=== PATIENT | male | born 1960 | race Caucasian/White ===

== ENCOUNTER → 2017-02-09 | Outpatient (CLI) | payer MEDICARE, OTHER ==
[2013-12-18 11:31] VITALS: BP 132/81
[~2017-02-09] MED LIST: DOCU100C28 PO; LORA10TA55 PO; MEGE400O PO; METO-269 PO; MULT1TAB90 PO; OMEP20CA9 PO; POLY17PO3 PO; SIMV10TA3 PO; TEMA15CA PO
--- NOTE | 2017-02-09 13:23 | CARD ---
APPROVED REPORT EXAM: Two-dimensional and M-mode echocardiogram with Doppler and color Doppler. Other Information Quality : Technically Limited Technically limited study due to pectus excavatum INDICATION Murmur 2D DIMENSIONS RVDd1.9 (2.9-3.5cm)Left Atrium(2D)2.4 (1.6-4.0cm) IVSd1.0 (0.7-1.1cm)Aortic Root(2D)2.5 (2.0-3.7cm) LVDd4.8 (3.9-5.9cm)LVOT Diameter2.1 (1.8-2.4cm) PWd1.0 (0.7-1.1cm)LVDs4.0 (2.5-4.0cm) FS (%) 20.0 %SV38.4 ml LVEF(%)40.0 (>50%) LEFT VENTRICLE The left ventricle is normal size. There is normal left ventricular wall thickness. The left ventricu lar systolic function is normal and the ejection fraction is within normal range. EF 55% Grossly norm al wall motion on significantly limited images due to body habitus. RIGHT VENTRICLE The right ventricle is normal size. ATRIA Not well visualized. The right atrium is not well visualized. Interatrial septum not well visualized. AORTIC VALVE The aortic valve is sclerotic but opens well. Doppler and Color Flow revealed no significant aortic r egurgitation. There is no significant aortic valvular stenosis. MITRAL VALVE The mitral valve is thickened but opens well. There is no evidence of mitral valve prolapse. There is no mitral valve stenosis. Doppler and Color Flow revealed no mitral valve regurgitation noted. TRICUSPID VALVE The tricuspid valve is not well visualized but appears to be functioning normally by Doppler interrog ation. Doppler and Color Flow revealed no tricuspid valve regurgitation noted. There is no tricuspid valve stenosis. PULMONIC VALVE The pulmonic valve is not well visualized but appears to be functioning normally by Doppler interroga tion. Doppler and Color Flow revealed no pulmonic valvular regurgitation. There is no pulmonic valvul ar stenosis. GREAT VESSELS The aortic root is normal in size. The ascending aorta is not well seen. The IVC was not visualized. PERICARDIAL EFFUSION There is no evidence of significant pericardial effusion. Critical Notification Critical Value: No <Conclusion> Grossly normal wall motion on significantly limited images due to body habitus. The left ventricular systolic function is normal and the ejection fraction is within normal range. EF 55%
== END | disposition home or self-care (01) ==
LOC: ECHO 08:57
PROVIDERS: ATTEND Internal Medicine Cardiovascular Disease
DX: R01.1 Cardiac murmur, unspecified (principal)
CPT/HCPCS: 93306

== ENCOUNTER → 2017-07-07 | Outpatient (CLI) | payer MEDICARE, OTHER | END | disposition home or self-care (01) | LOC: US 10:11 | DX: N50.89 Other specified disorders of the male genital organs (principal) | CPT/HCPCS: 76870 ==

== ENCOUNTER 2018-05-29 10:54 | Inpatient (IN) | payer MEDICARE, OTHER ==
[2018-05-29] VITALS (9 sets, daily range): BP systolic 95–134; BP diastolic 61–75
[~2018-05-29] VITALS: Ht 198.1 cm; Wt 75.4 kg
[~2018-05-29 10:54] MED LIST changes: +POLY17PO28 PO; -POLY17PO3 PO
[2018-05-29] MEDS ORDERED: IV NORMAL SALINE 1000ML BAG 1,000 ML IV ONE ×2 (11:00→13:45)
[2018-05-29] MEDS ORDERED: ONDANSETRON PF 4 MG/2 ML VIAL. IV ONE (11:00)
[2018-05-29] MEDS ORDERED: PANTOPRAZOLE IV PUSH 40 MG VIAL. IVP ONE (11:00)
--- NOTE | 2018-05-29 11:06 | EKG ---
[facility] [address] [place] [address] Test Date: 2018-05-29 Test Time: 11:00:53 Pat Name: NELY NAVARRO Department: Room: Gender: M Resident Surgeon: CHIOMA : 1960 Requested By: ANNY MANN Order Number: [id number] Reading MD: Measurements Intervals [place] Rate: 138 P: -99 SD: 92 QRS: -118 QRSD: 94 T: 78 QT: 330 QTc: 508 Interpretive Statements SUPRAVENTRICULAR TACHYCARDIA VENTRICULAR PREMATURE COMPLEX(ES) ABNORMAL RIGHT SUPERIOR AXIS DEVIATION R-S TRANSITION ZONE IN V LEADS DISPLACED TO THE LEFT S1,S2,S3 PATTERN LEFT ANTERIOR FASCICULAR BLOCK INCOMPLETE RIGHT BUNDLE BRANCH BLOCK QRS(T) CONTOUR ABNORMALITY CONSIDER ANTEROSEPTAL MYOCARDIAL DAMAGE ABNORMAL ECG RI6.01 No previous ECG available for comparison
[2018-05-29 11:18] LABS: BASO % 0 % (0-3); EOS % 0 % (0-3); HEMATOCRIT 42.3 % (39.0-53.0); HEMOGLOBIN 14.6 g/dL (13.0-17.5); LYMPH # 0.5 x10^3/uL (1.0-4.8); LYMPH % 6 % (24-48); MEAN CORPUSCULAR HEMOGLOBIN 30 pg (25-35); MEAN CORPUSCULAR HGB CONC 35 g/dL (31-37); MEAN CORPUSCULAR VOLUME 86 fL (79-100); MONO # 0.4 x10^3/uL (0.0-1.1); MONO % 5 % (0-9); NEUT # 7.2 x10^3uL (1.8-7.7); NEUT % 89 % (31-73); PLATELET COUNT 172 x10^3/uL (140-400); RED BLOOD COUNT 4.92 x10^6/uL (4.30-5.70); RED CELL DISTRIBUTION WIDTH 13.9 % (11.5-14.5); WHITE BLOOD COUNT 8.1 x10^3/uL (4.0-11.0)
[2018-05-29 11:27] LABS: CREATININE 1.1 mg/dL (0.7-1.3); GFR 68.8; POTASSIUM 3.5 mmol/L (3.5-5.1); PROTHROMBIN TIME PATIENT 14.1 SEC (11.7-14.0)
[2018-05-29] MEDS ORDERED: fentaNYL PF VIAL 100 MCG/2 ML VIAL IV ONE (11:30)
[2018-05-29 11:33] LABS: ALBUMIN 3.8 g/dL (3.4-5.0); ALBUMIN/GLOBULIN RATIO 1.2 (1.0-1.7); MAGNESIUM 1.6 mg/dL (1.8-2.4); TOTAL BILIRUBIN 0.6 mg/dL (0.2-1.0)
[2018-05-29 11:40] LABS: FECAL OB PT POSITIVE (NEG)
[2018-05-29 11:41] LABS: CREATINE KINASE 96 U/L (39-308)
[2018-05-29] MEDS ORDERED: IOHEXOL 300 MG/ML 100ML VIAL. IV ONE (11:45)
--- NOTE | 2018-05-29 11:45 | PHYS DOC ---
Past Medical History Past Medical History: GERD, High Cholesterol, Hypertension, Other Additional Past Medical Histor: marfan syndrome, "heart problems", pectus excavatum Past Medical History Unable to obtain- poor historian Past Surgical History: Hip Replacement Additional Past Surgical Histo: right hip, Chest wall surgery? Past Surgical History Unable to obtain- poor historian Alcohol Use: None Drug Use: None Social History Unable to obtain- poor historian Adult General Chief Complaint Chief Complaint: HEMATEMESIS/VOMITING BLOOD HPI HPI This is a 58-year-old male with a past medical history of Marfan syndrome, presenting to the emergency department via EMS with concern for hematemesis. Patient states he began feeling nauseous and started vomiting 3 days ago, this has also been associated with diffuse abdominal pain and chest pain that occurs during episodes of vomiting. Patient cannot describe the appearance of his vomit and does not remember when he first noticed seen blood in his vomit. EMS reports noting "coffee ground emesis" on patient's chest and shirt upon their arrival. Denies use of blood thinners. History difficult to obtain secondary to a baseline speech impediment & pt is a poor historian Review of Systems Review of Systems Cardiovascular: Reports chest pain that occurs with vomiting GI: Reports abdominal pain, nausea, vomiting, hematemesis; Denies bloody stools , diarrhea [] Unable to obtain complete ROS secondary to baseline speech impediment & poor historian Current Medications Current Medications Current Medications Medications (Trade) Dose Ordered Sig/Lonnie Start Time Stop Time Status Last Admin Dose Admin Azithromycin 250 ml @ 250 mls/hr 1X ONCE 05/29/18 13:15 05/29/18 14:14 DC 05/29/18 13:52 250 MLS/HR Ceftriaxone Sodium (Rocephin) 1 gm 1X ONCE 05/29/18 13:15 05/29/18 13:18 DC 05/29/18 13:50 1 GM Fentanyl Citrate (Fentanyl 2ml Vial) 50 mcg 1X ONCE 05/29/18 11:30 05/29/18 11:31 DC 05/29/18 11:31 50 MCG Iohexol (Omnipaque 300 Mg/ml) 75 ml 1X ONCE 05/29/18 11:45 05/29/18 11:46 DC 05/29/18 12:04 75 ML Ondansetron HCl (Zofran) 4 mg 1X ONCE 05/29/18 11:00 05/29/18 11:02 DC 05/29/18 11:27 4 MG Pantoprazole Sodium (PROTONIX VIAL for IV PUSH) 80 mg 1X ONCE 05/29/18 11:00 05/29/18 11:02 DC 05/29/18 11:34 80 MG Pantoprazole Sodium 80 mg/ Sodium Chloride 100 ml @ 10 mls/hr 1X ONCE 05/29/18 12:00 05/29/18 21:59 05/29/18 12:29 10 MLS/HR Sodium Chloride 1,000 ml @ 1,000 mls/hr 1X ONCE 05/29/18 13:45 05/29/18 14:44 DC 05/29/18 14:04 1,000 MLS/HR Allergies Allergies Allergies Coded Allergies Type Severity Reaction Last Updated Verified No Known Drug Allergies 12/11/13 No Physical Exam Physical Exam Constitutional: Marfanoid body habitus, presence of a moderate amount of dried dark red blood on shirt HENT: Normocephalic, atraumatic Eyes: Conjunctiva normal, no discharge. [] Neck: Normal range of motion, no tenderness, supple, no meningeal signs [] Cardiovascular: Tachycardic, regular rhythm, early systolic murmur, left carotid bruit Lungs & Thorax: Bilateral breath sounds clear to auscultation, pectus carinatum deformity, midline chest incision scar noted (pt uncertain of the type of surgery he had) [] Abdomen: Soft, mild diffuse tenderness : Left testicular swelling and mild tenderness noted, possible hydrocele Rectal exam: Stool- brown, no gross blood, no external or internal hemorrhoids appreciated. Skin: Warm, dry, no erythema, no rash, pallor noted Back: No tenderness, no CVA tenderness. [] Extremities: Arachnodactyly, no tenderness, no cyanosis, no clubbing, ROM intact , no edema. [] Neurologic: Alert, normal motor function, normal sensory function, no focal deficits noted. [] Psychologic: Affect normal, mood anxious [] Current Patient Data Vital Signs Vital Signs Date Time Temp Pulse Resp B/P (MAP) Pulse Ox O2 Delivery O2 Flow Rate FiO2 05/29/18 13:35 118 114/68 (83) 95 Room Air 05/29/18 11:31 21 05/29/18 10:54 99.1 99.1 Lab Values Laboratory Tests Test 05/29/18 11:05 05/29/18 11:10 05/29/18 11:12 05/29/18 12:47 White Blood Count 8.1 x10^3/uL (4.0-11.0) Red Blood Count 4.92 x10^6/uL (4.30-5.70) Hemoglobin 14.6 g/dL (13.0-17.5) Hematocrit 42.3 % (39.0-53.0) Mean Corpuscular Volume 86 fL (79-100) Mean Corpuscular Hemoglobin 30 pg (25-35) Mean Corpuscular Hemoglobin Concent 35 g/dL (31-37) Red Cell Distribution Width 13.9 % (11.5-14.5) Platelet Count 172 x10^3/uL (140-400) Neutrophils (%) (Auto) 89 % (31-73) H Lymphocytes (%) (Auto) 6 % (24-48) L Monocytes (%) (Auto) 5 % (0-9) Eosinophils (%) (Auto) 0 % (0-3) Basophils (%) (Auto) 0 % (0-3) Neutrophils # (Auto) 7.2 x10^3uL (1.8-7.7) Lymphocytes # (Auto) 0.5 x10^3/uL (1.0-4.8) L Monocytes # (Auto) 0.4 x10^3/uL (0.0-1.1) Eosinophils # (Auto) 0.0 x10^3/uL (0.0-0.7) Basophils # (Auto) 0.0 x10^3/uL (0.0-0.2) Segmented Neutrophils % 65 % (35-66) Band Neutrophils % 25 % (0-9) H Lymphocytes % 6 % (24-48) L Monocytes % 3 % (0-10) Metamyelocytes % 1 % (0-0) H Platelet Estimate Adequate (ADEQUATE) Prothrombin Time 14.1 SEC (11.7-14.0) H Prothrombin Time INR 1.1 (0.8-1.1) PTT 33 SEC (24-38) Sodium Level 140 mmol/L (136-145) Potassium Level 3.5 mmol/L (3.5-5.1) Chloride Level 103 mmol/L (98-107) Carbon Dioxide Level 29 mmol/L (21-32) Anion Gap 8 (6-14) Blood Urea Nitrogen 18 mg/dL (8-26) Creatinine 1.1 mg/dL (0.7-1.3) Estimated GFR (Cockcroft-Gault) 68.8 BUN/Creatinine Ratio 16 (6-20) Glucose Level 149 mg/dL (70-99) H Lactic Acid Level 2.0 mmol/L (0.4-2.0) Calcium Level 9.0 mg/dL (8.5-10.1) Magnesium Level 1.6 mg/dL (1.8-2.4) L Total Bilirubin 0.6 mg/dL (0.2-1.0) Aspartate Amino Transferase (AST) 17 U/L (15-37) Alanine Aminotransferase (ALT) 29 U/L (16-63) Alkaline Phosphatase 105 U/L (46-116) Creatine Kinase 96 U/L (39-308) Creatine Kinase MB (Mass) < 0.5 ng/mL (0.0-3.6) Creatine Kinase MB Relative Index % (0-4) Troponin I Quantitative < 0.017 ng/mL (0.000-0.055) Total Protein 7.0 g/dL (6.4-8.2) Albumin 3.8 g/dL (3.4-5.0) Albumin/Globulin Ratio 1.2 (1.0-1.7) Lipase 117 U/L (73-393) Stool Occult Blood Positive (NEG) Glucose (Fingerstick) 142 mg/dL (70-99) H Urine Collection Type U cath Urine Color Yellow Urine Clarity Clear Urine pH 6.5 Urine Specific Lindsay >=1.030 Urine Protein Negative mg/dL (NEG-TRACE) Urine Glucose (UA) Negative mg/dL (NEG) Urine Ketones (Stick) Trace mg/dL (NEG) Urine Blood Negative (NEG) Urine Nitrite Negative (NEG) Urine Bilirubin Negative (NEG) Urine Urobilinogen Dipstick 1.0 mg/dL (0.2 mg/dL) Urine Leukocyte Esterase Negative (NEG) Urine RBC 1-2 /HPF (0-2) Urine WBC 0 /HPF (0-4) Urine Bacteria 0 /HPF (0-FEW) Urine Mucus Mod /LPF Laboratory Tests 05/29/18 11:05 Laboratory Tests 05/29/18 11:05 EKG EKG 05/29/2018 @ 1100: Sinus tachycardia at 138 bpm, RBBB, no STEMI Radiology/Procedures Radiology/Procedures PROCEDURE: CT CHEST ABD PELVIS W/CONTRAST CT chest, abdomen and pelvis with contrast PQRS statement: CT scans at this facility use dose reduction including either automated exposure control, iterative reconstructions, and /or weight based radiation dosing via mA and kV modification when appropriate to reduce radiation dose to as low as reasonably achievable. HISTORY: Chest and epigastric pain, hemoptysis. TECHNIQUE: Helical CT imaging of the chest, abdomen and pelvis with 75 mL Omnipaque 300 intravenous contrast. Chest findings: Sternal suture wires in pectus excavatum. Heart size normal. Pulmonary vessels and thoracic aorta are unremarkable. There is abnormal fluid distention and marked wall thickening throughout thoracic esophagus leading up to a small sliding hiatal hernia of the gastric cardia. Mild apical pleural-parenchymal scarring. Nodular opacities of the left lower lobe. No pleural effusions. Abdomen findings: Hiatal hernia of the gastric cardia. Mild atrophy of the left hepatic lobe. Pancreas, gallbladder, spleen, adrenal glands and kidneys are unremarkable. Mild calcified plaque of the aorta and iliac arteries. No bowel obstruction or inflammatory change. Appendix is poorly visualized. No abdominal fluid or adenopathy. Pelvis findings: Large fatty left inguinal hernia extending down the scrotum, small bowel loops in the sigmoid colon approaches the mouth of the hernia without intrarenal hernia sac. Bladder, prostate and rectum are unremarkable. No fluid or adenopathy. Extensive streak artifact from bilateral hip arthroplasties. IMPRESSION: 1. Nodular opacities of the left lower lobe likely pneumonia. Follow-up CT imaging in 3 months is advised to document this resolves to exclude the possibility of neoplasia per the Fleischner guidelines. 2. Small sliding hiatal hernia of the upper stomach. Abnormal fluid distention and abnormal wall thickening throughout the thoracic esophagus, likely representing esophagitis. Esophageal malignancy is a secondary consideration but considered less likely given the diffuse long segmental nature of involvement. 3. Large fatty left inguinal hernia. Exposure: One or more of the following individualized dose reduction techniques were utilized for this examination: 1. Automated exposure control 2. Adjustment of the mA and/or kV according to patient size 3. Use of iterative reconstruction technique Electronically signed by: Rahul Bailey MD (05/29/2018 12:28 PM) [facility] PROCEDURE: TESTICULAR/SCROTUM Examination: Ultrasound testis HISTORY: History of left testicular pain, swelling COMPARISON: 07/07/2017 FINDINGS: The right testis measures 4.6 x 2.0 x 3.1 cm. Right testis appears somewhat slightly heterogenous. The left testis measures 3.0 x 1.5 x 2.2 cm Blood flow identified in the right and left testis. There is a 7.6 cm echogenicity identified between the testis probably the large left-sided inguinal hernia seen on the CT scan. Right and left epididymis grossly appears unremarkable. IMPRESSION: 1. Large echogenicity measuring 7.6 cm identified within the right and left testis probably large fat-containing left-sided inguinal hernia seen on CT scan. 2. Slight heterogeneous appearance of the right testis, nonspecific. Close interval follow-up examination can be considered. Course & Med Decision Making Course & Med Decision Making Pertinent Labs and Imaging studies reviewed. (See chart for details) This is a 58-year-old male with a past medical history of Marfan syndrome, presenting to the emergency department via EMS with concern for hematemesis. Dried vomitus with signs of blood noted on patient's shirt upon arrival. Denies ETOH consumption. Patient noted to be tachypneic and tachycardic. SIRS positive. Bandemia noted. Lactic acid WNL. IV fluid hydration provided. Empiric Protonix bolus and drip initiated. Occult stool obtained and positive. EKG stable. CT chest/abdomen/pelvis obtained with findings concerning for left lower lobe pneumonia, as well as esophagitis. Empiric antibiotics given. Left testicular scrotal swelling noted area. Ultrasound obtained with findings consistent for inguinal hernia. Patient requiring admission for further evaluation and treatment. Discussed with Dr. Plummer (PCP) who is in agreement with admission. Requests ICU admission and GI consultation. Discussed case with Dr. Bueno (GI) who is in agreement with consult. Discussed findings and plan with patient and family, who acknowledge understanding and agreement. Dragon Disclaimer Dragon Disclaimer This electronic medical record was generated, in whole or in part, using a voice recognition dictation system. Departure Departure Impression: Primary Impression: Pneumonia Additional Impressions: GI bleed Bandemia SIRS (systemic inflammatory response syndrome) Swelling of left testicle Disposition: ADMITTED INPATIENT Admitting Physician: Aniyah Plummer Condition: GUARDED Referrals: ANIYAH PLUMMER MD (PCP) Critical Care Time Critical care time was 30 minutes which includes time at bedside, spent in discussion of patient's care with specialists and/or family members, with interpretation of laboratory and/or radiological studies and is exclusive of procedures. Problem Qualifiers Primary Impression: Pneumonia Pneumonia type: due to unspecified organism Laterality: left Lung location : lower lobe of lung Qualified Codes: J18.1 - Lobar pneumonia, unspecified organism Additional Impressions: GI bleed GI bleed type/associated pathology: unspecified gastrointestinal hemorrhage type Qualified Codes: K92.2 - Gastrointestinal hemorrhage, unspecified ANNY MANN DO May 29, 2018 11:45
[2018-05-29] MEDS ORDERED: PANTOPRAZOLE SODIUM IV DRIP 80 MG in IV NORMAL SALINE 100ML 100 ML IV ONE (12:00)
--- NOTE | 2018-05-29 12:32 | RAD ---
CT chest, abdomen and pelvis with contrast PQRS statement: CT scans at this facility use dose reduction including either automated exposure control, iterative reconstructions, and /or weight based radiation dosing via mA and kV modification when appropriate to reduce radiation dose to as low as reasonably achievable. HISTORY: Chest and epigastric pain, hemoptysis. TECHNIQUE: Helical CT imaging of the chest, abdomen and pelvis with 75 mL Omnipaque 300 intravenous contrast. Chest findings: Sternal suture wires in pectus excavatum. Heart size normal. Pulmonary vessels and thoracic aorta are unremarkable. There is abnormal fluid distention and marked wall thickening throughout thoracic esophagus leading up to a small sliding hiatal hernia of the gastric cardia. Mild apical pleural-parenchymal scarring. Nodular opacities of the left lower lobe. No pleural effusions. Abdomen findings: Hiatal hernia of the gastric cardia. Mild atrophy of the left hepatic lobe. Pancreas, gallbladder, spleen, adrenal glands and kidneys are unremarkable. Mild calcified plaque of the aorta and iliac arteries. No bowel obstruction or inflammatory change. Appendix is poorly visualized. No abdominal fluid or adenopathy. Pelvis findings: Large fatty left inguinal hernia extending down the scrotum, small bowel loops in the sigmoid colon approaches the mouth of the hernia without intrarenal hernia sac. Bladder, prostate and rectum are unremarkable. No fluid or adenopathy. Extensive streak artifact from bilateral hip arthroplasties. IMPRESSION: 1. Nodular opacities of the left lower lobe likely pneumonia. Follow-up CT imaging in 3 months is advised to document this resolves to exclude the possibility of neoplasia per the Fleischner guidelines. 2. Small sliding hiatal hernia of the upper stomach. Abnormal fluid distention and abnormal wall thickening throughout the thoracic esophagus, likely representing esophagitis. Esophageal malignancy is a secondary consideration but considered less likely given the diffuse long segmental nature of involvement. 3. Large fatty left inguinal hernia. Exposure: One or more of the following individualized dose reduction techniques were utilized for this examination: 1. Automated exposure control 2. Adjustment of the mA and/or kV according to patient size 3. Use of iterative reconstruction technique Electronically signed by: Rahul Bailey MD (05/29/2018 12:28 PM) [facility]
[2018-05-29 12:59] LABS: BILIRUBIN,URINE NEGATIVE (NEG); CLARITY,URINE CLEAR; COLOR,URINE YELLOW; NITRITE,URINE NEGATIVE (NEG); PH,URINE 6.5; PROTEIN,URINE NEGATIVE (NEG-TRACE)
[2018-05-29 13:08] LABS: % BANDS 25 % (0-9); % LYMPHS 6 % (24-48); % METAS 1 % (0-0); % MONOS 3 % (0-10); % SEGS 65 % (35-66)
[2018-05-29 13:09] LABS: PLT ESTIMATE ADEQUATE (ADEQUATE)
[2018-05-29 13:10] LABS: BACTERIA,URINE 0 /HPF (0-FEW); WBC,URINE 0 /HPF (0-4)
[2018-05-29] MEDS ORDERED: AZITHRMYCN 500MG IVPB FOR OMNI 250 ML IV ONE (13:15)
[2018-05-29] MEDS ORDERED: cefTRIAXone IV Push 1 GM VIAL. IVP ONE (13:15)
[2018-05-29] MEDS ORDERED: ONDANSETRON PF 4 MG/2 ML VIAL. IV PRN (14:00)
[2018-05-29] MEDS ORDERED: IPRATRPIUM/ALBUTEROL 0.5/2.5MG 3 ML NEBU. NEB ONE (15:45)
--- NOTE | 2018-05-29 15:50 | PDOC ---
Provider Note Provider Note Pt seen in ICU. H&P dictated. #[id number] IHSAN PLUMMER MD May 29, 2018 15:50
[2018-05-29] MEDS: POTASSIUM CL 20MEQ D5-0.9%NACL 1,000 ML IV SCH (15:59)
[2018-05-29] MEDS ORDERED: SIMV10TA3 PO (16:17)
--- NOTE | 2018-05-29 16:26 | HP ---
ADMIT DATE: 05/29/2018 LOCATION: 107. REASON FOR ADMISSION TO THE HOSPITAL: Vomiting for last 3 days, possible upper GI bleed, vomiting some blood, also pneumonia. HISTORY OF PRESENT ILLNESS: The patient is a 58-year-old male with history of Marfan syndrome, pectus excavatum, COPD. He was having nausea and vomiting for the last 2-3 days, got progressively worse. He was noticed to vomit some blood and also when he came in, chest x-ray showed infiltrates in the lungs, was admitted with diagnosis of both pneumonia as well as upper GI bleed, was admitted to the ICU. Hemoglobin remained stable. His blood pressure was stable. PAST MEDICAL HISTORY: Has a history of Marfan syndrome, pectus excavatum, hypertension, hyperlipidemia, GERD. PAST SURGICAL HISTORY: Right hip replacement. ALLERGIES: No known drug allergies. MEDICATIONS AT HOME: Colace daily, multivitamin daily, simvastatin 10 mg daily, losartan 10 mg daily, metoprolol 50 mg daily, omeprazole 20 mg daily, MiraLax 17 grams daily. PERSONAL HISTORY: Denies smoking, alcohol, drug abuse. SOCIAL HISTORY: He lives in a jail, able to ambulate with a walker. FAMILY HISTORY: All his brothers are tall, has Marfan syndrome in the family. REVIEW OF SYSTEMS: Cardiac lynch, denies any chest pain. He has vomiting for a couple of days, some low-grade fever and vomiting blood one time. PHYSICAL EXAMINATION: GENERAL: The patient not in any distress. VITAL SIGNS: Temperature 99.9, pulse 108-138, respirations 10-32, blood pressure 135/80, 95% on room air. HEENT: Head is atraumatic. Pupils equal. Oral cavity: Dentures. NECK: Supple. Thyroid not enlarged. JVD not elevated. CHEST: Pectus excavatum. CARDIOVASCULAR: S1, S2. No murmurs. LUNGS: Clear to auscultation. ABDOMEN: Slightly tender in the epigastric area. No rebound. Bowel sounds present. No mass palpable. EXTERNAL GENITALIA: No Snow. RECTAL: Deferred. EXTREMITIES: Had a right hip scar of hip replacement. No edema. NEUROLOGIC: Moving all extremities. No focal deficits noted. LABORATORY DATA: Shows a white count of 8, hemoglobin 14.6, platelets 172. INR 1.1. Electrolytes show sodium 130, potassium 3.5, chloride 103, bicarbonate 29, BUN 18, creatinine 1.1, glucose 149, lactic acid 2, magnesium 1.6. LFTs were normal. Lipase was normal. Urine was negative. Stool for occult blood was positive. CT of the chest, abdomen and pelvis shows left lower lobe infiltrate, possible pneumonia, small sliding hernia, upper stomach dilatation of the esophagus, possible esophagitis; left inguinal hernia. FINAL IMPRESSION: 1. Upper gastrointestinal bleed. 2. Community-acquired pneumonia. 3. Possible esophagitis. 4. Marfan syndrome. 5. Pectus excavatum. 6. History of hip replacement. 7. Hypertension. 8. Hyperlipidemia. 9. Lt scrotal swelling PLAN: At this time, was admit to hospital. Blood cultures, sputum culture, start on Zithromax and Rocephin, DuoNeb 4 times daily, n.p.o., IV fluids. GI consultation, probably needs EGD. Monitor hemoglobin q.6 hours, IV Protonix. SCD for DVT prevention, hold off on Lovenox. IHSAN PLUMMER MD DR: SANDRA/maicol JOB#: [id number] / [id number] MTDD
[2018-05-29] MEDS ORDERED: DICL100G18 TP (16:27)
[2018-05-29] MEDS ORDERED: TRIA15OI TP (16:27)
[2018-05-29] MEDS ORDERED: SENN-82 PO (16:27)
[2018-05-29] MEDS ORDERED: DEXT15DR17 OP (16:27)
[2018-05-29] MEDS ORDERED: DEXL60CA2 PO (16:27)
[2018-05-29] MEDS ORDERED: ACET325T9 PO (16:27)
[2018-05-29] MEDS ORDERED: INFLUENZA VAX SCREEN BY RX. MC ONE (16:30)
--- NOTE | 2018-05-29 17:33 | RAD ---
Examination: Ultrasound testis HISTORY: History of left testicular pain, swelling COMPARISON: 07/07/2017 FINDINGS: The right testis measures 4.6 x 2.0 x 3.1 cm. Right testis appears somewhat slightly heterogenous. The left testis measures 3.0 x 1.5 x 2.2 cm Blood flow identified in the right and left testis. There is a 7.6 cm echogenicity identified between the testis probably the large left-sided inguinal hernia seen on the CT scan. Right and left epididymis grossly appears unremarkable. IMPRESSION: 1. Large echogenicity measuring 7.6 cm identified within the right and left testis probably large fat-containing left-sided inguinal hernia seen on CT scan. 2. Slight heterogeneous appearance of the right testis, nonspecific. Close interval follow-up examination can be considered. Electronically signed by: Lambert Holt MD (05/29/2018 5:28 PM) [facility]
[2018-05-29] MEDS: IPRATRPIUM/ALBUTEROL 0.5/2.5MG 3 ML NEBU. NEB SCH (20:04)
[2018-05-29] MEDS: PANTOPRAZOLE SODIUM IV DRIP 80 MG in IV NORMAL SALINE 100ML 100 ML IV SCH (23:24)
[2018-05-30] VITALS (13 sets, daily range): BP systolic 96–140; BP diastolic 56–68
[2018-05-30] MEDS: fentaNYL PF VIAL 100 MCG/2 ML VIAL IV PRN ×4 (01:59→20:52)
[2018-05-30 04:36] LABS: BASO % 0 % (0-3); EOS % 0 % (0-3); HEMATOCRIT 40.2 % (39.0-53.0); HEMOGLOBIN 13.4 g/dL (13.0-17.5); LYMPH # 1.7 x10^3/uL (1.0-4.8); LYMPH % 15 % (24-48); MEAN CORPUSCULAR HEMOGLOBIN 29 pg (25-35); MEAN CORPUSCULAR HGB CONC 33 g/dL (31-37); MEAN CORPUSCULAR VOLUME 88 fL (79-100); MONO # 0.7 x10^3/uL (0.0-1.1); MONO % 7 % (0-9); NEUT # 8.6 x10^3uL (1.8-7.7); NEUT % 77 % (31-73); PLATELET COUNT 155 x10^3/uL (140-400); RED BLOOD COUNT 4.59 x10^6/uL (4.30-5.70); RED CELL DISTRIBUTION WIDTH 14.3 % (11.5-14.5); WHITE BLOOD COUNT 11.1 x10^3/uL (4.0-11.0)
[2018-05-30 05:00] LABS: CALCIUM 8.2 mg/dL (8.5-10.1); CREATININE 1.2 mg/dL (0.7-1.3); GFR 62.2; POTASSIUM 3.4 mmol/L (3.5-5.1)
[2018-05-30] MEDS: POTASSIUM CL 20MEQ D5-0.9%NACL 1,000 ML IV SCH ×2 (05:04→20:53)
[2018-05-30] MEDS: IPRATRPIUM/ALBUTEROL 0.5/2.5MG 3 ML NEBU. NEB SCH ×4 (08:23→19:44)
[2018-05-30] MEDS: PANTOPRAZOLE SODIUM IV DRIP 80 MG in IV NORMAL SALINE 100ML 100 ML IV SCH ×2 (09:30→20:59)
--- NOTE | 2018-05-30 09:30 | PDOC ---
PROGRESS NOTES Subjective Subjective no more active vomiting Objective Objective Vital Signs Date Time Temp Pulse Resp B/P (MAP) Pulse Ox O2 Delivery O2 Flow Rate FiO2 05/30/18 09:03 18 Room Air 05/30/18 09:00 100 122/68 (86) 96 05/30/18 08:00 98.2 98.2 Intake and Output 05/30/18 07:00 Intake Total 3354 ml Output Total 500 ml Balance 2854 ml Intake Oral 0 ml IV Total 3354 ml Output Urine Total 500 ml Physical Exam Abdomen: Normal bowel sounds, Soft Heart: Regular rate, Normal S1, Normal S2 Extremities: No clubbing General: Alert, Oriented X3 Lungs: Clear to auscultation MUSCULOSKELETAL: Other (pectus excavatun) Psych/Mental Status: Mood NL Skin: No breakdown COMMENT left testicular swelling Diagnosis Problem List Problems Medical Problems: (1) Bandemia Status: Acute (2) SIRS (systemic inflammatory response syndrome) Status: Acute (3) Swelling of left testicle Status: Acute Assessment Assessment Problems Medical Problems: (1) Bandemia Status: Acute (2) SIRS (systemic inflammatory response syndrome) Status: Acute (3) Swelling of left testicle Status: Acute FINAL IMPRESSION: 1. Upper gastrointestinal bleed. 2. Community-acquired pneumonia. 3. Possible esophagitis. 4. Marfan syndrome. 5. Pectus excavatum. 6. History of hip replacement. 7. Hypertension. 8. Hyperlipidemia. 9.Scrotal swelling lt side. PLAN: Hb remained stable ,13 EGD today iv antibiotics. Urology consult routine for scrotal swelling. iv protonix. iv antibiotics for pneumonia At this time, was admit to hospital. Blood cultures, sputum culture, start on Zithromax and Rocephin, DuoNeb 4 times daily, n.p.o., IV fluids. GI consultation, probably needs EGD. Monitor hemoglobin q.6 hours, IV Protonix. SCD for DVT prevention, hold off on Lovenox. Plan Plan of Care Problems Medical Problems: (1) Bandemia Status: Acute (2) SIRS (systemic inflammatory response syndrome) Status: Acute (3) Swelling of left testicle Status: Acute Comment Review of Relevant I have reviewed the following items sy (where applicable) has been applied. Labs Laboratory Tests Test 05/29/18 11:05 05/29/18 11:10 05/29/18 11:12 12/9/18 12:47 White Blood Count 8.1 x10^3/uL (4.0-11.0) Red Blood Count 4.92 x10^6/uL (4.30-5.70) Hemoglobin 14.6 g/dL (13.0-17.5) Hematocrit 42.3 % (39.0-53.0) Mean Corpuscular Volume 86 fL (79-100) Mean Corpuscular Hemoglobin 30 pg (25-35) Mean Corpuscular Hemoglobin Concent 35 g/dL (31-37) Red Cell Distribution Width 13.9 % (11.5-14.5) Platelet Count 172 x10^3/uL (140-400) Neutrophils (%) (Auto) 89 % (31-73) Lymphocytes (%) (Auto) 6 % (24-48) Monocytes (%) (Auto) 5 % (0-9) Eosinophils (%) (Auto) 0 % (0-3) Basophils (%) (Auto) 0 % (0-3) Neutrophils # (Auto) 7.2 x10^3uL (1.8-7.7) Lymphocytes # (Auto) 0.5 x10^3/uL (1.0-4.8) Monocytes # (Auto) 0.4 x10^3/uL (0.0-1.1) Eosinophils # (Auto) 0.0 x10^3/uL (0.0-0.7) Basophils # (Auto) 0.0 x10^3/uL (0.0-0.2) Segmented Neutrophils % 65 % (35-66) Band Neutrophils % 25 % (0-9) Lymphocytes % 6 % (24-48) Monocytes % 3 % (0-10) Metamyelocytes % 1 % (0-0) Platelet Estimate Adequate (ADEQUATE) Prothrombin Time 14.1 SEC (11.7-14.0) Prothromb Time International Ratio 1.1 (0.8-1.1) Activated Partial Thromboplast Time 33 SEC (24-38) Sodium Level 140 mmol/L (136-145) Potassium Level 3.5 mmol/L (3.5-5.1) Chloride Level 103 mmol/L (98-107) Carbon Dioxide Level 29 mmol/L (21-32) Anion Gap 8 (6-14) Blood Urea Nitrogen 18 mg/dL (8-26) Creatinine 1.1 mg/dL (0.7-1.3) Estimated GFR (Cockcroft-Gault) 68.8 BUN/Creatinine Ratio 16 (6-20) Glucose Level 149 mg/dL (70-99) Lactic Acid Level 2.0 mmol/L (0.4-2.0) Calcium Level 9.0 mg/dL (8.5-10.1) Magnesium Level 1.6 mg/dL (1.8-2.4) Total Bilirubin 0.6 mg/dL (0.2-1.0) Aspartate Amino Transf (AST/SGOT) 17 U/L (15-37) Alanine Aminotransferase (ALT/SGPT) 29 U/L (16-63) Alkaline Phosphatase 105 U/L (46-116) Creatine Kinase 96 U/L (39-308) Creatine Kinase MB (Mass) < 0.5 ng/mL (0.0-3.6) Creatine Kinase MB Relative Index % (0-4) Troponin I Quantitative < 0.017 ng/mL (0.000-0.055) Total Protein 7.0 g/dL (6.4-8.2) Albumin 3.8 g/dL (3.4-5.0) Albumin/Globulin Ratio 1.2 (1.0-1.7) Lipase 117 U/L (73-393) Stool Occult Blood Positive (NEG) Glucose (Fingerstick) 142 mg/dL (70-99) Urine Collection Type U cath Urine Color Yellow Urine Clarity Clear Urine pH 6.5 Urine Specific [place] >=1.030 Urine Protein Negative mg/dL (NEG-TRACE) Urine Glucose (UA) Negative mg/dL (NEG) Urine Ketones (Stick) Trace mg/dL (NEG) Urine Blood Negative (NEG) Urine Nitrite Negative (NEG) Urine Bilirubin Negative (NEG) Urine Urobilinogen Dipstick 1.0 mg/dL (0.2 mg/dL) Urine Leukocyte Esterase Negative (NEG) Urine RBC 1-2 /HPF (0-2) Urine WBC 0 /HPF (0-4) Urine Bacteria 0 /HPF (0-FEW) Urine Mucus Mod /LPF Test 05/29/18 18:10 05/30/18 04:20 Hemoglobin 13.4 g/dL (13.0-17.5) 13.4 g/dL (13.0-17.5) White Blood Count 11.1 x10^3/uL (4.0-11.0) Red Blood Count 4.59 x10^6/uL (4.30-5.70) Hematocrit 40.2 % (39.0-53.0) Mean Corpuscular Volume 88 fL (79-100) Mean Corpuscular Hemoglobin 29 pg (25-35) Mean Corpuscular Hemoglobin Concent 33 g/dL (31-37) Red Cell Distribution Width 14.3 % (11.5-14.5) Platelet Count 155 x10^3/uL (140-400) Neutrophils (%) (Auto) 77 % (31-73) Lymphocytes (%) (Auto) 15 % (24-48) Monocytes (%) (Auto) 7 % (0-9) Eosinophils (%) (Auto) 0 % (0-3) Basophils (%) (Auto) 0 % (0-3) Neutrophils # (Auto) 8.6 x10^3uL (1.8-7.7) Lymphocytes # (Auto) 1.7 x10^3/uL (1.0-4.8) Monocytes # (Auto) 0.7 x10^3/uL (0.0-1.1) Eosinophils # (Auto) 0.0 x10^3/uL (0.0-0.7) Basophils # (Auto) 0.0 x10^3/uL (0.0-0.2) Sodium Level 141 mmol/L (136-145) Potassium Level 3.4 mmol/L (3.5-5.1) Chloride Level 106 mmol/L (98-107) Carbon Dioxide Level 28 mmol/L (21-32) Anion Gap 7 (6-14) Blood Urea Nitrogen 15 mg/dL (8-26) Creatinine 1.2 mg/dL (0.7-1.3) Estimated GFR (Cockcroft-Gault) 62.2 Glucose Level 126 mg/dL (70-99) Calcium Level 8.2 mg/dL (8.5-10.1) Medications Current Medications Albuterol/ Ipratropium (Duoneb) 3 ml 1X ONCE NEB Last administered on at 17:06; Start 05/29/18 at 15:45; Stop 05/29/18 at 15:46; Status DC Albuterol/ Ipratropium (Duoneb) 3 ml RTQID NEB Last administered on 05/30/18at 08:23; Start 05/29/18 at 20:00 Azithromycin 250 ml @ 250 mls/hr 1X ONCE IV Last administered on 05/29/18at 13 :52; Start 05/29/18 at 13:15; Stop 05/29/18 at 14:14; Status DC Azithromycin 250 mg/Sodium Chloride 250 ml @ 250 mls/hr Q24H IV ; Start at 15:45 Ceftriaxone Sodium (Rocephin) 1 gm 1X ONCE IVP Last administered on 05/29/18at 13:50; Start 05/29/18 at 13:15; Stop 05/29/18 at 13:18; Status DC Ceftriaxone Sodium (Rocephin) 1 gm Q24H IVP ; Start 05/30/18 at 16:00 Fentanyl Citrate (Fentanyl 2ml Vial) 50 mcg 1X ONCE IV Last administered on at 11:31; Start 05/29/18 at 11:30; Stop 05/29/18 at 11:31; Status DC Fentanyl Citrate (Fentanyl 2ml Vial) 50 mcg PRN Q2HRS PRN IV PAIN Last administered on 05/30/18at 08:33; Start 05/29/18 at 14:00 Info (FLU VACCINE SCREEN per RX) 1 each 1X ONCE MC ; Start 05/29/18 at 16:30; Stop 05/29/18 at 16:31; Status DC Iohexol (Omnipaque 300 Mg/ml) 75 ml 1X ONCE IV Last administered on 05/29/18at 12:04; Start 05/29/18 at 11:45; Stop 05/29/18 at 11:46; Status DC Ondansetron HCl (Zofran) 4 mg 1X ONCE IV Last administered on 05/29/18at 11:27 ; Start 05/29/18 at 11:00; Stop 05/29/18 at 11:02; Status DC Ondansetron HCl (Zofran) 4 mg PRN Q8HRS PRN IV NAUSEA/VOMITING; Start 05/29/18 at 14:00; Stop 05/30/18 at 13:59 Pantoprazole Sodium (PROTONIX VIAL for IV PUSH) 80 mg 1X ONCE IVP Last administered on 05/29/18at 11:34; Start 05/29/18 at 11:00; Stop 05/29/18 at 11:02 ; Status DC Pantoprazole Sodium 80 mg/ Sodium Chloride 100 ml @ 10 mls/hr 1X ONCE IV Last administered on 05/29/18at 12:29; Start 05/29/18 at 12:00; Stop 05/29/18 at 21:59; Status DC Pantoprazole Sodium 80 mg/ Sodium Chloride 100 ml @ 10 mls/hr Q10H IV Last administered on 05/29/18at 23:24; Start 05/29/18 at 23:30 Potassium Chloride/Dextrose/ Sod Cl 1,000 ml @ 75 mls/hr [id number] IV Last administered on 05/30/18at 05:04; Start 05/29/18 at 15:45 Sodium Chloride 1,000 ml @ 1,000 mls/hr 1X ONCE IV Last administered on at 11:22; Start 05/29/18 at 11:00; Stop 05/29/18 at 11:59; Status DC Sodium Chloride 1,000 ml @ 1,000 mls/hr 1X ONCE IV Last administered on at 14:04; Start 05/29/18 at 13:45; Stop 05/29/18 at 14:44; Status DC Vitals/I & O Vital Sign - Last 24 Hours 05/29/18 05/29/18 05/29/18 05/29/18 10:54 11:10 11:31 11:40 Temp 99.1 99.1 Pulse 138 136 128 Resp 32 21 B/P (MAP) 135/80 (98) 119/76 (90) 117/70 (86) Pulse Ox 95 95 96 94 O2 Delivery Room Air Room Air Room Air Room Air 05/29/18 05/29/18 05/29/18 05/29/18 12:05 12:30 13:00 13:35 Pulse 126 122 118 B/P (MAP) 127/75 (92) 116/69 (85) 111/67 (82) 114/68 (83) Pulse Ox 95 95 95 O2 Delivery Room Air Room Air Room Air 05/29/18 05/29/18 05/29/1818 14:00 15:41 15:45 16:00 Temp 99.9 99.9 Pulse 120 120 118 Resp 12 18 B/P (MAP) 115/71 (86) 110/69 (83) 109/68 (82) Pulse Ox 95 95 95 O2 Delivery Room Air Room Air Room Air Room Air 05/29/18 05/29/18 05/29/18 05/29/18 17:00 17:14 18:00 19:00 Pulse 113 114 107 Resp 18 18 13 B/P (MAP) 112/63 (79) 110/63 (79) 95/61 (72) Pulse Ox 95 95 95 94 O2 Delivery Room Air Room Air Room Air Room Air 05/29/18 05/29/18 05/29/18 05/29/18 19:45 20:00 20:05 21:00 Temp 98.7 98.7 Pulse 107 104 Resp 18 B/P (MAP) 107/70 (82) 109/62 (78) Pulse Ox 97 95 95 O2 Delivery Room Air Room Air Room Air Room Air 05/29/18 05/29/18 05/30/18 05/30/18 22:00 23:00 00:00 00:00 Temp 98.5 98.5 Pulse 102 102 96 Resp 22 21 23 B/P (MAP) 134/75 (94) 110/64 (79) 118/67 (84) Pulse Ox 94 94 96 O2 Delivery Room Air Room Air Room Air Room Air 05/30/18 05/30/18 05/30/18 05/30/18 01:00 01:59 02:00 02:30 Pulse 94 111 Resp 24 32 28 B/P (MAP) 108/60 (76) 104/68 (80) Pulse Ox 96 96 95 95 O2 Delivery Room Air Room Air Room Air 05/30/18 05/30/18 05/30/18 05/30/18 03:00 04:00 04:00 05:00 Temp 98.5 98.5 Pulse 85 105 92 Resp 18 18 22 B/P (MAP) 98/58 (71) 96/58 (71) 97/56 (70) Pulse Ox 94 95 95 O2 Delivery Room Air Room Air Room Air Room Air 12/10/18 12/10/18 12/10/18 12/10/18 06:00 07:00 08:00 08:00 Temp 98.2 98.2 Pulse 95 111 106 Resp 18 B/P (MAP) 110/67 (81) 123/68 (86) 128/68 (88) Pulse Ox 96 96 96 O2 Delivery Room Air Room Air Room Air Room Air 05/30/18 05/30/18 05/30/18 05/30/18 08:23 08:33 09:00 09:03 Pulse 100 Resp 18 B/P (MAP) 122/68 (86) Pulse Ox 95 96 O2 Delivery Room Air Room Air Room Air Room Air Intake and Output 05/29/18 05/29/18 05/30/18 15:00 23:00 07:00 Intake Total 1000 ml 1250 ml 1104 ml Output Total 200 ml 300 ml Balance 1000 ml 1050 ml 804 ml IHSAN PLUMMER MD May 30, 2018 09:30
--- NOTE | 2018-05-30 09:41 | PDOC2 ---
GI CONSULT Reason For Consult: GI Bleed HPI: HPI: 58 y/o male who is mentally challenged admitted to ICU w/ concern for GI bleeding. He tells me was ill x 3 days w/ n/v and epigastric discomfort. Doesn 't remember vomiting blood though other notes mention this. No vomiting since admission. NPO on PPI drip w/ normal Hgb, BUN, and +fecal occult. On imaging, possible pneumonia, small sliding hiatal hernia, possible esophagitis, and large left inguinal hernia. Denies heartburn/reflux, dysphagia, chronic n/v or abd pain, diarrhea, constipation, melena, hematochezia, and weight loss. Not sure when last stooled. Summary list shows Dexilant. Recalls previous EGD long ago, no previous colonoscopy. No GB, liver, or pancreas history. Denies NSAIDs. PMH: PMH: Marfan's syndrome, pectus excavatum, MR, HTN, HLD, GERD, right hip surgery FH: Family History: No pertinent hx Social History: Smoke: No ALCOHOL: none Drugs: None ROS: Per HPI. Vitals: Vitals: Vital Signs Date Time Temp Pulse Resp B/P (MAP) Pulse Ox O2 Delivery O2 Flow Rate FiO2 05/30/18 09:03 18 Room Air 05/30/18 09:00 100 122/68 (86) 96 05/30/18 08:00 98.2 98.2 Labs: Labs: Laboratory Tests Test 05/29/18 11:05 05/29/18 11:10 05/29/18 11:12 05/29/18 12:47 White Blood Count 8.1 x10^3/uL (4.0-11.0) Red Blood Count 4.92 x10^6/uL (4.30-5.70) Hemoglobin 14.6 g/dL (13.0-17.5) Hematocrit 42.3 % (39.0-53.0) Mean Corpuscular Volume 86 fL (79-100) Mean Corpuscular Hemoglobin 30 pg (25-35) Mean Corpuscular Hemoglobin Concent 35 g/dL (31-37) Red Cell Distribution Width 13.9 % (11.5-14.5) Platelet Count 172 x10^3/uL (140-400) Neutrophils (%) (Auto) 89 % (31-73) Lymphocytes (%) (Auto) 6 % (24-48) Monocytes (%) (Auto) 5 % (0-9) Eosinophils (%) (Auto) 0 % (0-3) Basophils (%) (Auto) 0 % (0-3) Neutrophils # (Auto) 7.2 x10^3uL (1.8-7.7) Lymphocytes # (Auto) 0.5 x10^3/uL (1.0-4.8) Monocytes # (Auto) 0.4 x10^3/uL (0.0-1.1) Eosinophils # (Auto) 0.0 x10^3/uL (0.0-0.7) Basophils # (Auto) 0.0 x10^3/uL (0.0-0.2) Segmented Neutrophils % 65 % (35-66) Band Neutrophils % 25 % (0-9) Lymphocytes % 6 % (24-48) Monocytes % 3 % (0-10) Metamyelocytes % 1 % (0-0) Platelet Estimate Adequate (ADEQUATE) Prothrombin Time 14.1 SEC (11.7-14.0) Prothromb Time International Ratio 1.1 (0.8-1.1) Activated Partial Thromboplast Time 33 SEC (24-38) Sodium Level 140 mmol/L (136-145) Potassium Level 3.5 mmol/L (3.5-5.1) Chloride Level 103 mmol/L (98-107) Carbon Dioxide Level 29 mmol/L (21-32) Anion Gap 8 (6-14) Blood Urea Nitrogen 18 mg/dL (8-26) Creatinine 1.1 mg/dL (0.7-1.3) Estimated GFR (Cockcroft-Gault) 68.8 BUN/Creatinine Ratio 16 (6-20) Glucose Level 149 mg/dL (70-99) Lactic Acid Level 2.0 mmol/L (0.4-2.0) Calcium Level 9.0 mg/dL (8.5-10.1) Magnesium Level 1.6 mg/dL (1.8-2.4) Total Bilirubin 0.6 mg/dL (0.2-1.0) Aspartate Amino Transf (AST/SGOT) 17 U/L (15-37) Alanine Aminotransferase (ALT/SGPT) 29 U/L (16-63) Alkaline Phosphatase 105 U/L (46-116) Creatine Kinase 96 U/L (39-308) Creatine Kinase MB (Mass) < 0.5 ng/mL (0.0-3.6) Creatine Kinase MB Relative Index % (0-4) Troponin I Quantitative < 0.017 ng/mL (0.000-0.055) Total Protein 7.0 g/dL (6.4-8.2) Albumin 3.8 g/dL (3.4-5.0) Albumin/Globulin Ratio 1.2 (1.0-1.7) Lipase 117 U/L (73-393) Stool Occult Blood Positive (NEG) Glucose (Fingerstick) 142 mg/dL (70-99) Urine Collection Type U cath Urine Color Yellow Urine Clarity Clear Urine pH 6.5 Urine Specific [place] >=1.030 Urine Protein Negative mg/dL (NEG-TRACE) Urine Glucose (UA) Negative mg/dL (NEG) Urine Ketones (Stick) Trace mg/dL (NEG) Urine Blood Negative (NEG) Urine Nitrite Negative (NEG) Urine Bilirubin Negative (NEG) Urine Urobilinogen Dipstick 1.0 mg/dL (0.2 mg/dL) Urine Leukocyte Esterase Negative (NEG) Urine RBC 1-2 /HPF (0-2) Urine WBC 0 /HPF (0-4) Urine Bacteria 0 /HPF (0-FEW) Urine Mucus Mod /LPF Test 05/29/18 18:10 05/30/18 04:20 Hemoglobin 13.4 g/dL (13.0-17.5) 13.4 g/dL (13.0-17.5) White Blood Count 11.1 x10^3/uL (4.0-11.0) Red Blood Count 4.59 x10^6/uL (4.30-5.70) Hematocrit 40.2 % (39.0-53.0) Mean Corpuscular Volume 88 fL (79-100) Mean Corpuscular Hemoglobin 29 pg (25-35) Mean Corpuscular Hemoglobin Concent 33 g/dL (31-37) Red Cell Distribution Width 14.3 % (11.5-14.5) Platelet Count 155 x10^3/uL (140-400) Neutrophils (%) (Auto) 77 % (31-73) Lymphocytes (%) (Auto) 15 % (24-48) Monocytes (%) (Auto) 7 % (0-9) Eosinophils (%) (Auto) 0 % (0-3) Basophils (%) (Auto) 0 % (0-3) Neutrophils # (Auto) 8.6 x10^3uL (1.8-7.7) Lymphocytes # (Auto) 1.7 x10^3/uL (1.0-4.8) Monocytes # (Auto) 0.7 x10^3/uL (0.0-1.1) Eosinophils # (Auto) 0.0 x10^3/uL (0.0-0.7) Basophils # (Auto) 0.0 x10^3/uL (0.0-0.2) Sodium Level 141 mmol/L (136-145) Potassium Level 3.4 mmol/L (3.5-5.1) Chloride Level 106 mmol/L (98-107) Carbon Dioxide Level 28 mmol/L (21-32) Anion Gap 7 (6-14) Blood Urea Nitrogen 15 mg/dL (8-26) Creatinine 1.2 mg/dL (0.7-1.3) Estimated GFR (Cockcroft-Gault) 62.2 Glucose Level 126 mg/dL (70-99) Calcium Level 8.2 mg/dL (8.5-10.1) Allergies: Coded Allergies: No Known Drug Allergies (Unverified , 12/11/13) Medications: Current Medications Medications (Trade) Dose Ordered Sig/Lonnie Route PRN Reason Start Time Stop Time Status Last Admin Dose Admin Ondansetron HCl (Zofran) 4 mg 1X ONCE IV 05/29/18 11:00 05/29/18 11:02 DC 05/29/18 11:27 Pantoprazole Sodium (PROTONIX VIAL for IV PUSH) 80 mg 1X ONCE IVP 05/29/18 11:00 05/29/18 11:02 DC 05/29/18 11:34 Sodium Chloride 1,000 ml @ 1,000 mls/hr 1X ONCE IV 05/29/18 11:00 05/29/18 11:59 DC 05/29/18 11:22 Fentanyl Citrate (Fentanyl 2ml Vial) 50 mcg 1X ONCE IV 05/29/18 11:30 05/29/18 11:31 DC 05/29/18 11:31 Iohexol (Omnipaque 300 Mg/ml) 75 ml 1X ONCE IV 05/29/18 11:45 05/29/18 11:46 DC 05/29/18 12:04 Pantoprazole Sodium 80 mg/ Sodium Chloride 100 ml @ 10 mls/hr 1X ONCE IV 05/29/18 12:00 05/29/18 21:59 DC 05/29/18 12:29 Ceftriaxone Sodium (Rocephin) 1 gm 1X ONCE IVP 05/29/18 13:15 05/29/18 13:18 DC 05/29/18 13:50 Azithromycin 250 ml @ 250 mls/hr 1X ONCE IV 05/29/18 13:15 05/29/18 14:14 DC 05/29/18 13:52 Sodium Chloride 1,000 ml @ 1,000 mls/hr 1X ONCE IV 05/29/18 13:45 05/29/18 14:44 DC 05/29/18 14:04 Fentanyl Citrate (Fentanyl 2ml Vial) 50 mcg PRN Q2HRS PRN IV PAIN 05/29/18 14:00 05/30/18 08:33 Potassium Chloride/Dextrose/ Sod Cl 1,000 ml @ 75 mls/hr [id number] IV 05/29/18 15:45 05/30/18 05:04 Albuterol/ Ipratropium (Duoneb) 3 ml 1X ONCE NEB 05/29/18 15:45 05/29/18 15:46 DC 05/29/18 17:06 Albuterol/ Ipratropium (Duoneb) 3 ml RTQID NEB 05/29/18 20:00 05/30/18 08:23 Pantoprazole Sodium 80 mg/ Sodium Chloride 100 ml @ 10 mls/hr Q10H IV 05/29/18 23:30 05/29/18 23:24 Imaging: Imaging: C/A/P CT IMPRESSION: 1. Nodular opacities of the left lower lobe likely pneumonia. Follow-up CT imaging in 3 months is advised to document this resolves to exclude the possibility of neoplasia per the Fleischner guidelines. 2. Small sliding hiatal hernia of the upper stomach. Abnormal fluid distention and abnormal wall thickening throughout the thoracic esophagus, likely representing esophagitis. Esophageal malignancy is a secondary consideration but considered less likely given the diffuse long segmental nature of involvement. 3. Large fatty left inguinal hernia. Abd/Scrotum US IMPRESSION: 1. Large echogenicity measuring 7.6 cm identified within the right and left testis probably large fat-containing left-sided inguinal hernia seen on CT scan. 2. Slight heterogeneous appearance of the right testis, nonspecific. Close interval follow-up examination can be considered. PE: GEN: NAD HEENT: Atraumatic, PERRL LUNGS: CTAB HEART: RRR ABD: quiet, S/ND, epigastric tenderness EXTREMITY: No edema SKIN: No rashes, no jaundice NEURO/PSYCH: A & O 3 A/P: A/P: N/v, epigastric pain, ?hematemesis Abnormal CT - pneumonia, hiatal hernia, possible esophagitis CRC screen - none reported Mentally challenged -- Limited history. He denies, but seems possible h/o GERD on Dexilant. Remain NPO on IV PPI, plan for EGD this afternoon. CARLOS MEHTA May 30, 2018 09:41
[2018-05-30] MEDS: LACTOBACILLUS RHAMNOSUS GG 1 CAPSULE. PO SCH ×2 (10:00→20:53)
[2018-05-30] MEDS ORDERED: ACETAMINOPHEN 650 MG SUPP.RECT. PR PRN (12:30)
[2018-05-30] MEDS ORDERED: ACETAMINOPHEN 325 MG TABLET. PO PRN (12:30)
[2018-05-30] MEDS ORDERED: PIP/TAZO PER PHARMACY MC PRN (14:15)
--- NOTE | 2018-05-30 14:37 | RAD ---
Single view of the chest. 05/30/2018 1:22 PM Indication: cough Comparison: Chest radiograph April 20, 2008 Findings: Probable retrocardiac infiltrate seen on the frontal view. This may be augmented by rotation and patient's known pectus deformity. There is trace left pleural effusion or atelectasis. No pneumothorax is identified. Heart size is normal. No acute osseous abnormality is identified. IMPRESSION: 1.Probable retrocardiac infiltrate concerning for pneumonia. Two-view chest radiographs may be helpful for follow-up evaluation. 2.Trace left pleural effusion or atelectasis. Electronically signed by: Christopher Platt MD (05/30/2018 2:33 PM) [id number]
--- NOTE | 2018-05-30 14:41 | CONS ---
DATE OF CONSULTATION: ATTENDING PHYSICIAN: Dr. Calzada. REASON FOR CONSULTATION: Pneumonia. HISTORY OF PRESENT ILLNESS: The patient is a 58-year-old male who has history of Marfan syndrome with pectus excavatum. He has no significant history of tobacco use. He presented to the hospital after he vomited 3 times and hematemesis. He said he started coughing up. He was a bit tachycardic this morning as well. He underwent CT of the chest, abdomen and pelvis. I have reviewed CT chest. It shows left lower lobe pneumonia. The patient also has some abnormality in the esophagus, for which GI has been following. He is currently getting IV fluids. No headaches. No further vomiting since in the hospital. No diarrhea. No focal weakness. No skin rash. PAST MEDICAL HISTORY: History of Marfan syndrome, history of pectus excavatum, hypertension, hyperlipidemia, GERD. PAST SURGICAL HISTORY: Right hip replacement. ALLERGIES: None. MEDICATIONS: Reviewed as listed in the MRAD including azithromycin and Rocephin. REVIEW OF SYSTEMS: Twelve-point system obtained. Pertinent positives discussed in my history of present illness, otherwise noncontributory. All systems that were negative were reviewed as well. SOCIAL HISTORY: Nonsmoker. FAMILY HISTORY: Noncontributory to lungs. PHYSICAL EXAMINATION: VITAL SIGNS: T-max of 99.5, pulse is in the 120s. Pulse ox 94% on room air. HEENT: Sclerae nonicteric. NECK: Supple. LUNGS: With few crackles, left base. CARDIOVASCULAR: Regular rate and rhythm. ABDOMEN: Soft. EXTREMITIES: With bilateral trace pitting edema. LABORATORY DATA: Reviewed. White cell count 11.1, hemoglobin 13.3, BUN and creatinine 15 and 1.2. IMPRESSION: 1. Likely aspiration pneumonia, suspecting Gram-negative pneumonia from episodes of vomiting/hematemesis. 2. Abnormal CT chest consistent with pneumonia. The tiny nodular opacities are suggesting an infectious etiology. 3. History of Marfan syndrome with pectus excavatum. 4. Abnormal esophagus. We are awaiting GI recommendation and EGD. 5. Tachycardia, likely related to dehydration and aspiration. RECOMMENDATIONS: 1. Continue with IV fluids to see an improvement in heart rate. 2. We will follow chest x-ray in few days. 3. Discontinue Rocephin and change to Zosyn to broaden the Gram-negative coverage. 4. P.r.n. bronchodilators. 5. PPI. 6. Follow GI recommendations. 7. Discussed with RN. We will follow along with you. TIMO ONEAL MD DR: CRUZ/maicol JOB#: [id number] / [id number]
[2018-05-30] MEDS ORDERED: LIDOCAINE 2% VISCOUS 15 ML SOLUTION. SWSW PRN (14:45)
[2018-05-30] MEDS: PIPERACILLIN/TAZOBACTAM 3.375 GM in IV NORMAL SALINE 50ML 50 ML IV SCH ×2 (15:19→20:58)
[2018-05-30] MEDS: AZITHROMYCIN 250 MG in IV NORMAL SALINE 250ML 250 ML IV SCH (15:20)
[2018-05-30] MEDS ORDERED: cefTRIAXone IV Push 1 GM VIAL. IVP SCH (16:00)
--- NOTE | 2018-05-30 19:29 | PDOC2 ---
UROLOGY CONSULT Date of Consult Date of Consult DATE: 05/30/18 TIME: 19:23 Reason for Consult Reason for Consult: scrotal swelling Source Source: Chart review, Patient History of Present Illness Reason for Visit: 58 yo M admitted with GI bleed and pneumonia who was noted to have fullness of his left hemiscrotum. CT A/P identifies a large fat containing left inguinal hernia. Scrotal US with relatively normal appearing testes and what is likely the hernia. Patient does not communicate well, but denies pain and does not know how long his scrotum has been that way. Past Medical History Cardiovascular: No pertinent hx Pulmonary: No pertinent hx CENTRAL NERVOUS SYSTEM: Other GI: No pertinent hx Heme/Onc: No pertinent hx Musculoskeletal: Other Infectious disease: No pertinent hx Renal/: No pertinent hx Endocrine: No pertinent hx Social History No ALCOHOL: none Drugs: None Lives: with Family Domestic Violence: Neg Current Medications Current Medications Current Medications Acetaminophen (Tylenol Supp) 650 mg PRN Q6HRS PRN [place] MILD PAIN / TEMP Last administered on 05/30/18at 12:29; Start 05/30/18 at 12:30 Acetaminophen (Tylenol) 650 mg PRN Q6HRS PRN PO FEVER > 100.5'F; Start at 12:30 Albuterol/ Ipratropium (Duoneb) 3 ml RTQID NEB Last administered on 05/30/18at 16:36; Start 05/29/18 at 20:00 Azithromycin 250 mg/Sodium Chloride 250 ml @ 250 mls/hr Q24H IV Last administered on 05/30/18at 15:20; Start 05/30/18 at 15:45 Ceftriaxone Sodium (Rocephin) 1 gm Q24H IVP ; Start 05/30/18 at 16:00; Stop at 16:00; Status DC Fentanyl Citrate (Fentanyl 2ml Vial) 25 mcg PRN Q5MIN PRN IV MILD PAIN; Start 05/31/18 at 07:00; Stop 06/01/18 at 06:59 Fentanyl Citrate (Fentanyl 2ml Vial) 50 mcg PRN Q5MIN PRN IV MODERATE TO SEVERE PAIN; Start 05/31/18 at 07:00; Stop 06/01/18 at 06:59 Hydromorphone HCl (Dilaudid) 0.5 mg PRN Q10MIN PRN IV SEV PAIN, Second choice; Start 05/31/18 at 07:00; Stop 06/01/18 at 06:59 Influenza Virus Vaccine (Afluria Trivalent [id number] Syringe) 0.5 ml ONCE ONCE VAX IM ; Start 05/30/18 at 15:00; Stop 05/30/18 at 15:01; Status DC Lactobacillus Rhamnosus (Culturelle) 1 cap BID PO ; Start 05/30/18 at 10:00 Lidocaine HCl (Viscous Lidocaine) 15 ml PRN Q4HRS PRN SWSW PAIN; Start at 14:45 Lidocaine HCl (Xylocaine-Mpf 1% 2ml Vial) 2 ml PRN 1X PRN ID IV START; Start 05/31/18 at 07:00; Stop 06/01/18 at 06:59 Morphine Sulfate (Morphine Sulfate) 1 mg PRN Q10MIN PRN IV SEVERE PAIN; Start 05/31/18 at 07:00; Stop 06/01/18 at 06:59 Pantoprazole Sodium 80 mg/ Sodium Chloride 100 ml @ 10 mls/hr Q10H IV Last administered on 05/30/18at 09:30; Start 05/29/18 at 23:30 Piperacillin Sod/ Tazobactam Sod (Zosyn Per Pharmacy) 1 each PRN DAILY PRN [facility] SEE COMMENTS; Start 05/30/18 at 14:15 Piperacillin Sod/ Tazobactam Sod 3.375 gm/Sodium Chloride 50 ml @ 100 mls/hr Q6HRS IV Last administered on 05/30/18at 15:19; Start 05/30/18 at 14:30 Prochlorperazine Edisylate (Compazine) 5 mg PACU PRN PRN IV NAUSEA, MRX1; Start 05/31/18 at 07:00; Stop 06/01/18 at 06:59 Ringer's Solution 1,000 ml @ 30 mls/hr Q24H IV ; Start 05/31/18 at 07:00; Stop 05/31/18 at 18:59 Allergies Allergies: Coded Allergies: No Known Drug Allergies (Unverified , 12/11/13) ROS Review Of Systems: Unable to obtain as patient does not communicate well Physical Exam Physical Exam: General:no acute distress Eyes: eyes full range of motion ENT: moist oral mucosa Neck: Trachea midline Respiratory: unlabored breathing, not using accessory muscles Cardiovascular: Normal temperature Abdomen: nontender, nondistended Skin: no rashes or skin lesions on visualized skin Psych: Alert : circ phallus with orthotopic meatus, right testis in normal, left inguinal [id number], cannot appreciate the left testis Vitals VITALS Vital Signs Date Time Temp Pulse Resp B/P (MAP) Pulse Ox O2 Delivery O2 Flow Rate FiO2 05/30/18 17:30 18 Room Air 05/30/18 16:00 99.0 122 136/67 (90) 94 99.0 Labs Labs Laboratory Tests Test 05/29/18 11:05 05/29/18 11:10 05/29/18 11:12 05/29/18 12:47 White Blood Count 8.1 x10^3/uL (4.0-11.0) Red Blood Count 4.92 x10^6/uL (4.30-5.70) Hemoglobin 14.6 g/dL (13.0-17.5) Hematocrit 42.3 % (39.0-53.0) Mean Corpuscular Volume 86 fL (79-100) Mean Corpuscular Hemoglobin 30 pg (25-35) Mean Corpuscular Hemoglobin Concent 35 g/dL (31-37) Red Cell Distribution Width 13.9 % (11.5-14.5) Platelet Count 172 x10^3/uL (140-400) Neutrophils (%) (Auto) 89 % (31-73) Lymphocytes (%) (Auto) 6 % (24-48) Monocytes (%) (Auto) 5 % (0-9) Eosinophils (%) (Auto) 0 % (0-3) Basophils (%) (Auto) 0 % (0-3) Neutrophils # (Auto) 7.2 x10^3uL (1.8-7.7) Lymphocytes # (Auto) 0.5 x10^3/uL (1.0-4.8) Monocytes # (Auto) 0.4 x10^3/uL (0.0-1.1) Eosinophils # (Auto) 0.0 x10^3/uL (0.0-0.7) Basophils # (Auto) 0.0 x10^3/uL (0.0-0.2) Segmented Neutrophils % 65 % (35-66) Band Neutrophils % 25 % (0-9) Lymphocytes % 6 % (24-48) Monocytes % 3 % (0-10) Metamyelocytes % 1 % (0-0) Platelet Estimate Adequate (ADEQUATE) Prothrombin Time 14.1 SEC (11.7-14.0) Prothromb Time International Ratio 1.1 (0.8-1.1) Activated Partial Thromboplast Time 33 SEC (24-38) Sodium Level 140 mmol/L (136-145) Potassium Level 3.5 mmol/L (3.5-5.1) Chloride Level 103 mmol/L (98-107) Carbon Dioxide Level 29 mmol/L (21-32) Anion Gap 8 (6-14) Blood Urea Nitrogen 18 mg/dL (8-26) Creatinine 1.1 mg/dL (0.7-1.3) Estimated GFR (Cockcroft-Gault) 68.8 BUN/Creatinine Ratio 16 (6-20) Glucose Level 149 mg/dL (70-99) Lactic Acid Level 2.0 mmol/L (0.4-2.0) Calcium Level 9.0 mg/dL (8.5-10.1) Magnesium Level 1.6 mg/dL (1.8-2.4) Total Bilirubin 0.6 mg/dL (0.2-1.0) Aspartate Amino Transf (AST/SGOT) 17 U/L (15-37) Alanine Aminotransferase (ALT/SGPT) 29 U/L (16-63) Alkaline Phosphatase 105 U/L (46-116) Creatine Kinase 96 U/L (39-308) Creatine Kinase MB (Mass) < 0.5 ng/mL (0.0-3.6) Creatine Kinase MB Relative Index % (0-4) Troponin I Quantitative < 0.017 ng/mL (0.000-0.055) Total Protein 7.0 g/dL (6.4-8.2) Albumin 3.8 g/dL (3.4-5.0) Albumin/Globulin Ratio 1.2 (1.0-1.7) Lipase 117 U/L (73-393) Stool Occult Blood Positive (NEG) Glucose (Fingerstick) 142 mg/dL (70-99) Urine Collection Type U cath Urine Color Yellow Urine Clarity Clear Urine pH 6.5 Urine Specific [place] >=1.030 Urine Protein Negative mg/dL (NEG-TRACE) Urine Glucose (UA) Negative mg/dL (NEG) Urine Ketones (Stick) Trace mg/dL (NEG) Urine Blood Negative (NEG) Urine Nitrite Negative (NEG) Urine Bilirubin Negative (NEG) Urine Urobilinogen Dipstick 1.0 mg/dL (0.2 mg/dL) Urine Leukocyte Esterase Negative (NEG) Urine RBC 1-2 /HPF (0-2) Urine WBC 0 /HPF (0-4) Urine Bacteria 0 /HPF (0-FEW) Urine Mucus Mod /LPF Test 05/29/18 15:45 05/29/18 18:10 05/30/18 04:20 05/30/18 11:50 Nasal Screen MRSA (PCR) Negative (Negative) Hemoglobin 13.4 g/dL (13.0-17.5) 13.4 g/dL (13.0-17.5) 13.9 g/dL (13.0-17.5) White Blood Count 11.1 x10^3/uL (4.0-11.0) Red Blood Count 4.59 x10^6/uL (4.30-5.70) Hematocrit 40.2 % (39.0-53.0) Mean Corpuscular Volume 88 fL (79-100) Mean Corpuscular Hemoglobin 29 pg (25-35) Mean Corpuscular Hemoglobin Concent 33 g/dL (31-37) Red Cell Distribution Width 14.3 % (11.5-14.5) Platelet Count 155 x10^3/uL (140-400) Neutrophils (%) (Auto) 77 % (31-73) Lymphocytes (%) (Auto) 15 % (24-48) Monocytes (%) (Auto) 7 % (0-9) Eosinophils (%) (Auto) 0 % (0-3) Basophils (%) (Auto) 0 % (0-3) Neutrophils # (Auto) 8.6 x10^3uL (1.8-7.7) Lymphocytes # (Auto) 1.7 x10^3/uL (1.0-4.8) Monocytes # (Auto) 0.7 x10^3/uL (0.0-1.1) Eosinophils # (Auto) 0.0 x10^3/uL (0.0-0.7) Basophils # (Auto) 0.0 x10^3/uL (0.0-0.2) Sodium Level 141 mmol/L (136-145) Potassium Level 3.4 mmol/L (3.5-5.1) Chloride Level 106 mmol/L (98-107) Carbon Dioxide Level 28 mmol/L (21-32) Anion Gap 7 (6-14) Blood Urea Nitrogen 15 mg/dL (8-26) Creatinine 1.2 mg/dL (0.7-1.3) Estimated GFR (Cockcroft-Gault) 62.2 Glucose Level 126 mg/dL (70-99) Calcium Level 8.2 mg/dL (8.5-10.1) Laboratory Tests Test 05/30/18 04:20 05/30/18 11:50 White Blood Count 11.1 x10^3/uL (4.0-11.0) Red Blood Count 4.59 x10^6/uL (4.30-5.70) Hemoglobin 13.4 g/dL (13.0-17.5) 13.9 g/dL (13.0-17.5) Hematocrit 40.2 % (39.0-53.0) Mean Corpuscular Volume 88 fL (79-100) Mean Corpuscular Hemoglobin 29 pg (25-35) Mean Corpuscular Hemoglobin Concent 33 g/dL (31-37) Red Cell Distribution Width 14.3 % (11.5-14.5) Platelet Count 155 x10^3/uL (140-400) Neutrophils (%) (Auto) 77 % (31-73) Lymphocytes (%) (Auto) 15 % (24-48) Monocytes (%) (Auto) 7 % (0-9) Eosinophils (%) (Auto) 0 % (0-3) Basophils (%) (Auto) 0 % (0-3) Neutrophils # (Auto) 8.6 x10^3uL (1.8-7.7) Lymphocytes # (Auto) 1.7 x10^3/uL (1.0-4.8) Monocytes # (Auto) 0.7 x10^3/uL (0.0-1.1) Eosinophils # (Auto) 0.0 x10^3/uL (0.0-0.7) Basophils # (Auto) 0.0 x10^3/uL (0.0-0.2) Sodium Level 141 mmol/L (136-145) Potassium Level 3.4 mmol/L (3.5-5.1) Chloride Level 106 mmol/L (98-107) Carbon Dioxide Level 28 mmol/L (21-32) Anion Gap 7 (6-14) Blood Urea Nitrogen 15 mg/dL (8-26) Creatinine 1.2 mg/dL (0.7-1.3) Estimated GFR (Cockcroft-Gault) 62.2 Glucose Level 126 mg/dL (70-99) Calcium Level 8.2 mg/dL (8.5-10.1) Images Images CT and US reviewed Assessment/Plan Assessment/Plan 58 yo M with large fat containing left inguinal hernia. Otherwise, normal exam. Please consult general surgery or outpatient referral to discuss elective surgical repair. Will sign-off. Please call with questions. KYARA DE LEÓN MD May 30, 2018 19:29
[2018-05-31] VITALS (7 sets, daily range): BP systolic 120–138; BP diastolic 69–78
[2018-05-31] MEDS: PIPERACILLIN/TAZOBACTAM 3.375 GM in IV NORMAL SALINE 50ML 50 ML IV SCH ×5 (00:05→23:39)
[2018-05-31] MEDS: fentaNYL PF VIAL 100 MCG/2 ML VIAL IV PRN ×6 (00:06→23:49)
[2018-05-31] MEDS: PANTOPRAZOLE SODIUM IV DRIP 80 MG in IV NORMAL SALINE 100ML 100 ML IV SCH (05:30)
[2018-05-31] MEDS ORDERED: fentaNYL PF VIAL 100 MCG/2 ML VIAL IV PRN ×2 (07:00)
[2018-05-31] MEDS ORDERED: HYDROmorphone 2 MG/ML VIAL IV PRN (07:00)
[2018-05-31] MEDS ORDERED: IV RINGERS,LACTATED 1000ML 1,000 ML IV SCH (07:00)
[2018-05-31] MEDS ORDERED: PROCHLORPERAZINE 10 MG/2 ML VIAL. IV PRN (07:00)
[2018-05-31] MEDS ORDERED: MORPHINE SULFATE 2 MG/ML VIAL. IV PRN (07:00)
[2018-05-31] MEDS ORDERED: LIDOCAINE 1% PF 2 ML VIAL. ID PRN (07:00)
[2018-05-31] MEDS ORDERED: ONDANSETRON PF 4 MG/2 ML VIAL. ONE (07:32)
[2018-05-31 07:35] LABS: BASO % 0 % (0-3); EOS # 0.1 x10^3/uL (0.0-0.7); EOS % 1 % (0-3); HEMATOCRIT 35.6 % (39.0-53.0); HEMOGLOBIN 12.3 g/dL (13.0-17.5); LYMPH # 1.2 x10^3/uL (1.0-4.8); LYMPH % 13 % (24-48); MEAN CORPUSCULAR HEMOGLOBIN 30 pg (25-35); MEAN CORPUSCULAR HGB CONC 35 g/dL (31-37); MEAN CORPUSCULAR VOLUME 86 fL (79-100); MONO # 0.7 x10^3/uL (0.0-1.1); MONO % 8 % (0-9); NEUT # 6.8 x10^3uL (1.8-7.7); NEUT % 77 % (31-73); PLATELET COUNT 133 x10^3/uL (140-400); RED BLOOD COUNT 4.15 x10^6/uL (4.30-5.70); WHITE BLOOD COUNT 8.8 x10^3/uL (4.0-11.0)
[2018-05-31] MEDS: POTASSIUM CL 20MEQ D5-0.9%NACL 1,000 ML IV SCH ×2 (07:45→18:16)
[2018-05-31 07:48] LABS: CALCIUM 8.2 mg/dL (8.5-10.1); CREATININE 0.9 mg/dL (0.7-1.3); GFR 86.7; POTASSIUM 3.2 mmol/L (3.5-5.1)
[2018-05-31] MEDS: IPRATRPIUM/ALBUTEROL 0.5/2.5MG 3 ML NEBU. NEB SCH ×4 (08:13→19:52)
[2018-05-31] MEDS ORDERED: ONDANSETRON PF 4 MG/2 ML VIAL. IV PRN (08:15)
[2018-05-31] MEDS: LACTOBACILLUS RHAMNOSUS GG 1 CAPSULE. PO SCH ×2 (09:00→20:40)
--- NOTE | 2018-05-31 09:31 | RAD ---
CHEST PA LATERAL History: PNEUMONIA Comparison: AP chest, prior day. Findings: Pectus deformity and sternotomy wires redemonstrated. Cardiac size is normal. Linear interface with air medial along the lower right spine is due to air in the esophagus. There is left basilar airspace disease with air bronchograms. There is mild right basilar airspace disease. No pneumothorax. No pleural effusion. IMPRESSION: 1. Left basilar pneumonia is worse. 2. Mild right basilar airspace disease. Electronically signed by: Leno Mercado MD (05/31/2018 9:27 AM) [id number]
--- NOTE | 2018-05-31 09:53 | PDOC ---
PROGRESS NOTES Subjective Subjective fever yesterday, today better Objective Objective Vital Signs Date Time Temp Pulse Resp B/P (MAP) Pulse Ox O2 Delivery O2 Flow Rate FiO2 05/31/18 09:36 30 Room Air 05/31/18 08:13 95 05/31/18 08:00 98.9 95 123/70 (87) 98.9 Intake and Output 05/31/18 07:00 Intake Total 2675 ml Output Total 1300 ml Balance 1375 ml Intake Oral 350 ml IV Total 2325 ml Output Urine Total 1300 ml Physical Exam Abdomen: Normal bowel sounds, Soft Heart: Regular rate, Normal S1, Normal S2 Extremities: No clubbing General: Alert, Oriented X3 Lungs: Clear to auscultation MUSCULOSKELETAL: Other (pectus excavatun) Psych/Mental Status: Mood NL Skin: No breakdown COMMENT left testicular swelling Diagnosis Problem List Problems Medical Problems: (1) Bandemia Status: Acute (2) SIRS (systemic inflammatory response syndrome) Status: Acute (3) Swelling of left testicle Status: Acute Assessment Assessment Problems Medical Problems: (1) Bandemia Status: Acute (2) SIRS (systemic inflammatory response syndrome) Status: Acute (3) Swelling of left testicle Status: Acute FINAL IMPRESSION: 1. Upper gastrointestinal bleed. 2. Community-acquired pneumonia. 3. Possible esophagitis. 4. Marfan syndrome. 5. Pectus excavatum. 6. History of hip replacement. 7. Hypertension. 8. Hyperlipidemia. 9.Scrotal swelling lt side. PLAN: EGD today Hb remained stable ,13 EGD today iv antibiotics.changed to zosyn+zithromax Urology consult appreciated, inguinal hernia large lt side iv protonix. surgical consent At this time, was admit to hospital. Blood cultures, sputum culture, start on Zithromax and Rocephin, DuoNeb 4 times daily, n.p.o., IV fluids. GI consultation, probably needs EGD. Monitor hemoglobin q.6 hours, IV Protonix. SCD for DVT prevention, hold off on Lovenox. Plan Plan of Care Problems Medical Problems: (1) Bandemia Status: Acute (2) SIRS (systemic inflammatory response syndrome) Status: Acute (3) Swelling of left testicle Status: Acute Comment Review of Relevant I have reviewed the following items sy (where applicable) has been applied. Labs Laboratory Tests Test 05/30/18 11:50 05/31/18 06:55 Hemoglobin 13.9 g/dL (13.0-17.5) 12.3 g/dL (13.0-17.5) White Blood Count 8.8 x10^3/uL (4.0-11.0) Red Blood Count 4.15 x10^6/uL (4.30-5.70) Hematocrit 35.6 % (39.0-53.0) Mean Corpuscular Volume 86 fL (79-100) Mean Corpuscular Hemoglobin 30 pg (25-35) Mean Corpuscular Hemoglobin Concent 35 g/dL (31-37) Red Cell Distribution Width 14.0 % (11.5-14.5) Platelet Count 133 x10^3/uL (140-400) Neutrophils (%) (Auto) 77 % (31-73) Lymphocytes (%) (Auto) 13 % (24-48) Monocytes (%) (Auto) 8 % (0-9) Eosinophils (%) (Auto) 1 % (0-3) Basophils (%) (Auto) 0 % (0-3) Neutrophils # (Auto) 6.8 x10^3uL (1.8-7.7) Lymphocytes # (Auto) 1.2 x10^3/uL (1.0-4.8) Monocytes # (Auto) 0.7 x10^3/uL (0.0-1.1) Eosinophils # (Auto) 0.1 x10^3/uL (0.0-0.7) Basophils # (Auto) 0.0 x10^3/uL (0.0-0.2) Sodium Level 138 mmol/L (136-145) Potassium Level 3.2 mmol/L (3.5-5.1) Chloride Level 103 mmol/L (98-107) Carbon Dioxide Level 26 mmol/L (21-32) Anion Gap 9 (6-14) Blood Urea Nitrogen 8 mg/dL (8-26) Creatinine 0.9 mg/dL (0.7-1.3) Estimated GFR (Cockcroft-Gault) 86.7 Glucose Level 119 mg/dL (70-99) Calcium Level 8.2 mg/dL (8.5-10.1) Microbiology 05/29/18 Blood Culture - Preliminary, Resulted NO GROWTH AFTER 1 DAY Medications Current Medications Acetaminophen (Tylenol Supp) 650 mg PRN Q6HRS PRN [place] MILD PAIN / TEMP Last administered on 05/30/18at 12:29; Start 05/30/18 at 12:30 Acetaminophen (Tylenol) 650 mg PRN Q6HRS PRN PO FEVER > 100.5'F; Start at 12:30 Azithromycin 250 mg/Sodium Chloride 250 ml @ 250 mls/hr Q24H IV Last administered on 05/30/18at 15:20; Start 05/30/18 at 15:45 Ceftriaxone Sodium (Rocephin) 1 gm Q24H IVP ; Start 05/30/18 at 16:00; Stop at 16:00; Status DC Fentanyl Citrate (Fentanyl 2ml Vial) 25 mcg PRN Q5MIN PRN IV MILD PAIN; Start 05/31/18 at 07:00; Stop 06/01/18 at 06:59 Fentanyl Citrate (Fentanyl 2ml Vial) 50 mcg PRN Q5MIN PRN IV MODERATE TO SEVERE PAIN; Start 05/31/18 at 07:00; Stop 06/01/18 at 06:59 Hydromorphone HCl (Dilaudid) 0.5 mg PRN Q10MIN PRN IV SEV PAIN, Second choice; Start 05/31/18 at 07:00; Stop 06/01/18 at 06:59 Influenza Virus Vaccine (Afluria Trivalent [id number] Syringe) 0.5 ml ONCE ONCE VAX IM ; Start 05/30/18 at 15:00; Stop 05/30/18 at 15:01; Status DC Lactobacillus Rhamnosus (Culturelle) 1 cap BID PO Last administered on at 20:53; Start 05/30/18 at 10:00 Lidocaine HCl (Viscous Lidocaine) 15 ml PRN Q4HRS PRN SWSW PAIN; Start at 14:45 Lidocaine HCl (Xylocaine-Mpf 1% 2ml Vial) 2 ml PRN 1X PRN ID IV START; Start 05/31/18 at 07:00; Stop 06/01/18 at 06:59 Morphine Sulfate (Morphine Sulfate) 1 mg PRN Q10MIN PRN IV SEVERE PAIN; Start 05/31/18 at 07:00; Stop 12/12/18 at 06:59 Ondansetron HCl (Zofran) 4 mg PRN Q6HRS PRN IV NAUSEA/VOMITING; Start at 08:15 Ondansetron HCl (Zofran) 4 mg STK-MED ONCE .ROUTE ; Start 05/31/18 at 07:32; Stop 05/31/18 at 07:33; Status DC Piperacillin Sod/ Tazobactam Sod (Zosyn Per Pharmacy) 1 each PRN DAILY PRN [facility] SEE COMMENTS; Start 05/30/18 at 14:15 Piperacillin Sod/ Tazobactam Sod 3.375 gm/Sodium Chloride 50 ml @ 100 mls/hr Q6HRS IV Last administered on 05/31/18at 05:28; Start 05/30/18 at 14:30 Prochlorperazine Edisylate (Compazine) 5 mg PACU PRN PRN IV NAUSEA, MRX1; Start 05/31/18 at 07:00; Stop 06/01/18 at 06:59 Ringer's Solution 1,000 ml @ 30 mls/hr Q24H IV ; Start 05/31/18 at 07:00; Stop 05/31/18 at 18:59 Vitals/I & O Vital Sign - Last 24 Hours 05/30/18 05/30/18 05/30/18 05/30/18 12:00 12:30 13:00 16:00 Temp 99.5 100.6 99.0 99.5 100.6 99.0 Pulse 122 122 Resp 20 20 B/P (MAP) 136/67 (90) 136/67 (90) Pulse Ox 94 94 O2 Delivery Room Air Room Air Room Air 05/30/18 05/30/18 05/30/18 05/30/18 16:36 17:30 19:45 20:20 Resp 18 Pulse Ox 97 O2 Delivery Room Air Room Air Room Air Room Air 05/30/18 05/30/18 05/31/18 05/31/18 20:20 20:52 00:00 00:06 Temp 98.2 98.2 Pulse 116 108 Resp 22 16 24 18 B/P (MAP) 140/67 (91) 120/69 (86) Pulse Ox 96 97 95 96 O2 Delivery Room Air Room Air Room Air Room Air 05/31/18 05/31/18 05/31/1818 03:13 03:30 03:55 07:36 Temp 98.9 98.9 Pulse 101 Resp 20 20 18 B/P (MAP) 127/77 (94) Pulse Ox 95 95 95 O2 Delivery Room Air Room Air Room Air 05/31/18 05/31/18 05/31/18 05/31/18 08:00 08:06 08:13 09:36 Temp 98.9 98.9 Pulse 95 Resp 20 18 30 B/P (MAP) 123/70 (87) Pulse Ox 95 95 O2 Delivery Room Air Nasal Cannula Room Air Room Air Intake and Output 05/30/18 05/30/18 05/31/18 15:00 23:00 07:00 Intake Total 0 ml 2475 ml 200 ml Output Total 450 ml 200 ml 650 ml Balance -450 ml 2275 ml -450 ml Nutrition Consultation Dietary Evaluation: Recommendations by RD: Increase Calorie Intake Comments: REC advance diet as able to goal diet cardiac, will add oral supplements as appropriate pending PO intake of meals Expected Outcomes/Goals: Diet advancement Malnutrition Findings: Food and Nutrition Intake (Sev: <50% est energy req 5days Weight Status: Appropriate IHSAN PLUMMER MD May 31, 2018 09:53
[2018-05-31] MEDS ORDERED: POTASSIUM CHLORIDE 20 MEQ in IV NORMAL SALINE 250ML 250 ML IV ONE (10:00)
--- NOTE | 2018-05-31 10:23 | PDOC ---
PULMONARY PROGRESS NOTES Subjective no soa Vitals Vital Signs Date Time Temp Pulse Resp B/P (MAP) Pulse Ox O2 Delivery O2 Flow Rate FiO2 05/31/18 10:06 16 Room Air 05/31/18 08:13 95 05/31/18 08:00 98.9 95 123/70 (87) 98.9 General: Alert, Oriented X4, No acute distress Lungs: Clear Cardiovascular: S1, S2 Abdomen: Soft, Non-tender Neuro Exam: Alert Extremities: No Edema Skin: Warm Labs Laboratory Tests Test 05/29/18 11:05 05/29/18 11:10 05/29/18 11:12 05/29/18 12:47 White Blood Count 8.1 x10^3/uL (4.0-11.0) Red Blood Count 4.92 x10^6/uL (4.30-5.70) Hemoglobin 14.6 g/dL (13.0-17.5) Hematocrit 42.3 % (39.0-53.0) Mean Corpuscular Volume 86 fL (79-100) Mean Corpuscular Hemoglobin 30 pg (25-35) Mean Corpuscular Hemoglobin Concent 35 g/dL (31-37) Red Cell Distribution Width 13.9 % (11.5-14.5) Platelet Count 172 x10^3/uL (140-400) Neutrophils (%) (Auto) 89 % (31-73) Lymphocytes (%) (Auto) 6 % (24-48) Monocytes (%) (Auto) 5 % (0-9) Eosinophils (%) (Auto) 0 % (0-3) Basophils (%) (Auto) 0 % (0-3) Neutrophils # (Auto) 7.2 x10^3uL (1.8-7.7) Lymphocytes # (Auto) 0.5 x10^3/uL (1.0-4.8) Monocytes # (Auto) 0.4 x10^3/uL (0.0-1.1) Eosinophils # (Auto) 0.0 x10^3/uL (0.0-0.7) Basophils # (Auto) 0.0 x10^3/uL (0.0-0.2) Segmented Neutrophils % 65 % (35-66) Band Neutrophils % 25 % (0-9) Lymphocytes % 6 % (24-48) Monocytes % 3 % (0-10) Metamyelocytes % 1 % (0-0) Platelet Estimate Adequate (ADEQUATE) Prothrombin Time 14.1 SEC (11.7-14.0) Prothromb Time International Ratio 1.1 (0.8-1.1) Activated Partial Thromboplast Time 33 SEC (24-38) Sodium Level 140 mmol/L (136-145) Potassium Level 3.5 mmol/L (3.5-5.1) Chloride Level 103 mmol/L (98-107) Carbon Dioxide Level 29 mmol/L (21-32) Anion Gap 8 (6-14) Blood Urea Nitrogen 18 mg/dL (8-26) Creatinine 1.1 mg/dL (0.7-1.3) Estimated GFR (Cockcroft-Gault) 68.8 BUN/Creatinine Ratio 16 (6-20) Glucose Level 149 mg/dL (70-99) Lactic Acid Level 2.0 mmol/L (0.4-2.0) Calcium Level 9.0 mg/dL (8.5-10.1) Magnesium Level 1.6 mg/dL (1.8-2.4) Total Bilirubin 0.6 mg/dL (0.2-1.0) Aspartate Amino Transf (AST/SGOT) 17 U/L (15-37) Alanine Aminotransferase (ALT/SGPT) 29 U/L (16-63) Alkaline Phosphatase 105 U/L (46-116) Creatine Kinase 96 U/L (39-308) Creatine Kinase MB (Mass) < 0.5 ng/mL (0.0-3.6) Creatine Kinase MB Relative Index % (0-4) Troponin I Quantitative < 0.017 ng/mL (0.000-0.055) Total Protein 7.0 g/dL (6.4-8.2) Albumin 3.8 g/dL (3.4-5.0) Albumin/Globulin Ratio 1.2 (1.0-1.7) Lipase 117 U/L (73-393) Stool Occult Blood Positive (NEG) Glucose (Fingerstick) 142 mg/dL (70-99) Urine Collection Type U cath Urine Color Yellow Urine Clarity Clear Urine pH 6.5 Urine Specific [place] >=1.030 Urine Protein Negative mg/dL (NEG-TRACE) Urine Glucose (UA) Negative mg/dL (NEG) Urine Ketones (Stick) Trace mg/dL (NEG) Urine Blood Negative (NEG) Urine Nitrite Negative (NEG) Urine Bilirubin Negative (NEG) Urine Urobilinogen Dipstick 1.0 mg/dL (0.2 mg/dL) Urine Leukocyte Esterase Negative (NEG) Urine RBC 1-2 /HPF (0-2) Urine WBC 0 /HPF (0-4) Urine Bacteria 0 /HPF (0-FEW) Urine Mucus Mod /LPF Test 05/29/18 15:45 05/29/18 18:10 05/30/18 04:20 05/30/18 11:50 Nasal Screen MRSA (PCR) Negative (Negative) Hemoglobin 13.4 g/dL (13.0-17.5) 13.4 g/dL (13.0-17.5) 13.9 g/dL (13.0-17.5) White Blood Count 11.1 x10^3/uL (4.0-11.0) Red Blood Count 4.59 x10^6/uL (4.30-5.70) Hematocrit 40.2 % (39.0-53.0) Mean Corpuscular Volume 88 fL (79-100) Mean Corpuscular Hemoglobin 29 pg (25-35) Mean Corpuscular Hemoglobin Concent 33 g/dL (31-37) Red Cell Distribution Width 14.3 % (11.5-14.5) Platelet Count 155 x10^3/uL (140-400) Neutrophils (%) (Auto) 77 % (31-73) Lymphocytes (%) (Auto) 15 % (24-48) Monocytes (%) (Auto) 7 % (0-9) Eosinophils (%) (Auto) 0 % (0-3) Basophils (%) (Auto) 0 % (0-3) Neutrophils # (Auto) 8.6 x10^3uL (1.8-7.7) Lymphocytes # (Auto) 1.7 x10^3/uL (1.0-4.8) Monocytes # (Auto) 0.7 x10^3/uL (0.0-1.1) Eosinophils # (Auto) 0.0 x10^3/uL (0.0-0.7) Basophils # (Auto) 0.0 x10^3/uL (0.0-0.2) Sodium Level 141 mmol/L (136-145) Potassium Level 3.4 mmol/L (3.5-5.1) Chloride Level 106 mmol/L (98-107) Carbon Dioxide Level 28 mmol/L (21-32) Anion Gap 7 (6-14) Blood Urea Nitrogen 15 mg/dL (8-26) Creatinine 1.2 mg/dL (0.7-1.3) Estimated GFR (Cockcroft-Gault) 62.2 Glucose Level 126 mg/dL (70-99) Calcium Level 8.2 mg/dL (8.5-10.1) Test 05/31/18 06:55 White Blood Count 8.8 x10^3/uL (4.0-11.0) Red Blood Count 4.15 x10^6/uL (4.30-5.70) Hemoglobin 12.3 g/dL (13.0-17.5) Hematocrit 35.6 % (39.0-53.0) Mean Corpuscular Volume 86 fL (79-100) Mean Corpuscular Hemoglobin 30 pg (25-35) Mean Corpuscular Hemoglobin Concent 35 g/dL (31-37) Red Cell Distribution Width 14.0 % (11.5-14.5) Platelet Count 133 x10^3/uL (140-400) Neutrophils (%) (Auto) 77 % (31-73) Lymphocytes (%) (Auto) 13 % (24-48) Monocytes (%) (Auto) 8 % (0-9) Eosinophils (%) (Auto) 1 % (0-3) Basophils (%) (Auto) 0 % (0-3) Neutrophils # (Auto) 6.8 x10^3uL (1.8-7.7) Lymphocytes # (Auto) 1.2 x10^3/uL (1.0-4.8) Monocytes # (Auto) 0.7 x10^3/uL (0.0-1.1) Eosinophils # (Auto) 0.1 x10^3/uL (0.0-0.7) Basophils # (Auto) 0.0 x10^3/uL (0.0-0.2) Sodium Level 138 mmol/L (136-145) Potassium Level 3.2 mmol/L (3.5-5.1) Chloride Level 103 mmol/L (98-107) Carbon Dioxide Level 26 mmol/L (21-32) Anion Gap 9 (6-14) Blood Urea Nitrogen 8 mg/dL (8-26) Creatinine 0.9 mg/dL (0.7-1.3) Estimated GFR (Cockcroft-Gault) 86.7 Glucose Level 119 mg/dL (70-99) Calcium Level 8.2 mg/dL (8.5-10.1) Laboratory Tests Test 05/30/18 11:50 05/31/18 06:55 Hemoglobin 13.9 g/dL (13.0-17.5) 12.3 g/dL (13.0-17.5) White Blood Count 8.8 x10^3/uL (4.0-11.0) Red Blood Count 4.15 x10^6/uL (4.30-5.70) Hematocrit 35.6 % (39.0-53.0) Mean Corpuscular Volume 86 fL (79-100) Mean Corpuscular Hemoglobin 30 pg (25-35) Mean Corpuscular Hemoglobin Concent 35 g/dL (31-37) Red Cell Distribution Width 14.0 % (11.5-14.5) Platelet Count 133 x10^3/uL (140-400) Neutrophils (%) (Auto) 77 % (31-73) Lymphocytes (%) (Auto) 13 % (24-48) Monocytes (%) (Auto) 8 % (0-9) Eosinophils (%) (Auto) 1 % (0-3) Basophils (%) (Auto) 0 % (0-3) Neutrophils # (Auto) 6.8 x10^3uL (1.8-7.7) Lymphocytes # (Auto) 1.2 x10^3/uL (1.0-4.8) Monocytes # (Auto) 0.7 x10^3/uL (0.0-1.1) Eosinophils # (Auto) 0.1 x10^3/uL (0.0-0.7) Basophils # (Auto) 0.0 x10^3/uL (0.0-0.2) Sodium Level 138 mmol/L (136-145) Potassium Level 3.2 mmol/L (3.5-5.1) Chloride Level 103 mmol/L (98-107) Carbon Dioxide Level 26 mmol/L (21-32) Anion Gap 9 (6-14) Blood Urea Nitrogen 8 mg/dL (8-26) Creatinine 0.9 mg/dL (0.7-1.3) Estimated GFR (Cockcroft-Gault) 86.7 Glucose Level 119 mg/dL (70-99) Calcium Level 8.2 mg/dL (8.5-10.1) Medications Active Scripts Medications Dose Route/Sig Max Daily Dose Days Date Category Dose Instructions Tylenol (Acetaminophen) 325 Mg Tablet 325 Mg PO PRN Q4HRS PRN 05/29/18 Reported Voltaren (Diclofenac Sodium) 100 Gm Gel..gram. 1 Gm TP QID 05/29/18 Reported Triamcinolone Acetonide 0.1% Oint (Triamcinolone Acetonide) 15 Gm Oint...g. 1 Leslee TP BID 05/29/18 Reported MIX WITH EUCERIN DIRECTED BY PHYSICIAN Florinda Pulido Tablet (Sennosides/Docusate Sodium) 1 Each Tablet 2 Each PO DAILY 05/29/18 Reported Genteal Tears 0.1%-0.2%-0.3% (Dextran/Hypromellose/Glycerin) 15 Ml Drops 15 Ml OP TID 05/29/18 Reported Dexilant (Dexlansoprazole) 60 Mg Cap.mp 1 Cap PO DAILY 05/29/18 Reported Simvastatin 10 Mg Tablet 1 Tab PO QHS 05/29/18 Reported Polyethylene Glycol 3350 17 Gm Powd.pack 17 Gm PO PRN 12/13/13 Reported Thera-M Tablet (Multivits,Ca,Minerals/Iron/Fa) 1 Each Tablet 1 Each PO DAILY 12/13/13 Reported Docusate Sodium 100 Mg Capsule 100 Mg PO BID PRN 12/13/13 Reported Toprol Xl (Metoprolol Succinate) 50 Mg Tab.er.24h 50 Mg PO DAILY 12/11/13 Reported Impression . 1. Likely aspiration pneumonia, suspecting Gram-negative pneumonia from episodes of vomiting/hematemesis. 2. Abnormal CT chest consistent with pneumonia. The tiny nodular opacities are suggesting an infectious etiology. 3. History of Marfan syndrome with pectus excavatum. 4. Abnormal esophagus. We are awaiting GI recommendation and EGD. 5. Tachycardia, likely related to dehydration and aspiration. improved 6. fever 102, ON gram neg coverage, add vanc Plan . 1. PRN IV fluids 2. We will follow chest x-ray in few days. 3. Zosyn / add vanc 4. P.r.n. bronchodilators. 5. PPI. 6. Follow GI recommendations. 7. Discussed with RN. 8. EGD today TIMO ONEAL MD May 31, 2018 10:23
[2018-05-31] MEDS ORDERED: VANCOMYCIN 1.75 GM in IV NORMAL SALINE 500ML BAG 500 ML IV ONE (11:00)
--- NOTE | 2018-05-31 11:31 | RAD ---
AP view of the abdomen Clinical indications: Abdominal distention. Nausea. FINDINGS: No obstructive bowel pattern is evident. There is mild air-filled dilatation of the colon measuring up to 6.5 cm. No significant fecal retention is evident. Bilateral hip prostheses are seen. IMPRESSION: Mild colonic dilatation. No obstructive bowel pattern. Electronically signed by: Tomy Ramsey MD (05/31/2018 11:28 AM) [facility]
[2018-05-31] MEDS ORDERED: PROPOFOL 20 ML IV ONE (12:53)
--- NOTE | 2018-05-31 13:06 | PDOC2 ---
CONSULT Date of Consult Date of Consult DATE: 05/31/18 TIME: 12:56 Reason for Consult Reason for Consult: L inguinal hernia History of Present Illness Reason for Visit: The patient is a 58 year old male admitted for shortness of breath, vomiting, currently receiving treatment for pneumonia. He was found on exam and on CT to have a large left inguinal hernia containing fat. The patient has a history of Marfan's syndrome and cognitive delay. His sister is present and is not aware of the duration of the hernia. Past Medical History Cardiovascular: No pertinent hx Pulmonary: No pertinent hx CENTRAL NERVOUS SYSTEM: Other GI: No pertinent hx Heme/Onc: No pertinent hx Musculoskeletal: Other Infectious disease: No pertinent hx Renal/: No pertinent hx Endocrine: No pertinent hx Social History No ALCOHOL: none Drugs: None Lives: with Family Domestic Violence: Neg Current Problem List Problem List Problems Medical Problems: (1) Bandemia Status: Acute (2) SIRS (systemic inflammatory response syndrome) Status: Acute (3) Swelling of left testicle Status: Acute Current Medications Current Medications Current Medications Ondansetron HCl (Zofran) 4 mg 1X ONCE IV Last administered on 05/29/18at 11:27 ; Start 05/29/18 at 11:00; Stop 05/29/18 at 11:02; Status DC Pantoprazole Sodium (PROTONIX VIAL for IV PUSH) 80 mg 1X ONCE IVP Last administered on 05/29/18at 11:34; Start 05/29/18 at 11:00; Stop 05/29/18 at 11:02 ; Status DC Sodium Chloride 1,000 ml @ 1,000 mls/hr 1X ONCE IV Last administered on at 11:22; Start 05/29/18 at 11:00; Stop 05/29/18 at 11:59; Status DC Fentanyl Citrate (Fentanyl 2ml Vial) 50 mcg 1X ONCE IV Last administered on at 11:31; Start 05/29/18 at 11:30; Stop 05/29/18 at 11:31; Status DC Iohexol (Omnipaque 300 Mg/ml) 75 ml 1X ONCE IV Last administered on 05/29/18at 12:04; Start 05/29/18 at 11:45; Stop 05/29/18 at 11:46; Status DC Pantoprazole Sodium 80 mg/ Sodium Chloride 100 ml @ 10 mls/hr 1X ONCE IV Last administered on 05/29/18at 12:29; Start 05/29/18 at 12:00; Stop 05/29/18 at 21:59; Status DC Ceftriaxone Sodium (Rocephin) 1 gm 1X ONCE IVP Last administered on 05/29/18at 13:50; Start 05/29/18 at 13:15; Stop 05/29/18 at 13:18; Status DC Azithromycin 250 ml @ 250 mls/hr 1X ONCE IV Last administered on 05/29/18at 13 :52; Start 05/29/18 at 13:15; Stop 05/29/18 at 14:14; Status DC Sodium Chloride 1,000 ml @ 1,000 mls/hr 1X ONCE IV Last administered on at 14:04; Start 05/29/18 at 13:45; Stop 05/29/18 at 14:44; Status DC Ondansetron HCl (Zofran) 4 mg PRN Q8HRS PRN IV NAUSEA/VOMITING; Start 05/29/18 at 14:00; Stop 05/30/18 at 13:59; Status DC Fentanyl Citrate (Fentanyl 2ml Vial) 50 mcg PRN Q2HRS PRN IV PAIN Last administered on 05/31/18at 12:12; Start 05/29/18 at 14:00 Potassium Chloride/Dextrose/ Sod Cl 1,000 ml @ 100 mls/hr Q10H IV Last administered on 05/31/18at 07:45; Start 05/29/18 at 15:45 Azithromycin 250 mg/Sodium Chloride 250 ml @ 250 mls/hr Q24H IV Last administered on 05/30/18at 15:20; Start 05/30/18 at 15:45 Ceftriaxone Sodium (Rocephin) 1 gm Q24H IVP ; Start 05/30/18 at 16:00; Stop at 16:00; Status DC Albuterol/ Ipratropium (Duoneb) 3 ml 1X ONCE NEB Last administered on at 17:06; Start 05/29/18 at 15:45; Stop 05/29/18 at 15:46; Status DC Albuterol/ Ipratropium (Duoneb) 3 ml RTQID NEB Last administered on 05/31/18at 12:13; Start 05/29/18 at 20:00 Info (FLU VACCINE SCREEN per RX) 1 each 1X ONCE MC Last administered on at 16:30; Start 05/29/18 at 16:30; Stop 05/29/18 at 16:31; Status DC Pantoprazole Sodium 80 mg/ Sodium Chloride 100 ml @ 10 mls/hr Q10H IV Last administered on 05/31/18at 05:30; Start 05/29/18 at 23:30; Stop 06/01/18 at 23: 29 Lactobacillus Rhamnosus (Culturelle) 1 cap BID PO Last administered on at 20:53; Start 05/30/18 at 10:00 Influenza Virus Vaccine (Afluria Trivalent [id number] Syringe) 0.5 ml ONCE ONCE VAX IM ; Start 05/30/18 at 15:00; Stop 05/30/18 at 15:01; Status DC Acetaminophen (Tylenol Supp) 650 mg PRN Q6HRS PRN ME MILD PAIN / TEMP Last administered on 05/30/18at 12:29; Start 05/30/18 at 12:30 Acetaminophen (Tylenol) 650 mg PRN Q6HRS PRN PO FEVER > 100.5'F; Start at 12:30 Piperacillin Sod/ Tazobactam Sod (Zosyn Per Pharmacy) 1 each PRN DAILY PRN MC SEE COMMENTS; Start 05/30/18 at 14:15 Piperacillin Sod/ Tazobactam Sod 3.375 gm/Sodium Chloride 50 ml @ 100 mls/hr Q6HRS IV Last administered on 05/31/18at 05:28; Start 05/30/18 at 14:30 Fentanyl Citrate (Fentanyl 2ml Vial) 25 mcg PRN Q5MIN PRN IV MILD PAIN; Start 05/31/18 at 07:00; Stop 06/01/18 at 06:59 Fentanyl Citrate (Fentanyl 2ml Vial) 50 mcg PRN Q5MIN PRN IV MODERATE TO SEVERE PAIN; Start 05/31/18 at 07:00; Stop 06/01/18 at 06:59 Morphine Sulfate (Morphine Sulfate) 1 mg PRN Q10MIN PRN IV SEVERE PAIN; Start 05/31/18 at 07:00; Stop 06/01/18 at 06:59 Ringer's Solution 1,000 ml @ 30 mls/hr Q24H IV Last administered on at 12:43; Start 05/31/18 at 07:00; Stop 05/31/18 at 18:59 Lidocaine HCl (Xylocaine-Mpf 1% 2ml Vial) 2 ml PRN 1X PRN ID IV START; Start 05/31/18 at 07:00; Stop 06/01/18 at 06:59 Hydromorphone HCl (Dilaudid) 0.5 mg PRN Q10MIN PRN IV SEV PAIN, Second choice; Start 05/31/18 at 07:00; Stop 06/01/18 at 06:59 Prochlorperazine Edisylate (Compazine) 5 mg PACU PRN PRN IV NAUSEA, MRX1; Start 05/31/18 at 07:00; Stop 06/01/18 at 06:59 Lidocaine HCl (Viscous Lidocaine) 15 ml PRN Q4HRS PRN SWSW PAIN; Start at 14:45 Ondansetron HCl (Zofran) 4 mg STK-MED ONCE .ROUTE ; Start 05/31/18 at 07:32; Stop 05/31/18 at 07:33; Status DC Ondansetron HCl (Zofran) 4 mg PRN Q6HRS PRN IV NAUSEA/VOMITING Last administered on 05/31/18at 10:56; Start 05/31/18 at 08:15 Potassium Chloride 20 meq/ Sodium Chloride 260 ml @ 130 mls/hr 1X ONCE IV ; Start 05/31/18 at 10:00; Stop 05/31/18 at 11:59; Status DC Vancomycin HCl (Vanco Per Pharmacy) 1 each PRN DAILY PRN MC SEE COMMENTS; Start 05/31/18 at 10:30 Vancomycin HCl 1.75 gm/Sodium Chloride 500 ml @ 250 mls/hr 1X ONCE IV ; Start 05/31/18 at 11:00; Stop 05/31/18 at 12:59 Propofol 40 ml @ As Directed STK-MED ONCE IV ; Start 05/31/18 at 12:53; Stop 05/31/18 at 12:54; Status DC Active Scripts Active Reported Tylenol (Acetaminophen) 325 Mg Tablet 325 Mg PO PRN Q4HRS PRN Voltaren (Diclofenac Sodium) 100 Gm Gel..gram. 1 Gm TP QID Triamcinolone Acetonide 0.1% Oint (Triamcinolone Acetonide) 15 Gm Oint...g. 1 Leslee TP BID MIX WITH EUCERIN DIRECTED BY PHYSICIAN Florinda Pulido Tablet (Sennosides/Docusate Sodium) 1 Each Tablet 2 Each PO DAILY Genteal Tears 0.1%-0.2%-0.3% (Dextran/Hypromellose/Glycerin) 15 Ml Drops 15 Ml OP TID Dexilant (Dexlansoprazole) 60 Mg Flaco. 1 Cap PO DAILY Simvastatin 10 Mg Tablet 1 Tab PO QHS Polyethylene Glycol 3350 17 Gm Powd.pack 17 Gm PO PRN Thera-M Tablet (Multivits,Ca,Minerals/Iron/Fa) 1 Each Tablet 1 Each PO DAILY Docusate Sodium 100 Mg Capsule 100 Mg PO BID PRN Toprol Xl (Metoprolol Succinate) 50 Mg Tab.er.24h 50 Mg PO DAILY Allergies Allergies: Coded Allergies: No Known Drug Allergies (Unverified , 05/31/18) ROS Review of System pt is unable to communicate Physical Exam General: Alert HEENT: Atraumatic Heart: Regular rate Abdomen: Soft (reports tenderness with palpation; sizeable left inguinal hernia with extension to scrotum, soft, not fully reducible) Skin: No rashes, No breakdown MUSCULOSKELETAL: No deformity Vitals VITALS Vital Signs Date Time Temp Pulse Resp B/P (MAP) Pulse Ox O2 Delivery O2 Flow Rate FiO2 05/31/18 12:37 98 110 18 95 98.0 05/31/18 12:37 Room Air 05/31/18 08:00 123/70 (87) Labs Labs Laboratory Tests Test 05/29/18 15:45 05/29/18 18:10 05/30/18 04:20 05/30/18 11:50 Nasal Screen MRSA (PCR) Negative (Negative) Hemoglobin 13.4 g/dL (13.0-17.5) 13.4 g/dL (13.0-17.5) 13.9 g/dL (13.0-17.5) White Blood Count 11.1 x10^3/uL (4.0-11.0) Red Blood Count 4.59 x10^6/uL (4.30-5.70) Hematocrit 40.2 % (39.0-53.0) Mean Corpuscular Volume 88 fL (79-100) Mean Corpuscular Hemoglobin 29 pg (25-35) Mean Corpuscular Hemoglobin Concent 33 g/dL (31-37) Red Cell Distribution Width 14.3 % (11.5-14.5) Platelet Count 155 x10^3/uL (140-400) Neutrophils (%) (Auto) 77 % (31-73) Lymphocytes (%) (Auto) 15 % (24-48) Monocytes (%) (Auto) 7 % (0-9) Eosinophils (%) (Auto) 0 % (0-3) Basophils (%) (Auto) 0 % (0-3) Neutrophils # (Auto) 8.6 x10^3uL (1.8-7.7) Lymphocytes # (Auto) 1.7 x10^3/uL (1.0-4.8) Monocytes # (Auto) 0.7 x10^3/uL (0.0-1.1) Eosinophils # (Auto) 0.0 x10^3/uL (0.0-0.7) Basophils # (Auto) 0.0 x10^3/uL (0.0-0.2) Sodium Level 141 mmol/L (136-145) Potassium Level 3.4 mmol/L (3.5-5.1) Chloride Level 106 mmol/L (98-107) Carbon Dioxide Level 28 mmol/L (21-32) Anion Gap 7 (6-14) Blood Urea Nitrogen 15 mg/dL (8-26) Creatinine 1.2 mg/dL (0.7-1.3) Estimated GFR (Cockcroft-Gault) 62.2 Glucose Level 126 mg/dL (70-99) Calcium Level 8.2 mg/dL (8.5-10.1) Test 05/31/18 06:55 White Blood Count 8.8 x10^3/uL (4.0-11.0) Red Blood Count 4.15 x10^6/uL (4.30-5.70) Hemoglobin 12.3 g/dL (13.0-17.5) Hematocrit 35.6 % (39.0-53.0) Mean Corpuscular Volume 86 fL (79-100) Mean Corpuscular Hemoglobin 30 pg (25-35) Mean Corpuscular Hemoglobin Concent 35 g/dL (31-37) Red Cell Distribution Width 14.0 % (11.5-14.5) Platelet Count 133 x10^3/uL (140-400) Neutrophils (%) (Auto) 77 % (31-73) Lymphocytes (%) (Auto) 13 % (24-48) Monocytes (%) (Auto) 8 % (0-9) Eosinophils (%) (Auto) 1 % (0-3) Basophils (%) (Auto) 0 % (0-3) Neutrophils # (Auto) 6.8 x10^3uL (1.8-7.7) Lymphocytes # (Auto) 1.2 x10^3/uL (1.0-4.8) Monocytes # (Auto) 0.7 x10^3/uL (0.0-1.1) Eosinophils # (Auto) 0.1 x10^3/uL (0.0-0.7) Basophils # (Auto) 0.0 x10^3/uL (0.0-0.2) Sodium Level 138 mmol/L (136-145) Potassium Level 3.2 mmol/L (3.5-5.1) Chloride Level 103 mmol/L (98-107) Carbon Dioxide Level 26 mmol/L (21-32) Anion Gap 9 (6-14) Blood Urea Nitrogen 8 mg/dL (8-26) Creatinine 0.9 mg/dL (0.7-1.3) Estimated GFR (Cockcroft-Gault) 86.7 Glucose Level 119 mg/dL (70-99) Calcium Level 8.2 mg/dL (8.5-10.1) Laboratory Tests Test 05/31/18 06:55 White Blood Count 8.8 x10^3/uL (4.0-11.0) Red Blood Count 4.15 x10^6/uL (4.30-5.70) Hemoglobin 12.3 g/dL (13.0-17.5) Hematocrit 35.6 % (39.0-53.0) Mean Corpuscular Volume 86 fL (79-100) Mean Corpuscular Hemoglobin 30 pg (25-35) Mean Corpuscular Hemoglobin Concent 35 g/dL (31-37) Red Cell Distribution Width 14.0 % (11.5-14.5) Platelet Count 133 x10^3/uL (140-400) Neutrophils (%) (Auto) 77 % (31-73) Lymphocytes (%) (Auto) 13 % (24-48) Monocytes (%) (Auto) 8 % (0-9) Eosinophils (%) (Auto) 1 % (0-3) Basophils (%) (Auto) 0 % (0-3) Neutrophils # (Auto) 6.8 x10^3uL (1.8-7.7) Lymphocytes # (Auto) 1.2 x10^3/uL (1.0-4.8) Monocytes # (Auto) 0.7 x10^3/uL (0.0-1.1) Eosinophils # (Auto) 0.1 x10^3/uL (0.0-0.7) Basophils # (Auto) 0.0 x10^3/uL (0.0-0.2) Sodium Level 138 mmol/L (136-145) Potassium Level 3.2 mmol/L (3.5-5.1) Chloride Level 103 mmol/L (98-107) Carbon Dioxide Level 26 mmol/L (21-32) Anion Gap 9 (6-14) Blood Urea Nitrogen 8 mg/dL (8-26) Creatinine 0.9 mg/dL (0.7-1.3) Estimated GFR (Cockcroft-Gault) 86.7 Glucose Level 119 mg/dL (70-99) Calcium Level 8.2 mg/dL (8.5-10.1) Assessment/Plan Assessment/Plan 58 year old male with several medical problems, admitted with SOB, vomiting. He is undergoing a GI evaluation with endoscopy planned later today. In addition he is receiving treatment for suspected pneumonia. Given the size of the hernia it appears to be a somewhat chronic problem. The hernia contains fat only without bowel involvement. In general can offer a repair of the hernia , but would want to correct current acute problems. Also given the need to use mesh would not want a superimposed existing infectious process. Recommend addressing current medical problems and can refer to me as outpatient when condition improves to schedule inguinal hernia surgery. Thanks for the consult! PHILIPPE WEBB MD May 31, 2018 13:06
--- NOTE | 2018-05-31 13:08 | PDOC4 ---
PROCEDURE Procedure EGD Indication: N, V, hematemesis, abnormal esophagus on CTA. Meds: per anesthesia Findings: E--GEJ at 44ccm. ? healing M-W tear lesser curve. Some irregularity of SQ junction. Otherwise normal. G--Normal D--Normal to second portion. Melvina. well. IMP: Healing M-W tear Mild GERD REC: OK to feed. Continue PPI. Stop lidocaine po. Thanks. ANNY WITT MD May 31, 2018 13:08
[2018-05-31] MEDS: VANCOMYCIN PER PHARMACY MC PRN (14:56)
[2018-05-31] MEDS: AZITHROMYCIN 250 MG in IV NORMAL SALINE 250ML 250 ML IV SCH (15:45)
[2018-05-31] MEDS: VANCOMYCIN 1 GM in IV NORMAL SALINE 250ML 250 ML IV SCH (22:18)
[2018-06-01 02:36] VITALS: BP 122/77
[2018-06-01] MEDS: POTASSIUM CL 20MEQ D5-0.9%NACL 1,000 ML IV SCH ×3 (04:16→23:19)
[2018-06-01] MEDS: PIPERACILLIN/TAZOBACTAM 3.375 GM in IV NORMAL SALINE 50ML 50 ML IV SCH ×3 (05:50→18:20)
[2018-06-01 06:47] VITALS: BP 115/70
[2018-06-01] MEDS: VANCOMYCIN 1 GM in IV NORMAL SALINE 250ML 250 ML IV SCH ×3 (07:11→23:20)
[2018-06-01] MEDS: fentaNYL PF VIAL 100 MCG/2 ML VIAL IV PRN ×3 (08:00→20:25)
[2018-06-01] MEDS: LACTOBACILLUS RHAMNOSUS GG 1 CAPSULE. PO SCH ×2 (08:00→20:24)
[2018-06-01] MEDS: PANTOPRAZOLE 40 MG TABLET.DR. PO SCH (08:00)
[2018-06-01] MEDS: IPRATRPIUM/ALBUTEROL 0.5/2.5MG 3 ML NEBU. NEB SCH ×3 (08:25→19:32)
[2018-06-01 08:54] LABS: BASO % 0 % (0-3); EOS # 0.2 x10^3/uL (0.0-0.7); EOS % 4 % (0-3); HEMATOCRIT 32.8 % (39.0-53.0); HEMOGLOBIN 11.3 g/dL (13.0-17.5); LYMPH # 0.8 x10^3/uL (1.0-4.8); LYMPH % 14 % (24-48); MEAN CORPUSCULAR HEMOGLOBIN 29 pg (25-35); MEAN CORPUSCULAR HGB CONC 34 g/dL (31-37); MEAN CORPUSCULAR VOLUME 85 fL (79-100); MONO # 0.5 x10^3/uL (0.0-1.1); MONO % 9 % (0-9); NEUT # 4.1 x10^3uL (1.8-7.7); NEUT % 72 % (31-73); PLATELET COUNT 137 x10^3/uL (140-400); RED BLOOD COUNT 3.87 x10^6/uL (4.30-5.70); WHITE BLOOD COUNT 5.7 x10^3/uL (4.0-11.0)
[2018-06-01 09:08] LABS: CALCIUM 8.1 mg/dL (8.5-10.1); CREATININE 0.8 mg/dL (0.7-1.3); GFR 99.3
[2018-06-01 09:21] LABS: POTASSIUM 2.9 mmol/L (3.5-5.1)
[2018-06-01] MEDS ORDERED: POTASSIUM CHLORIDE 20 MEQ TABLET.ER. PO ONE ×2 (09:45→12:00)
--- NOTE | 2018-06-01 09:49 | PDOC ---
PROGRESS NOTES Subjective Subjective pt moved to [facility] floor 05/31/18 Objective Objective Vital Signs Date Time Temp Pulse Resp B/P (MAP) Pulse Ox O2 Delivery O2 Flow Rate FiO2 06/01/18 08:32 Room Air 06/01/18 08:27 93 06/01/18 06:47 99.0 91 18 115/70 (85) 99.0 Intake and Output 06/01/18 07:00 Intake Total 2240 ml Output Total 2200 ml Balance 40 ml Intake Oral 50 ml IV Total 2190 ml Output Urine Total 2200 ml Physical Exam Abdomen: Soft (reports tenderness with palpation; sizeable left inguinal hernia with extension to scrotum, soft, not fully reducible) Heart: Regular rate Extremities: No clubbing General: Alert HEENT: Atraumatic Lungs: Clear to auscultation MUSCULOSKELETAL: No deformity Psych/Mental Status: Mood NL Skin: No rashes, No breakdown COMMENT left testicular swelling Diagnosis Problem List Problems Medical Problems: (1) Bandemia Status: Acute (2) SIRS (systemic inflammatory response syndrome) Status: Acute (3) Swelling of left testicle Status: Acute Assessment Assessment Problems Medical Problems: (1) Bandemia Status: Acute (2) SIRS (systemic inflammatory response syndrome) Status: Acute (3) Swelling of left testicle Status: Acute FINAL IMPRESSION: 1. Upper gastrointestinal bleed. 2. Community-acquired pneumonia. 3. Possible esophagitis. 4. Marfan syndrome. 5. Pectus excavatum. 6. History of hip replacement. 7. Hypertension. 8. Hyperlipidemia. 9. Scrotal swelling lt side. 10.Ac bladder retention PLAN: clear liquid diet EGD showed healing MW tear Hb remained stable ,12 pot 2.9, replace pot KUB showed ileus iv antibiotics.changed to vanco+zosyn+zithromax for pneumonia Urology consult appreciated, inguinal hernia large lt side iv protonix. surgical consent appreciated. robison placed for bladder retention 600 cc, not able to void At this time, was admit to hospital. Blood cultures, sputum culture, start on Zithromax and Rocephin, DuoNeb 4 times daily, n.p.o., IV fluids. GI consultation, probably needs EGD. Monitor hemoglobin q.6 hours, IV Protonix. SCD for DVT prevention, hold off on Lovenox. Plan Plan of Care Problems Medical Problems: (1) Bandemia Status: Acute (2) SIRS (systemic inflammatory response syndrome) Status: Acute (3) Swelling of left testicle Status: Acute Comment Review of Relevant I have reviewed the following items sy (where applicable) has been applied. Labs Laboratory Tests Test 06/01/18 07:40 White Blood Count 5.7 x10^3/uL (4.0-11.0) Red Blood Count 3.87 x10^6/uL (4.30-5.70) Hemoglobin 11.3 g/dL (13.0-17.5) Hematocrit 32.8 % (39.0-53.0) Mean Corpuscular Volume 85 fL (79-100) Mean Corpuscular Hemoglobin 29 pg (25-35) Mean Corpuscular Hemoglobin Concent 34 g/dL (31-37) Red Cell Distribution Width 14.0 % (11.5-14.5) Platelet Count 137 x10^3/uL (140-400) Neutrophils (%) (Auto) 72 % (31-73) Lymphocytes (%) (Auto) 14 % (24-48) Monocytes (%) (Auto) 9 % (0-9) Eosinophils (%) (Auto) 4 % (0-3) Basophils (%) (Auto) 0 % (0-3) Neutrophils # (Auto) 4.1 x10^3uL (1.8-7.7) Lymphocytes # (Auto) 0.8 x10^3/uL (1.0-4.8) Monocytes # (Auto) 0.5 x10^3/uL (0.0-1.1) Eosinophils # (Auto) 0.2 x10^3/uL (0.0-0.7) Basophils # (Auto) 0.0 x10^3/uL (0.0-0.2) Sodium Level 141 mmol/L (136-145) Potassium Level 2.9 mmol/L (3.5-5.1) Chloride Level 104 mmol/L (98-107) Carbon Dioxide Level 28 mmol/L (21-32) Anion Gap 9 (6-14) Blood Urea Nitrogen 7 mg/dL (8-26) Creatinine 0.8 mg/dL (0.7-1.3) Estimated GFR (Cockcroft-Gault) 99.3 Glucose Level 104 mg/dL (70-99) Calcium Level 8.1 mg/dL (8.5-10.1) Microbiology 05/29/18 Blood Culture - Preliminary, Resulted NO GROWTH AFTER 2 DAYS Medications Current Medications Pantoprazole Sodium (Protonix) 40 mg DAILYAC PO Last administered on at 08:00; Start 06/01/18 at 07:30 Potassium Chloride 20 meq/ Sodium Chloride 260 ml @ 130 mls/hr 1X ONCE IV Last administered on 05/31/18at 14:24; Start 05/31/18 at 10:00; Stop 05/31/18 at 11:59; Status DC Propofol 20 ml @ As Directed STK-MED ONCE IV ; Start 05/31/18 at 12:53; Stop 05/31/18 at 12:54; Status DC Vancomycin HCl (Vanco Per Pharmacy) 1 each PRN DAILY PRN MC SEE COMMENTS Last administered on 05/31/18at 14:56; Start 05/31/18 at 10:30 Vancomycin HCl (Vancomycin Trough Level) 1 each 1X ONCE MC ; Start 06/01/18 at 13:30; Stop 06/01/18 at 13:31 Vancomycin HCl 1.75 gm/Sodium Chloride 500 ml @ 250 mls/hr 1X ONCE IV Last administered on 05/31/18at 14:18; Start 05/31/18 at 11:00; Stop 05/31/18 at 12 :59; Status DC Vancomycin HCl 1 gm/Sodium Chloride 250 ml @ 250 mls/hr Q8H IV Last administered on 06/01/18at 07:11; Start 05/31/18 at 22:00 Vitals/I & O Vital Sign - Last 24 Hours 05/31/18 05/31/18 05/31/18 05/31/18 12:00 12:12 12:13 12:37 Temp 98.9 98.9 Pulse 96 Resp 20 18 B/P (MAP) 130/70 (90) Pulse Ox 95 O2 Delivery Room Air Room Air Room Air Room Air 05/31/18 05/31/18 05/31/18 05/31/18 12:37 12:42 13:05 13:20 Temp 98 98.9 98.0 98.9 Pulse 110 100 104 Resp 18 18 20 20 B/P (MAP) 96/55 100/59 Pulse Ox 95 94 O2 Delivery Nasal Cannula Room Air 05/31/18 05/31/18 05/31/18 05/31/18 16:00 16:31 19:52 20:00 Temp 98.9 98.9 Pulse 96 Resp 20 B/P (MAP) 132/70 (90) Pulse Ox 95 96 O2 Delivery Room Air Room Air Room Air Room Air 05/31/18 05/31/18 06/01/18 06/01/18 20:00 23:15 02:36 06:47 Temp 98.5 98.2 97.8 99.0 98.5 98.2 97.8 99.0 Pulse 98 102 90 91 Resp 20 18 B/P (MAP) 138/71 (93) 133/78 (96) 122/77 (92) 115/70 (85) Pulse Ox 95 96 95 95 O2 Delivery Room Air Room Air Room Air Room Air 06/01/18 06/01/18 06/01/18 06/01/18 08:00 08:00 08:27 08:32 Pulse Ox 93 O2 Delivery Room Air Room Air Room Air Room Air Intake and Output 05/31/18 05/31/18 06/01/18 15:00 23:00 07:00 Intake Total 400 ml 1540 ml 300 ml Output Total 500 ml 1250 ml 450 ml Balance -100 ml 290 ml -150 ml Nutrition Consultation Dietary Evaluation: Recommendations by RD: Increase Calorie Intake Comments: REC advance diet as able to goal diet cardiac, will add oral supplements as appropriate pending PO intake of meals Expected Outcomes/Goals: Diet advancement Malnutrition Findings: Food and Nutrition Intake (Sev: <50% est energy req 5days Weight Status: Appropriate IHSAN PLUMMER MD Jun 01, 2018 09:49
--- NOTE | 2018-06-01 10:22 | PDOC ---
PULMONARY PROGRESS NOTES Subjective no soa Vitals Vital Signs Date Time Temp Pulse Resp B/P (MAP) Pulse Ox O2 Delivery O2 Flow Rate FiO2 06/01/18 08:32 Room Air 06/01/18 08:27 93 06/01/18 06:47 99.0 91 18 115/70 (85) 99.0 General: Alert, Oriented X4, No acute distress Lungs: Clear Cardiovascular: S1, S2 Abdomen: Soft, Non-tender Neuro Exam: Alert Extremities: No Edema Skin: Warm Labs Laboratory Tests Test 05/30/18 11:50 05/31/18 06:55 06/01/18 07:40 Hemoglobin 13.9 g/dL (13.0-17.5) 12.3 g/dL (13.0-17.5) 11.3 g/dL (13.0-17.5) White Blood Count 8.8 x10^3/uL (4.0-11.0) 5.7 x10^3/uL (4.0-11.0) Red Blood Count 4.15 x10^6/uL (4.30-5.70) 3.87 x10^6/uL (4.30-5.70) Hematocrit 35.6 % (39.0-53.0) 32.8 % (39.0-53.0) Mean Corpuscular Volume 86 fL (79-100) 85 fL (79-100) Mean Corpuscular Hemoglobin 30 pg (25-35) 29 pg (25-35) Mean Corpuscular Hemoglobin Concent 35 g/dL (31-37) 34 g/dL (31-37) Red Cell Distribution Width 14.0 % (11.5-14.5) 14.0 % (11.5-14.5) Platelet Count 133 x10^3/uL (140-400) 137 x10^3/uL (140-400) Neutrophils (%) (Auto) 77 % (31-73) 72 % (31-73) Lymphocytes (%) (Auto) 13 % (24-48) 14 % (24-48) Monocytes (%) (Auto) 8 % (0-9) 9 % (0-9) Eosinophils (%) (Auto) 1 % (0-3) 4 % (0-3) Basophils (%) (Auto) 0 % (0-3) 0 % (0-3) Neutrophils # (Auto) 6.8 x10^3uL (1.8-7.7) 4.1 x10^3uL (1.8-7.7) Lymphocytes # (Auto) 1.2 x10^3/uL (1.0-4.8) 0.8 x10^3/uL (1.0-4.8) Monocytes # (Auto) 0.7 x10^3/uL (0.0-1.1) 0.5 x10^3/uL (0.0-1.1) Eosinophils # (Auto) 0.1 x10^3/uL (0.0-0.7) 0.2 x10^3/uL (0.0-0.7) Basophils # (Auto) 0.0 x10^3/uL (0.0-0.2) 0.0 x10^3/uL (0.0-0.2) Sodium Level 138 mmol/L (136-145) 141 mmol/L (136-145) Potassium Level 3.2 mmol/L (3.5-5.1) 2.9 mmol/L (3.5-5.1) Chloride Level 103 mmol/L (98-107) 104 mmol/L (98-107) Carbon Dioxide Level 26 mmol/L (21-32) 28 mmol/L (21-32) Anion Gap 9 (6-14) 9 (6-14) Blood Urea Nitrogen 8 mg/dL (8-26) 7 mg/dL (8-26) Creatinine 0.9 mg/dL (0.7-1.3) 0.8 mg/dL (0.7-1.3) Estimated GFR (Cockcroft-Gault) 86.7 99.3 Glucose Level 119 mg/dL (70-99) 104 mg/dL (70-99) Calcium Level 8.2 mg/dL (8.5-10.1) 8.1 mg/dL (8.5-10.1) Laboratory Tests Test 06/01/18 07:40 White Blood Count 5.7 x10^3/uL (4.0-11.0) Red Blood Count 3.87 x10^6/uL (4.30-5.70) Hemoglobin 11.3 g/dL (13.0-17.5) Hematocrit 32.8 % (39.0-53.0) Mean Corpuscular Volume 85 fL (79-100) Mean Corpuscular Hemoglobin 29 pg (25-35) Mean Corpuscular Hemoglobin Concent 34 g/dL (31-37) Red Cell Distribution Width 14.0 % (11.5-14.5) Platelet Count 137 x10^3/uL (140-400) Neutrophils (%) (Auto) 72 % (31-73) Lymphocytes (%) (Auto) 14 % (24-48) Monocytes (%) (Auto) 9 % (0-9) Eosinophils (%) (Auto) 4 % (0-3) Basophils (%) (Auto) 0 % (0-3) Neutrophils # (Auto) 4.1 x10^3uL (1.8-7.7) Lymphocytes # (Auto) 0.8 x10^3/uL (1.0-4.8) Monocytes # (Auto) 0.5 x10^3/uL (0.0-1.1) Eosinophils # (Auto) 0.2 x10^3/uL (0.0-0.7) Basophils # (Auto) 0.0 x10^3/uL (0.0-0.2) Sodium Level 141 mmol/L (136-145) Potassium Level 2.9 mmol/L (3.5-5.1) Chloride Level 104 mmol/L (98-107) Carbon Dioxide Level 28 mmol/L (21-32) Anion Gap 9 (6-14) Blood Urea Nitrogen 7 mg/dL (8-26) Creatinine 0.8 mg/dL (0.7-1.3) Estimated GFR (Cockcroft-Gault) 99.3 Glucose Level 104 mg/dL (70-99) Calcium Level 8.1 mg/dL (8.5-10.1) Medications Active Scripts Medications Dose Route/Sig Max Daily Dose Days Date Category Dose Instructions Tylenol (Acetaminophen) 325 Mg Tablet 325 Mg PO PRN Q4HRS PRN 05/29/18 Reported Voltaren (Diclofenac Sodium) 100 Gm Gel..gram. 1 Gm TP QID 05/29/18 Reported Triamcinolone Acetonide 0.1% Oint (Triamcinolone Acetonide) 15 Gm Oint...g. 1 Leslee TP BID 05/29/18 Reported MIX WITH EUCERIN DIRECTED BY PHYSICIAN Florinda Pulido Tablet (Sennosides/Docusate Sodium) 1 Each Tablet 2 Each PO DAILY 05/29/18 Reported Genteal Tears 0.1%-0.2%-0.3% (Dextran/Hypromellose/Glycerin) 15 Ml Drops 15 Ml OP TID 05/29/18 Reported Dexilant (Dexlansoprazole) 60 Mg Cap. 1 Cap PO DAILY 05/29/18 Reported Simvastatin 10 Mg Tablet 1 Tab PO QHS 05/29/18 Reported Polyethylene Glycol 3350 17 Gm Powd.pack 17 Gm PO PRN 12/13/13 Reported Thera-M Tablet (Multivits,Ca,Minerals/Iron/Fa) 1 Each Tablet 1 Each PO DAILY 12/13/13 Reported Docusate Sodium 100 Mg Capsule 100 Mg PO BID PRN 12/13/13 Reported Toprol Xl (Metoprolol Succinate) 50 Mg Tab.er.24h 50 Mg PO DAILY 12/11/13 Reported Comments CHEST PA LATERAL History: PNEUMONIA Comparison: AP chest, prior day. Findings: Pectus deformity and sternotomy wires redemonstrated. Cardiac size is normal. Linear interface with air medial along the lower right spine is due to air in the esophagus. There is left basilar airspace disease with air bronchograms. There is mild right basilar airspace disease. No pneumothorax. No pleural effusion. IMPRESSION: 1. Left basilar pneumonia is worse. 2. Mild right basilar airspace disease. Impression . 1. Aspiration pneumonia, suspecting Gram-negative pneumonia from episodes of vomiting/hematemesis. 2. Abnormal CT chest consistent with pneumonia. The tiny nodular opacities are suggesting an infectious etiology. 3. History of Marfan syndrome with pectus excavatum. 4. Abnormal esophagus. Follow GI recommendation . s/p EGD . ? healing M-W tear lesser curve. Some irregularity of SQ junction 5. Tachycardia, likely related to dehydration and aspiration. improved 6. fever , improved, on BS abx Plan . 1. on BS Abx 2. We will follow chest x-ray in few days. 3. Zosyn / vanc/ Zithromax 4. P.r.n. bronchodilators. 5. PPI. 6. Follow GI recommendations. 7. Discussed with RN./ TIMO CARUSO MD Jun 01, 2018 10:22
[2018-06-01 11:00] VITALS: BP 118/71
--- NOTE | 2018-06-01 11:02 | PDOC ---
Subjective: Subjective: No n/v, eating "a little," might hurt to swallow. Abd pain when coughing - not when eating. No BM. Objective: Objective: Tolerating diet per RN. Vital Signs: Vital Signs Date Time Temp Pulse Resp B/P (MAP) Pulse Ox O2 Delivery O2 Flow Rate FiO2 06/01/18 08:32 Room Air 06/01/18 08:27 93 06/01/18 06:47 99.0 91 18 115/70 (85) 99.0 Labs: Laboratory Tests Test 06/01/18 07:40 White Blood Count 5.7 x10^3/uL Red Blood Count 3.87 x10^6/uL Hemoglobin 11.3 g/dL Hematocrit 32.8 % Mean Corpuscular Volume 85 fL Mean Corpuscular Hemoglobin 29 pg Mean Corpuscular Hemoglobin Concent 34 g/dL Red Cell Distribution Width 14.0 % Platelet Count 137 x10^3/uL Neutrophils (%) (Auto) 72 % Lymphocytes (%) (Auto) 14 % Monocytes (%) (Auto) 9 % Eosinophils (%) (Auto) 4 % Basophils (%) (Auto) 0 % Neutrophils # (Auto) 4.1 x10^3uL Lymphocytes # (Auto) 0.8 x10^3/uL Monocytes # (Auto) 0.5 x10^3/uL Eosinophils # (Auto) 0.2 x10^3/uL Basophils # (Auto) 0.0 x10^3/uL Sodium Level 141 mmol/L Potassium Level 2.9 mmol/L Chloride Level 104 mmol/L Carbon Dioxide Level 28 mmol/L Anion Gap 9 Blood Urea Nitrogen 7 mg/dL Creatinine 0.8 mg/dL Estimated GFR (Cockcroft-Gault) 99.3 Glucose Level 104 mg/dL Calcium Level 8.1 mg/dL Imaging: EGD 05/31 E--GEJ at 44ccm. ? healing M-W tear lesser curve. Some irregularity of SQ junction. Otherwise normal. G--Normal D--Normal to second portion. IMP: Healing M-W tear Mild GERD KUB 05/31 IMPRESSION: Mild colonic dilatation. No obstructive bowel pattern. PE: GEN: NAD, up to chair LUNGS:occasional dry cough HEART: RRR ABD: periumbilical soreness, BS+ NEURO/PSYCH: A & O 3 A/P: N/v, ?hematemesis - resolved, EGD as above Periumbilical pain - suspect MSK from coughing Pneumonia LIH -- Continue PPI. CARLOS MEHTA Jun 01, 2018 11:02
[2018-06-01] MEDS: POLYETHYLENE GLYCOL 3350 17 GM PACKET. PO SCH (12:19)
[2018-06-01] MEDS: VANCOMYCIN PER PHARMACY MC PRN ×2 (14:19→23:02)
[2018-06-01 15:00] VITALS: BP 129/83
[2018-06-01] MEDS: AZITHROMYCIN 250 MG in IV NORMAL SALINE 250ML 250 ML IV SCH (17:06)
[2018-06-01 19:00] VITALS: BP 120/78
[2018-06-01 21:56] LABS: VANC TR 15.6 mcg/mL (10.0-20.0)
[2018-06-01 23:00] VITALS: BP 121/66
[2018-06-02] MEDS: PIPERACILLIN/TAZOBACTAM 3.375 GM in IV NORMAL SALINE 50ML 50 ML IV SCH ×5 (01:52→23:43)
[2018-06-02 03:00] VITALS: BP 124/73
[2018-06-02] MEDS: fentaNYL PF VIAL 100 MCG/2 ML VIAL IV PRN ×2 (03:31→07:48)
[2018-06-02 05:59] LABS: CALCIUM 8.5 mg/dL (8.5-10.1); CREATININE 0.8 mg/dL (0.7-1.3); GFR 99.3; POTASSIUM 3.5 mmol/L (3.5-5.1)
[2018-06-02] MEDS: PANTOPRAZOLE 40 MG TABLET.DR. PO SCH (06:23)
[2018-06-02 07:00] VITALS: BP 138/89
[2018-06-02] MEDS: IPRATRPIUM/ALBUTEROL 0.5/2.5MG 3 ML NEBU. NEB SCH ×4 (07:05→20:24)
[2018-06-02] MEDS: VANCOMYCIN 1 GM in IV NORMAL SALINE 250ML 250 ML IV SCH ×3 (07:49→22:30)
--- NOTE | 2018-06-02 09:35 | RAD ---
CHEST PA LATERAL CLINICAL INDICATION: PNEUMONIA, COUGH COMPARISON: 05/31/2018 FINDINGS: Heart is normal in size. Lungs are hyperinflated. Aorta consolidation is seen in the medial aspect of the left lower lobe. Mild patchy opacities are seen in the left mid and lower lung zone. No pneumothorax. No pleural effusion. Visualized bony thorax is within normal limits. IMPRESSION: Findings of left lower lobe pneumonia. Delayed that Electronically signed by: Mario Cline DO (06/02/2018 9:31 AM) [facility]
[2018-06-02] MEDS: LACTOBACILLUS RHAMNOSUS GG 1 CAPSULE. PO SCH ×2 (09:42→21:17)
[2018-06-02] MEDS: POTASSIUM CHLORIDE 20 MEQ TABLET.ER. PO SCH (09:43)
[2018-06-02] MEDS: POLYETHYLENE GLYCOL 3350 17 GM PACKET. PO SCH (09:44)
[2018-06-02] MEDS: POTASSIUM CL 20MEQ D5-0.9%NACL 1,000 ML IV SCH (09:44)
--- NOTE | 2018-06-02 09:44 | PDOC ---
PULMONARY PROGRESS NOTES Subjective no soa Vitals Vital Signs Date Time Temp Pulse Resp B/P (MAP) Pulse Ox O2 Delivery O2 Flow Rate FiO2 06/02/18 08:00 Room Air 06/02/18 07:48 18 06/02/18 07:05 95 06/02/18 07:00 97.8 95 138/89 (105) 97.8 General: Alert, Oriented X4, No acute distress Lungs: Clear Cardiovascular: S1, S2 Abdomen: Soft, Non-tender Neuro Exam: Alert Extremities: No Edema Skin: Warm Labs Laboratory Tests Test 06/01/18 07:40 06/01/18 21:25 06/02/18 04:20 White Blood Count 5.7 x10^3/uL (4.0-11.0) Red Blood Count 3.87 x10^6/uL (4.30-5.70) Hemoglobin 11.3 g/dL (13.0-17.5) Hematocrit 32.8 % (39.0-53.0) Mean Corpuscular Volume 85 fL (79-100) Mean Corpuscular Hemoglobin 29 pg (25-35) Mean Corpuscular Hemoglobin Concent 34 g/dL (31-37) Red Cell Distribution Width 14.0 % (11.5-14.5) Platelet Count 137 x10^3/uL (140-400) Neutrophils (%) (Auto) 72 % (31-73) Lymphocytes (%) (Auto) 14 % (24-48) Monocytes (%) (Auto) 9 % (0-9) Eosinophils (%) (Auto) 4 % (0-3) Basophils (%) (Auto) 0 % (0-3) Neutrophils # (Auto) 4.1 x10^3uL (1.8-7.7) Lymphocytes # (Auto) 0.8 x10^3/uL (1.0-4.8) Monocytes # (Auto) 0.5 x10^3/uL (0.0-1.1) Eosinophils # (Auto) 0.2 x10^3/uL (0.0-0.7) Basophils # (Auto) 0.0 x10^3/uL (0.0-0.2) Sodium Level 141 mmol/L (136-145) 139 mmol/L (136-145) Potassium Level 2.9 mmol/L (3.5-5.1) 3.5 mmol/L (3.5-5.1) Chloride Level 104 mmol/L (98-107) 105 mmol/L (98-107) Carbon Dioxide Level 28 mmol/L (21-32) 26 mmol/L (21-32) Anion Gap 9 (6-14) 8 (6-14) Blood Urea Nitrogen 7 mg/dL (8-26) 8 mg/dL (8-26) Creatinine 0.8 mg/dL (0.7-1.3) 0.8 mg/dL (0.7-1.3) Estimated GFR (Cockcroft-Gault) 99.3 99.3 Glucose Level 104 mg/dL (70-99) 113 mg/dL (70-99) Calcium Level 8.1 mg/dL (8.5-10.1) 8.5 mg/dL (8.5-10.1) Vancomycin Level Trough 15.6 mcg/mL (10.0-20.0) Vancomycin Last Dose Date Unk Vancomycin Last Dose Time Unk Laboratory Tests Test 06/01/18 21:25 06/02/18 04:20 Vancomycin Level Trough 15.6 mcg/mL (10.0-20.0) Vancomycin Last Dose Date Unk Vancomycin Last Dose Time Unk Sodium Level 139 mmol/L (136-145) Potassium Level 3.5 mmol/L (3.5-5.1) Chloride Level 105 mmol/L (98-107) Carbon Dioxide Level 26 mmol/L (21-32) Anion Gap 8 (6-14) Blood Urea Nitrogen 8 mg/dL (8-26) Creatinine 0.8 mg/dL (0.7-1.3) Estimated GFR (Cockcroft-Gault) 99.3 Glucose Level 113 mg/dL (70-99) Calcium Level 8.5 mg/dL (8.5-10.1) Medications Active Scripts Medications Dose Route/Sig Max Daily Dose Days Date Category Dose Instructions Tylenol (Acetaminophen) 325 Mg Tablet 325 Mg PO PRN Q4HRS PRN 05/29/18 Reported Voltaren (Diclofenac Sodium) 100 Gm Gel..gram. 1 Gm TP QID 05/29/18 Reported Triamcinolone Acetonide 0.1% Oint (Triamcinolone Acetonide) 15 Gm Oint...g. 1 Leslee TP BID 05/29/18 Reported MIX WITH EUCERIN DIRECTED BY PHYSICIAN Florinda S Tablet (Sennosides/Docusate Sodium) 1 Each Tablet 2 Each PO DAILY 05/29/18 Reported Genteal Tears 0.1%-0.2%-0.3% (Dextran/Hypromellose/Glycerin) 15 Ml Drops 15 Ml OP TID 05/29/18 Reported Dexilant (Dexlansoprazole) 60 Mg Cap. 1 Cap PO DAILY 05/29/18 Reported Simvastatin 10 Mg Tablet 1 Tab PO QHS 05/29/18 Reported Polyethylene Glycol 3350 17 Gm Powd.pack 17 Gm PO PRN 12/13/13 Reported Thera-M Tablet (Multivits,Ca,Minerals/Iron/Fa) 1 Each Tablet 1 Each PO DAILY 12/13/13 Reported Docusate Sodium 100 Mg Capsule 100 Mg PO BID PRN 12/13/13 Reported Toprol Xl (Metoprolol Succinate) 50 Mg Tab.er.24h 50 Mg PO DAILY 12/11/13 Reported Comments CHEST PA LATERAL History: PNEUMONIA Comparison: AP chest, prior day. Findings: Pectus deformity and sternotomy wires redemonstrated. Cardiac size is normal. Linear interface with air medial along the lower right spine is due to air in the esophagus. There is left basilar airspace disease with air bronchograms. There is mild right basilar airspace disease. No pneumothorax. No pleural effusion. IMPRESSION: 1. Left basilar pneumonia is worse. 2. Mild right basilar airspace disease. Impression . 1. Aspiration pneumonia, suspecting Gram-negative pneumonia from episodes of vomiting/hematemesis. 2. Abnormal CT chest consistent with pneumonia. The tiny nodular opacities are suggesting an infectious etiology. 3. History of Marfan syndrome with pectus excavatum. 4. Abnormal esophagus. Follow GI recommendation . s/p EGD . ? healing M-W tear lesser curve. Some irregularity of SQ junction 5. Tachycardia, likely related to dehydration and aspiration. improved 6. fever , improved, on BS abx Plan . 1. on BS Abx 2. We will follow chest x-ray in am 3. Zosyn / vanc/ Zithromax 4. P.r.n. bronchodilators. 5. PPI. 6. Follow GI recommendations. 7. Discussed with TIMO GUERRERO MD Jun 02, 2018 09:44
--- NOTE | 2018-06-02 09:56 | PDOC ---
PROGRESS NOTES Subjective Subjective nauseated Objective Objective Vital Signs Date Time Temp Pulse Resp B/P (MAP) Pulse Ox O2 Delivery O2 Flow Rate FiO2 06/02/18 08:18 20 Room Air 06/02/18 07:05 95 06/02/18 07:00 97.8 95 138/89 (105) 97.8 Intake and Output 06/02/18 07:00 Intake Total 240 ml Output Total 3150 ml Balance -2910 ml Intake Oral 240 ml Output Urine Total 3150 ml Physical Exam Abdomen: Soft (reports tenderness with palpation; sizeable left inguinal hernia with extension to scrotum, soft, not fully reducible) Heart: Regular rate Extremities: No clubbing General: Alert HEENT: Atraumatic Lungs: Clear to auscultation MUSCULOSKELETAL: No deformity Psych/Mental Status: Mood NL Skin: No rashes, No breakdown COMMENT left testicular swelling Diagnosis Problem List Problems Medical Problems: (1) Bandemia Status: Acute (2) SIRS (systemic inflammatory response syndrome) Status: Acute (3) Swelling of left testicle Status: Acute Assessment Assessment Problems Medical Problems: (1) Bandemia Status: Acute (2) SIRS (systemic inflammatory response syndrome) Status: Acute (3) Swelling of left testicle Status: Acute FINAL IMPRESSION: 1. Upper gastrointestinal bleed.MW tear 2. Community-acquired pneumonia. 3. Possible esophagitis. 4. Marfan syndrome. 5. Pectus excavatum. 6. History of hip replacement. 7. Hypertension. 8. Hyperlipidemia. 9. Scrotal swelling lt side. 10.Ac bladder retention PLAN: advance diet diet EGD showed healing MW tear Hb remained stable ,12 pot 4.0, replaced pot KUB showed ileus iv antibiotics.changed to vanco+zosyn+zithromax for pneumonia Urology consult appreciated, inguinal hernia large lt side po protonix. surgical consent appreciated. d/c robison ? home tomorrow Plan Plan of Care Problems Medical Problems: (1) Bandemia Status: Acute (2) SIRS (systemic inflammatory response syndrome) Status: Acute (3) Swelling of left testicle Status: Acute Comment Review of Relevant I have reviewed the following items sy (where applicable) has been applied. Labs Laboratory Tests Test 06/01/18 21:25 06/02/18 04:20 Vancomycin Level Trough 15.6 mcg/mL (10.0-20.0) Vancomycin Last Dose Date Unk Vancomycin Last Dose Time Unk Sodium Level 139 mmol/L (136-145) Potassium Level 3.5 mmol/L (3.5-5.1) Chloride Level 105 mmol/L (98-107) Carbon Dioxide Level 26 mmol/L (21-32) Anion Gap 8 (6-14) Blood Urea Nitrogen 8 mg/dL (8-26) Creatinine 0.8 mg/dL (0.7-1.3) Estimated GFR (Cockcroft-Gault) 99.3 Glucose Level 113 mg/dL (70-99) Calcium Level 8.5 mg/dL (8.5-10.1) Microbiology 05/29/18 Blood Culture - Preliminary, Resulted NO GROWTH AFTER 3 DAYS Medications Current Medications Polyethylene Glycol (miraLAX PACKET) 17 gm DAILY PO Last administered on at 09:44; Start 06/01/18 at 12:00 Potassium Chloride (Klor-Con) 20 meq 1X ONCE PO Last administered on at 12:18; Start 06/01/18 at 12:00; Stop 06/01/18 at 12:01; Status DC Potassium Chloride (Klor-Con) 20 meq DAILYWBKFT PO Last administered on at 09:43; Start 06/02/18 at 08:00 Vancomycin HCl (Vancomycin Trough Level) 1 each 1X ONCE MC ; Start 06/01/18 at 13:30; Stop 06/01/18 at 13:31; Status Cancel Vancomycin HCl (Vancomycin Trough Level) 1 each 1X ONCE MC Last administered on 06/01/18at 21:30; Start 06/01/18 at 21:30; Stop 06/01/18 at 21:31; Status DC Vitals/I & O Vital Sign - Last 24 Hours 06/01/18 06/01/18 06/01/18 06/01/18 11:00 15:00 15:02 15:59 Temp 97.7 98.7 97.7 98.7 Pulse 93 96 Resp 16 16 B/P (MAP) 118/71 (87) 129/83 (98) Pulse Ox 96 94 O2 Delivery Room Air Room Air Room Air Room Air 06/01/18 06/01/18 06/01/18 06/01/18 19:00 19:33 20:10 20:25 Temp 97.9 97.9 Pulse 104 Resp 19 18 B/P (MAP) 120/78 (92) Pulse Ox 96 95 95 O2 Delivery Room Air Room Air Room Air Room Air 06/01/18 06/02/18 06/02/18 06/02/18 23:00 03:00 03:31 04:01 Temp 98.1 97.9 98.1 97.9 Pulse 91 93 Resp 17 18 B/P (MAP) 121/66 (84) 124/73 (90) Pulse Ox 96 97 97 97 O2 Delivery Room Air Room Air Room Air 06/02/18 06/02/18 06/02/18 06/02/18 07:00 07:05 07:48 08:00 Temp 97.8 97.8 Pulse 95 Resp 18 18 B/P (MAP) 138/89 (105) Pulse Ox 96 95 O2 Delivery Room Air Room Air Room Air Room Air 06/02/18 08:18 Resp 20 O2 Delivery Room Air Intake and Output 06/01/18 06/01/18 06/02/18 15:00 23:00 07:00 Intake Total 240 ml Output Total 1450 ml 1700 ml Balance -1210 ml -1700 ml Nutrition Consultation Dietary Evaluation: Recommendations by RD: Increase Calorie Intake, Protein supplementation Comments: REC continue liberlized diet: regular since po intake only 25%. REC advance diet as able to goal diet cardiac, will add oral supplements- vanilla ensure enlive to all meals Expected Outcomes/Goals: Diet advancement - met 06/01: new goal: to meet > 75% est nutrition needs via meals/supplements Malnutrition Findings: Food and Nutrition Intake (Sev: <50% est energy req 5days Body Fat Depletion (Non Severe: Mild Depletion Weight Status: Appropriate IHSAN PLUMMER MD Jun 02, 2018 09:56
[2018-06-02 11:00] VITALS: BP 114/72
--- NOTE | 2018-06-02 12:49 | PDOC ---
Subjective: Subjective: Didn't like the rice or meat but ate bread and jello. "Just a little" abd pain. Got up and walked. Objective: Vital Signs: Vital Signs Date Time Temp Pulse Resp B/P (MAP) Pulse Ox O2 Delivery O2 Flow Rate FiO2 06/02/18 11:00 98.5 90 18 114/72 (86) 95 Room Air 98.5 Labs: Laboratory Tests Test 06/01/18 21:25 06/02/18 04:20 Vancomycin Level Trough 15.6 mcg/mL Vancomycin Last Dose Date Unk Vancomycin Last Dose Time Unk Sodium Level 139 mmol/L Potassium Level 3.5 mmol/L Chloride Level 105 mmol/L Carbon Dioxide Level 26 mmol/L Anion Gap 8 Blood Urea Nitrogen 8 mg/dL Creatinine 0.8 mg/dL Estimated GFR (Cockcroft-Gault) 99.3 Glucose Level 113 mg/dL Calcium Level 8.5 mg/dL PE: GEN: NAD, talking on the phone LUNGS: CTAB HEART: RRR ABD: doesn't seem tender today NEURO/PSYCH: A & O 3 A/P: N/v - resolved Periumbilical pain - better -- Continue same per GI. CARLOS EMHTA Jun 02, 2018 12:49
[2018-06-02] MEDS: VANCOMYCIN PER PHARMACY MC PRN (14:33)
[2018-06-02 15:00] VITALS: BP 126/84
[2018-06-02 19:30] VITALS: BP 127/75
[2018-06-02] MEDS ORDERED: LEVO500T59 PO (21:32)
[2018-06-02 23:00] VITALS: BP 122/70
[2018-06-03 03:00] VITALS: BP 121/67
[2018-06-03] MEDS: PIPERACILLIN/TAZOBACTAM 3.375 GM in IV NORMAL SALINE 50ML 50 ML IV SCH ×2 (05:46→12:00)
[2018-06-03] MEDS: PANTOPRAZOLE 40 MG TABLET.DR. PO SCH (06:32)
[2018-06-03] MEDS: VANCOMYCIN 1 GM in IV NORMAL SALINE 250ML 250 ML IV SCH ×2 (06:32→12:04)
[2018-06-03 07:00] VITALS: BP 123/81
[2018-06-03] MEDS: IPRATRPIUM/ALBUTEROL 0.5/2.5MG 3 ML NEBU. NEB SCH ×2 (07:03→11:11)
--- NOTE | 2018-06-03 08:04 | RAD ---
Indication:PNEUMONIA TECHNIQUE:Portable AP chest X-ray COMPARISON:06/02/2018 FINDINGS: Heart is normal in size. Lungs are hyperinflated with improving patchy opacities in the left lung base. No pneumothorax or pleural effusion. Visualized bony thorax within normal limits. IMPRESSION: Improving left lower lobe and lingular pneumonia. Findings of COPD. Electronically signed by: Mario Cline DO (06/03/2018 8:00 AM) [facility]
[2018-06-03 08:34] LABS: CREATININE 0.8 mg/dL (0.7-1.3); GFR 99.3
[2018-06-03] MEDS: POLYETHYLENE GLYCOL 3350 17 GM PACKET. PO SCH (09:10)
[2018-06-03] MEDS: LACTOBACILLUS RHAMNOSUS GG 1 CAPSULE. PO SCH (09:11)
[2018-06-03] MEDS: POTASSIUM CHLORIDE 20 MEQ TABLET.ER. PO SCH (09:11)
--- NOTE | 2018-06-03 09:18 | PDOC2 ---
UROLOGY CONSULT Date of Consult Date of Consult DATE: 06/03/18 TIME: 09:02 Identification/Chief Complaint Chief Complaint Scrotal Swelling History of Present Illness Reason for Visit: Note entered in error. Please see progress note dated 06/03/18 Past Medical History Cardiovascular: No pertinent hx Pulmonary: No pertinent hx CENTRAL NERVOUS SYSTEM: Other GI: No pertinent hx Heme/Onc: No pertinent hx Musculoskeletal: Other Infectious disease: No pertinent hx Renal/: No pertinent hx Endocrine: No pertinent hx Social History No ALCOHOL: none Drugs: None Lives: with Family Domestic Violence: Neg Current Problem List Problems: (1) Swelling of left testicle Allergies Allergies: Coded Allergies: No Known Drug Allergies (Unverified , 05/31/18) ROS Review Of Systems: CONSTITUTIONAL: No fever or chills EYES: No recent changes SKIN: No rash or itching CARDIOVASCULAR: No chest pain, syncope, palpitations, or edema RESPIRATORY: No SOB or cough GASTROINTESTINAL: No nausea, vomiting or abdominal pain NEUROLOGICAL: No headaches or weakness ENDOCRINE: No cold or heat intolerance GENITOURINARY: No urgency or frequency of urination MUSCULOSKELETAL: No back pain or joint pain LYMPHATICS: No enlarged lymph nodes PSYCHIATRIC: No anxiety or depression Physical Exam Physical Exam: General: Pleasant, no acute distress, well groomed Eyes: conjunctiva anicteric, eyes full range of motion ENT: moist oral mucosa, normal dentition Neck: Trachea midline, no masses Respiratory: unlabored breathing, not using accessory muscles, Pelvic: swelling of left testicle related to hernia. Difficult to appreciate left testicle within scrotum on exam, right testicle WNL. Uncircumcised phallus , wnl. Abdomen: nontender, nondistended, Vitals VITALS Vital Signs Date Time Temp Pulse Resp B/P (MAP) Pulse Ox O2 Delivery O2 Flow Rate FiO2 06/03/18 07:04 97 Room Air 06/03/18 07:00 98.0 99 18 123/81 (95) 98.0 Labs Labs Laboratory Tests Test 06/01/18 21:25 06/02/18 04:20 06/03/18 07:07 Vancomycin Level Trough 15.6 mcg/mL (10.0-20.0) Vancomycin Last Dose Date Unk Vancomycin Last Dose Time Unk Sodium Level 139 mmol/L (136-145) Potassium Level 3.5 mmol/L (3.5-5.1) Chloride Level 105 mmol/L (98-107) Carbon Dioxide Level 26 mmol/L (21-32) Anion Gap 8 (6-14) Blood Urea Nitrogen 8 mg/dL (8-26) Creatinine 0.8 mg/dL (0.7-1.3) 0.8 mg/dL (0.7-1.3) Estimated GFR (Cockcroft-Gault) 99.3 99.3 Glucose Level 113 mg/dL (70-99) Calcium Level 8.5 mg/dL (8.5-10.1) Laboratory Tests Test 06/03/18 07:07 Creatinine 0.8 mg/dL (0.7-1.3) Estimated GFR (Cockcroft-Gault) 99.3 Images Images 1. Large echogenicity measuring 7.6 cm identified within the right and left testis probably large fat-containing left-sided inguinal hernia seen on CT scan. 2. Slight heterogeneous appearance of the right testis, nonspecific. Close interval follow-up examination can be considered. Assessment/Plan Assessment/Plan Note entered in error. Please see progress note dated 06/03/18 LATISHA LOPEZ APRN Jun 03, 2018 09:18
--- NOTE | 2018-06-03 09:26 | PDOC ---
PROGRESS NOTES Subjective Subjective feels good ,ready to go home Objective Objective Vital Signs Date Time Temp Pulse Resp B/P (MAP) Pulse Ox O2 Delivery O2 Flow Rate FiO2 06/03/18 07:04 97 Room Air 06/03/18 07:00 98.0 99 18 123/81 (95) 98.0 Intake and Output 06/03/18 07:00 Intake Total 470 ml Output Total 175 ml Balance 295 ml IV Total 350 ml Other 120 ml Output Urine Total 175 ml # Voids 3 Physical Exam Abdomen: Soft (reports tenderness with palpation; sizeable left inguinal hernia with extension to scrotum, soft, not fully reducible) Heart: Regular rate Extremities: No clubbing General: Alert HEENT: Atraumatic Lungs: Clear to auscultation MUSCULOSKELETAL: No deformity Psych/Mental Status: Mood NL Skin: No rashes, No breakdown COMMENT left testicular swelling Diagnosis Problem List Problems Medical Problems: (1) Bandemia Status: Acute (2) SIRS (systemic inflammatory response syndrome) Status: Acute (3) Swelling of left testicle Status: Acute Assessment Assessment Problems Medical Problems: (1) Bandemia Status: Acute (2) SIRS (systemic inflammatory response syndrome) Status: Acute (3) Swelling of left testicle Status: Acute FINAL IMPRESSION: 1. Upper gastrointestinal bleed.MW tear 2. Community-acquired pneumonia. 3. Possible esophagitis. 4. Marfan syndrome. 5. Pectus excavatum. 6. History of hip replacement. 7. Hypertension. 8. Hyperlipidemia. 9. Scrotal swelling lt side. 10.Ac bladder retention PLAN: po Levaquin for 5 days cxr improved advanced diet to regular diet EGD showed healing MW tear Hb remained stable ,12 pot 4.0, replaced pot home today Plan Plan of Care Problems Medical Problems: (1) Bandemia Status: Acute (2) SIRS (systemic inflammatory response syndrome) Status: Acute (3) Swelling of left testicle Status: Acute Comment Review of Relevant I have reviewed the following items sy (where applicable) has been applied. Labs Laboratory Tests Test 06/03/18 07:07 Creatinine 0.8 mg/dL (0.7-1.3) Estimated GFR (Cockcroft-Gault) 99.3 Microbiology 05/29/18 Blood Culture - Preliminary, Resulted NO GROWTH AFTER 4 DAYS Vitals/I & O Vital Sign - Last 24 Hours 1206/02/18 06/02/18 06/02/18 10:56 11:00 15:00 15:00 Temp 98.5 98.0 98.0 98.5 98.0 98.0 Pulse 90 98 98 Resp 18 18 18 B/P (MAP) 114/72 (86) 126/84 (98) 126/84 (98) Pulse Ox 95 95 95 O2 Delivery Room Air Room Air Room Air Room Air 06/02/18 06/02/18 06/02/18 06/02/18 15:10 19:30 20:00 20:26 Temp 98.2 98.2 Pulse 98 Resp 18 B/P (MAP) 127/75 (92) Pulse Ox 96 O2 Delivery Room Air Room Air Room Air Room Air 06/02/18 06/03/18 06/03/18 06/03/18 23:00 03:00 07:00 07:04 Temp 98.1 98.3 98.0 98.1 98.3 98.0 Pulse 92 93 99 Resp 17 18 B/P (MAP) 122/70 (87) 121/67 (85) 123/81 (95) Pulse Ox 95 97 96 97 O2 Delivery Room Air Room Air Room Air Room Air Intake and Output 06/02/18 06/02/18 06/03/18 15:00 23:00 07:00 Intake Total 470 ml Output Total 175 ml Balance 295 ml Nutrition Consultation Dietary Evaluation: Recommendations by RD: Increase Calorie Intake, Protein supplementation Comments: REC continue liberlized diet: regular since po intake only 25%. REC advance diet as able to goal diet cardiac, will add oral supplements- vanilla ensure enlive to all meals Expected Outcomes/Goals: Diet advancement - met 06/01: new goal: to meet > 75% est nutrition needs via meals/supplements Malnutrition Findings: Food and Nutrition Intake (Sev: <50% est energy req 5days Body Fat Depletion (Non Severe: Mild Depletion Weight Status: Appropriate IHSAN PLUMMER MD Jun 03, 2018 09:26
--- NOTE | 2018-06-03 09:41 | PDOC ---
Provider Note Provider Note Discharge summary dictated.#[id number]. IHSAN PLUMMER MD Jun 03, 2018 09:41
--- NOTE | 2018-06-03 10:46 | DS ---
DATE OF DISCHARGE: 06/03/2018 LOCATION: [facility]. REASON FOR ADMISSION TO THE HOSPITAL: 1. Upper GI bleed 2. Aspiration pneumonia. CONSULTATIONS: 1. Dr. Morin. 2. Dr. Whittaker. 3. Dr. Lee, Urology. 4. Dr. Sarah, General Surgery. PROCEDURES DONE: 1. EGD. 2. CT scan. 3. Ultrasound of the scrotum. HOSPITAL COURSE: The patient is a 58-year-old male, not feeling well, has been throwing up and after couple of days of throwing up, he had noticed some coffee ground emesis. The patient came with upper GI bleed, was admitted to the ICU, seen by GI, had EGD, which shows a healing Manjula-Rivera tear, mild GERD. The patient was put on Protonix drip, changed to IV, later on to oral. The patient also had fever. X-ray shows infiltrate in the lung, and it was felt that the patient could have aspirated causing pneumonia and was put on vancomycin and Zosyn. Repeat chest x-ray shows improvement. Fever was down. The patient was having left testicular swelling, had a sonogram, shows a hernia with fat. Surgical consult was recommended. Surgery said could do as outpatient, no emergency at this point. The patient had bladder retention, had to put a Snow catheter, which was removed after 48 hours, and the patient has been doing well, eating and ambulating well, having good BM as well as voiding well and the patient was discharged back to the snf on oral antibiotics. FINAL DIAGNOSES: 1. Upper gastrointestinal bleed secondary to Manjula-Rivera tear. 2. Aspiration pneumonia secondary to vomiting. 3. Large scrotal swelling secondary to hernia, needs further surgery down the road. 4. History of Marfan syndrome, has pectus excavatum. 5. Hypertension. 6. Acute Bladder retention, had to place Snow catheter for 48 hours and removed. Voiding okay now. DISPOSITION: [facility]. See [facility] for list of medication Follow up with a chest x-ray in 1 week. Discharged on Levaquin 500 mg daily for 5 days. IHSAN LPUMMER MD DR: SANDRA/maicol JOB#: [id number] / [id number] MTDD
[2018-06-03 11:00] VITALS: BP 134/92
--- NOTE | 2018-06-03 11:33 | PDOC ---
PULMONARY PROGRESS NOTES Subjective no soa Vitals Vital Signs Date Time Temp Pulse Resp B/P (MAP) Pulse Ox O2 Delivery O2 Flow Rate FiO2 06/03/18 11:11 96 Room Air 06/03/18 07:00 98.0 99 18 123/81 (95) 98.0 General: Alert, Oriented X4, No acute distress Lungs: Clear Cardiovascular: S1, S2 Abdomen: Soft, Non-tender Neuro Exam: Alert Extremities: No Edema Skin: Warm Labs Laboratory Tests Test 06/01/18 21:25 06/02/18 04:20 06/03/18 07:07 Vancomycin Level Trough 15.6 mcg/mL (10.0-20.0) Vancomycin Last Dose Date Unk Vancomycin Last Dose Time Unk Sodium Level 139 mmol/L (136-145) Potassium Level 3.5 mmol/L (3.5-5.1) Chloride Level 105 mmol/L (98-107) Carbon Dioxide Level 26 mmol/L (21-32) Anion Gap 8 (6-14) Blood Urea Nitrogen 8 mg/dL (8-26) Creatinine 0.8 mg/dL (0.7-1.3) 0.8 mg/dL (0.7-1.3) Estimated GFR (Cockcroft-Gault) 99.3 99.3 Glucose Level 113 mg/dL (70-99) Calcium Level 8.5 mg/dL (8.5-10.1) Laboratory Tests Test 06/03/18 07:07 Creatinine 0.8 mg/dL (0.7-1.3) Estimated GFR (Cockcroft-Gault) 99.3 Medications Active Scripts Medications Dose Route/Sig Max Daily Dose Days Date Category Dose Instructions Tylenol (Acetaminophen) 325 Mg Tablet 325 Mg PO PRN Q4HRS PRN 05/29/18 Reported Voltaren (Diclofenac Sodium) 100 Gm Gel..gram. 1 Gm TP QID 05/29/18 Reported Triamcinolone Acetonide 0.1% Oint (Triamcinolone Acetonide) 15 Gm Oint...g. 1 Leslee TP BID 05/29/18 Reported MIX WITH EUCERIN DIRECTED BY PHYSICIAN Florinda Pulido Tablet (Sennosides/Docusate Sodium) 1 Each Tablet 2 Each PO DAILY 05/29/18 Reported Genteal Tears 0.1%-0.2%-0.3% (Dextran/Hypromellose/Glycerin) 15 Ml Drops 15 Ml OP TID 05/29/18 Reported Dexilant (Dexlansoprazole) 60 Mg Cap. 1 Cap PO DAILY 05/29/18 Reported Simvastatin 10 Mg Tablet 1 Tab PO QHS 05/29/18 Reported Polyethylene Glycol 3350 17 Gm Powd.pack 17 Gm PO PRN 12/13/13 Reported Thera-M Tablet (Multivits,Ca,Minerals/Iron/Fa) 1 Each Tablet 1 Each PO DAILY 12/13/13 Reported Docusate Sodium 100 Mg Capsule 100 Mg PO BID PRN 12/13/13 Reported Toprol Xl (Metoprolol Succinate) 50 Mg Tab.er.24h 50 Mg PO DAILY 12/11/13 Reported Comments TECHNIQUE:Portable AP chest X-ray COMPARISON:06/02/2018 FINDINGS: Heart is normal in size. Lungs are hyperinflated with improving patchy opacities in the left lung base. No pneumothorax or pleural effusion. Visualized bony thorax within normal limits. IMPRESSION: Improving left lower lobe and lingular pneumonia. Findings of COPD. Electronically signed by: Mario Cline DO (06/03/2018 8:00 AM) [facility] Impression . 1. Aspiration pneumonia, suspecting Gram-negative pneumonia from episodes of vomiting/hematemesis. 2. Abnormal CT chest consistent with pneumonia. The tiny nodular opacities are suggesting an infectious etiology. 3. History of Marfan syndrome with pectus excavatum. 4. Abnormal esophagus. Follow GI recommendation . s/p EGD . ? healing M-W tear lesser curve. Some irregularity of SQ junction 5. Tachycardia, likely related to dehydration and aspiration. improved 6. fever , improved, on BS abx, resolved Plan . 1. on Abx 2. chest x-ray improved 3. can change to PO abx 4. P.r.n. bronchodilators. 5. PPI. 6. Follow GI recommendations. 7. Discussed with RN. ok with TIMO Mcmullen MD Jun 03, 2018 11:33
--- NOTE | 2018-06-03 12:28 | PDOC ---
LATISHA LOPEZ SHEET FOLDER 06/03/18 1228: SUBJECTIVE Subjective Ok today, no complaints. 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 Patient denies any enlargement of his scrotum, states it has been this size for "quite some time" and it is not painful or draining. OBJECTIVE Objective General: Pleasant, no acute distress, well groomed Eyes: conjunctiva anicteric, eyes full range of motion ENT: moist oral mucosa, normal dentition Neck: Trachea midline, no masses Respiratory: unlabored breathing, not using accessory muscles, Pelvic: swelling of left testicle related to hernia. Difficult to appreciate left testicle within scrotum on exam, right testicle WNL. Uncircumcised phallus , wnl. No open areas or odor noted. Abdomen: nontender, nondistended, Vital Signs Vital Signs Date Time Temp Pulse Resp B/P (MAP) Pulse Ox O2 Delivery O2 Flow Rate FiO2 06/03/18 11:11 96 Room Air 06/03/18 11:00 98.1 121 16 134/92 (106) 95 Room Air 98.1 06/03/18 08:00 Room Air 06/03/18 07:04 97 Room Air 06/03/18 07:00 98.0 99 18 123/81 (95) 96 Room Air 98.0 06/03/18 03:00 98.3 93 16 121/67 (85) 97 Room Air 98.3 06/02/18 23:00 98.1 92 17 122/70 (87) 95 Room Air 98.1 06/02/18 20:26 Room Air 06/02/18 20:00 Room Air 06/02/18 19:30 98.2 98 18 127/75 (92) 96 Room Air 98.2 06/02/18 15:10 Room Air 06/02/18 15:00 98.0 98 18 126/84 (98) 95 Room Air 98.0 06/02/18 15:00 98.0 98 18 126/84 (98) 95 Room Air 98.0 I & O Intake and Output 06/03/18 07:00 Intake Total 470 ml Output Total 175 ml Balance 295 ml IV Total 350 ml Other 120 ml Output Urine Total 175 ml # Voids 3 PHYSICAL EXAM Physical Exam General: Pleasant, no acute distress, well groomed Eyes: conjunctiva anicteric, eyes full range of motion ENT: moist oral mucosa, normal dentition Neck: Trachea midline, no masses Respiratory: unlabored breathing, not using accessory muscles, Pelvic: swelling of left testicle related to hernia. Difficult to appreciate left testicle within scrotum on exam, right testicle WNL. Uncircumcised phallus , wnl. No open areas or odor noted. Abdomen: nontender, nondistended, ASSESSMENT/PLAN Assessment/Plan Left testicle swelling related to left inguinal hernia that is asymptomatic per patient. I did discuss different options with him to include surgery vs watchful waiting. Patient is not bothered by the inguinal hernia and is opting to leave it alone for right now. Ok to discharge to SNF/home from a Urology perspective. We do recommend he follow up in four months with [facility] physicians for monitoring of echogenicity found on US with a repeat scrotal US prior. Will have pin chaser call patient. Patient also given card with Dr. Story's contact information on it. All questions answered. Will sign off but please call with questions or change in patient condition. COMMENT Lab Laboratory Tests Test 06/03/18 07:07 Creatinine 0.8 mg/dL (0.7-1.3) Estimated GFR (Cockcroft-Gault) 99.3 Nutrition Consultation Dietary Evaluation: Recommendations by RD: Increase Calorie Intake, Protein supplementation Comments: REC continue liberlized diet: regular since po intake only 25%. REC advance diet as able to goal diet cardiac, will add oral supplements- vanilla ensure enlive to all meals Expected Outcomes/Goals: Diet advancement - met 06/01: new goal: to meet > 75% est nutrition needs via meals/supplements Malnutrition Findings: Food and Nutrition Intake (Sev: <50% est energy req 5days Body Fat Depletion (Non Severe: Mild Depletion Weight Status: Appropriate GRANT STORY MD 06/03/18 1633: ASSESSMENT/PLAN Assessment/Plan Agree with assessment and plan. F/U in a few months with repeat scrotal ultrasound LATISHA LOPEZ APRN Jun 03, 2018 12:28 GRANT STORY MD Jun 03, 2018 16:33
[2018-06-03] MEDS: VANCOMYCIN PER PHARMACY MC PRN (13:19)
== END 2018-06-03 13:30 | disposition home or self-care (01) | DRG 368 ==
LOC: ER 10:54 → 1 WEST ICU 13:55 → 5 SOUTH 05-31 23:31
PROVIDERS: ADMIT Internal Medicine; ATTEND Internal Medicine
PROC: 0DJ08ZZ Inspection of Upper Intestinal Tract, Via Natural or Artificial Opening Endoscopic (ICD-10-PCS; principal; 2018-05-31 13:00)
DX: K22.6 Gastro-esophageal laceration-hemorrhage syndrome (principal); J69.0 Pneumonitis due to inhalation of food and vomit; Q87.40 Marfan syndrome, unspecified; I10 Essential (primary) hypertension; Z96.641 Presence of right artificial hip joint; K40.90 Unilateral inguinal hernia, without obstruction or gangrene, not specified as recurrent; N50.89 Other specified disorders of the male genital organs; K21.0 Gastro-esophageal reflux disease with esophagitis; R33.9 Retention of urine, unspecified; J44.9 Chronic obstructive pulmonary disease, unspecified; Z82.79 Family history of other congenital malformations, deformations and chromosomal abnormalities
CPT/HCPCS: 36415; 43235; 71045; 71046; 71260; 74018; 74177; 76870; 80048; 80053; 80202; 81001; 82274; 82553; 82565; 82962; 83605; 83690; 83735; 84484; 85007; 85018; 85025; 85610; 85730; 86850; 86900; 86901; 87040; 87641; 90471; 90756; 93005; 94003; 94640; 94760; C9113; J0456; J0696; J2405; J2543; J2704; J3010; J3370; J3480; J7030; J7040; J7050; J7120; J7620; Q9967; 97110; 97116; 97530; 97535; 99285-25; Q2035

== ENCOUNTER 2019-04-13 23:06 | Emergency (ER) | payer MEDICARE, OTHER ==
[~2019-04-13] VITALS: Ht 188 cm; Wt 77.1 kg
[~2019-04-13 23:06] MED LIST changes: +ACET325T9 PO; +DEXL60CA2 PO; +DEXT15DR17 OP; +DICL100G18 TP; +LEVO500T59 PO; +OMEP20CA10 PO; -OMEP20CA9 PO; +SENN-82 PO; +TRIA15OI TP
[2019-04-13] MEDS ORDERED: ONDANSETRON PF 4 MG/2 ML VIAL. IVP ONE (23:30)
[2019-04-13] MEDS ORDERED: FAMOTIDINE 20 MG/2 ML VIAL IVP ONE (23:30)
[2019-04-13] MEDS ORDERED: MORPHINE SULFATE 2 MG/ML VIAL. IV ONE (23:30)
[2019-04-13] MEDS ORDERED: IV NORMAL SALINE 1000ML BAG 1,000 ML IV ONE (23:30)
[2019-04-13 23:37] LABS: BASO # 0.1 x10^3/uL (0.0-0.2); BASO % 1 % (0-3); EOS # 0.2 x10^3/uL (0.0-0.7); EOS % 3 % (0-3); HEMATOCRIT 39.9 % (39.0-53.0); HEMOGLOBIN 13.7 g/dL (13.0-17.5); LYMPH # 2.2 x10^3/uL (1.0-4.8); LYMPH % 31 % (24-48); MEAN CORPUSCULAR HEMOGLOBIN 29 pg (25-35); MEAN CORPUSCULAR HGB CONC 34 g/dL (31-37); MEAN CORPUSCULAR VOLUME 84 fL (79-100); MONO # 0.7 x10^3/uL (0.0-1.1); MONO % 10 % (0-9); NEUT # 3.9 x10^3/uL (1.8-7.7); NEUT % 55 % (31-73); PLATELET COUNT 198 x10^3/uL (140-400); RED BLOOD COUNT 4.74 x10^6/uL (4.30-5.70); RED CELL DISTRIBUTION WIDTH 13.8 % (11.5-14.5); WHITE BLOOD COUNT 7.2 x10^3/uL (4.0-11.0)
[2019-04-13] MEDS ORDERED: IOHEXOL 300 MG/ML 100ML VIAL. IV ONE (23:45)
[2019-04-13] MEDS ORDERED: CONTRAST GIVEN. MC PRN (23:45)
[2019-04-13 23:47] LABS: CALCIUM 8.7 mg/dL (8.5-10.1); CREATININE 0.9 mg/dL (0.7-1.3); GFR 86.7; POTASSIUM 3.2 mmol/L (3.5-5.1)
[2019-04-13 23:59] LABS: ALBUMIN 3.6 g/dL (3.4-5.0); TOTAL BILIRUBIN 0.4 mg/dL (0.2-1.0); TOTAL PROTEIN 7.3 g/dL (6.4-8.2)
--- NOTE | 2019-04-13 23:59 | PHYS DOC ---
Past Medical History Past Medical History: GERD, High Cholesterol, Hypertension, Other Additional Past Medical Histor: marfan syndrome, "heart problems", pectus excavatum Past Surgical History: Hip Replacement Additional Past Surgical Histo: right hip, Chest wall surgery? Alcohol Use: None Drug Use: None Adult General Chief Complaint Chief Complaint: NAUSEA/VOMITING/DIARRHA HPI HPI Patient is a 58 year old female with a history of hypertension, acid reflex, Marfan syndrome, acid reflux, developmental delay, who presents to the ED today complaining of generalized abdominal pain with nausea and vomiting that began today. Patient is a very poor historian. Denies any hematemesis or melena. Denies any diarrhea. He states he doesn't remember when he had his last bowel mo vement and believes he could be constipated. PCP Review of Systems Review of Systems Constitutional: Denies fever or chills [] Eyes: Denies change in visual acuity, redness, or eye pain [] HENT: Denies nasal congestion or sore throat [] Respiratory: Denies cough or shortness of breath [] Cardiovascular: No additional information not addressed in HPI [] GI: Reports generalized abdominal pain with nausea vomiting, denies bloody stools or diarrhea [] : Denies dysuria or hematuria [] Musculoskeletal: Denies back pain or joint pain [] Integument: Denies rash or skin lesions [] Neurologic: Denies headache, focal weakness or sensory changes [] All other systems were reviewed and found to be within normal limits, except as documented in this note. Current Medications Current Medications Current Medications Medications (Trade) Dose Ordered Sig/[facility] Start Time Stop Time Status Last Admin Dose Admin Famotidine (Pepcid Vial) 20 mg 1X ONCE 04/13/19 23:30 04/13/19 23:31 DC 04/13/19 23:42 20 MG Info (CONTRAST GIVEN -- Rx MONITORING) 1 each PRN DAILY PRN 04/13/19 23:45 04/15/19 23:44 Iohexol (Omnipaque 300 Mg/ml) 75 ml 1X ONCE 04/13/19 23:45 04/13/19 23:46 DC 04/13/19 00:25 75 ML Morphine Sulfate (Morphine Sulfate) 2 mg 1X ONCE 04/13/19 23:30 04/13/19 23:31 DC 04/13/19 23:42 2 MG Ondansetron HCl (Zofran) 4 mg 1X ONCE 04/13/19 23:30 04/13/19 23:31 DC 04/13/19 23:42 4 MG Sodium Chloride 1,000 ml @ 1,000 mls/hr 1X ONCE 04/13/19 23:30 04/14/19 00:29 DC 04/13/19 23:42 1,000 MLS/HR Allergies Allergies Allergies Coded Allergies Type Severity Reaction Last Updated Verified No Known Drug Allergies 05/31/18 No Physical Exam Physical Exam Constitutional: Well developed, well nourished, no acute distress, non-toxic appearance. [] HENT: Normocephalic, atraumatic, bilateral external ears normal, oropharynx moist, no oral exudates, nose normal. [] Eyes: PERRLA, EOMI, conjunctiva normal, no discharge. [] Neck: Normal range of motion, no tenderness, supple, no stridor. [] Cardiovascular: Concave Chest with old healed surgical incision midline chest. Regular rhythm, + murmur [] Lungs & Thorax: Bilateral breath sounds clear to auscultation [] Abdomen: Rounded abdomen. Bowel sounds normal, soft, tenderness diffusely throughout the abdomen, no obvious right upper quadrant or right lower quadrant tenderness, no masses, no pulsatile masses. [] Skin: Warm, dry, no erythema, no rash. [] Back: No tenderness, no CVA tenderness. [] Extremities: No tenderness, no cyanosis, no clubbing, ROM intact, no edema. [] Neurologic: Alert and oriented X 3, normal motor function, normal sensory function, no focal deficits noted. Developmentally delayed Psychologic: Flat affect Current Patient Data Vital Signs Vital Signs Date Time Temp Pulse Resp B/P (MAP) Pulse Ox O2 Delivery O2 Flow Rate FiO2 04/13/19 23:42 96 Room Air Lab Values Laboratory Tests Test 04/13/19 23:25 White Blood Count 7.2 x10^3/uL (4.0-11.0) Red Blood Count 4.74 x10^6/uL (4.30-5.70) Hemoglobin 13.7 g/dL (13.0-17.5) Hematocrit 39.9 % (39.0-53.0) Mean Corpuscular Volume 84 fL (79-100) Mean Corpuscular Hemoglobin 29 pg (25-35) Mean Corpuscular Hemoglobin Concent 34 g/dL (31-37) Red Cell Distribution Width 13.8 % (11.5-14.5) Platelet Count 198 x10^3/uL (140-400) Neutrophils (%) (Auto) 55 % (31-73) Lymphocytes (%) (Auto) 31 % (24-48) Monocytes (%) (Auto) 10 % (0-9) H Eosinophils (%) (Auto) 3 % (0-3) Basophils (%) (Auto) 1 % (0-3) Neutrophils # (Auto) 3.9 x10^3/uL (1.8-7.7) Lymphocytes # (Auto) 2.2 x10^3/uL (1.0-4.8) Monocytes # (Auto) 0.7 x10^3/uL (0.0-1.1) Eosinophils # (Auto) 0.2 x10^3/uL (0.0-0.7) Basophils # (Auto) 0.1 x10^3/uL (0.0-0.2) Sodium Level 144 mmol/L (136-145) Potassium Level 3.2 mmol/L (3.5-5.1) L Chloride Level 106 mmol/L (98-107) Carbon Dioxide Level 30 mmol/L (21-32) Anion Gap 8 (6-14) Blood Urea Nitrogen 14 mg/dL (8-26) Creatinine 0.9 mg/dL (0.7-1.3) Estimated GFR (Cockcroft-Gault) 86.7 BUN/Creatinine Ratio 16 (6-20) Glucose Level 113 mg/dL (70-99) H Calcium Level 8.7 mg/dL (8.5-10.1) Total Bilirubin 0.4 mg/dL (0.2-1.0) Aspartate Amino Transferase (AST) 22 U/L (15-37) Alanine Aminotransferase (ALT) 39 U/L (16-63) Alkaline Phosphatase 99 U/L (46-116) Total Protein 7.3 g/dL (6.4-8.2) Albumin 3.6 g/dL (3.4-5.0) Albumin/Globulin Ratio 1.0 (1.0-1.7) Lipase 298 U/L (73-393) Ethyl Alcohol Level < 10 mg/dL (0-10) Laboratory Tests 04/13/19 23:25 Laboratory Tests 04/13/19 23:25 EKG EKG [] Radiology/Procedures Radiology/Procedures [] Course & Med Decision Making Course & Med Decision Making Pertinent Labs and Imaging studies reviewed. (See chart for details) This is a 58-year-old male patient developmentally delayed presenting to the ED today complaining of nausea, vomiting, abdominal pain that began today. CBC with a normal WBC, normal hematocrit and hemoglobin. CMP with potassium of 3.2, patient was given oral potassium replacement. CT of the abdomen and pelvic is negative for any acute findings. Patient was given 1 L of IV fluid, morphine and Zofran. I went to reevaluate patient. He is currently using the urinal, communicating with him about his lab results and CAT scan, he states he feels better. He was discharged to home. Given prescription for Zofran and dicyclomine. Instructed to follow-up with his own PCP in the course of this week. Dragon Disclaimer Dragon Disclaimer This electronic medical record was generated, in whole or in part, using a voice recognition dictation system. Departure Departure Impression: Primary Impression: Abdominal pain Additional Impression: Nausea and vomiting Disposition: 01 HOME, SELF-CARE Condition: STABLE Referrals: IHSAN PLUMMER MD (PCP) follow up in the course of this week Patient Instructions: Abdominal Pain, Nausea and Vomiting, [id number] Additional Instructions: You were evaluated in the emergency room for abdominal pain with nausea vomiting. Your work up in the emergency room was negative for any acute findings. Please follow-up with your doctor in the course of this week. Scripts Dicyclomine Hcl (DICYCLOMINE HCL) 20 Mg Tablet 1 TAB PO TID, #30 TAB 1 Refill Prov: TRENA BAEZ CIVIL TECHNICIAN 04/14/19 Ondansetron (ONDANSETRON ODT) 4 Mg Tab.rapdis 1 TAB PO PRN Q6-8HRS, #16 TAB Prov: TRENA BAEZ CIVIL TECHNICIAN 04/14/19 Problem Qualifiers Primary Impression: Abdominal pain Abdominal location: generalized Qualified Codes: R10.84 - Generalized a bdominal pain Additional Impression: Nausea and vomiting Vomiting type: unspecified Vomiting Intractability: non-intractable Qualified Codes: R11.2 - Nausea with vomiting, unspecified TRENA BAEZ APRN Apr 13, 2019 23:59
--- NOTE | 2019-04-14 00:38 | RAD ---
PQRS Compliance statement: One or more of the following individualized dose reduction techniques were utilized for this examination: 1. Automated exposure control. 2. Adjustment of the mA and/or kV according to patient size. 3. Use of iterative reconstruction technique. Indication:Abdominal pain. TECHNIQUE: CT abdomen and pelvis with IV contrast with multiplanar reformats. COMPARISON: 05/29/2018 FINDINGS: Heart is normal in size. No pericardial or pleural effusion. Pectus excavatum deformity noted. Clear lung bases. Liver, spleen, gallbladder, pancreas, adrenals within normal limits. Aeration of pelvis limited due to streak artifact from bilateral hip arthroplasty. No nephrolithiasis or hydronephrosis. No free pelvic fluid or ascites. Moderate-sized fat-containing left inguinal hernia. No enlarged retroperitoneal or pelvic adenopathy. No bowel obstruction. Normal appendix. No pneumoperitoneum. No suspicious bony lesion. IMPRESSION: No acute findings. Electronically signed by: Mario Cline DO (04/14/2019 12:35 AM) [facility]
[2019-04-14] MEDS ORDERED: DICY20TA3 PO (00:58)
[2019-04-14] MEDS ORDERED: ONDA4TAB12 PO (00:58)
[2019-04-14 01:12] VITALS: BP 153/93
[2019-04-14] MEDS ORDERED: POTASSIUM CHLORIDE 20 MEQ TABLET.ER. PO ONE (01:15)
[2019-04-14] MEDS ORDERED: MORPHINE SULFATE 10 MG/ML VIAL. IV ONE (01:15)
[2019-04-14 01:33] LABS: BILIRUBIN,URINE NEGATIVE (NEG); CLARITY,URINE CLEAR; COLOR,URINE YELLOW; NITRITE,URINE NEGATIVE (NEG); PROTEIN,URINE NEGATIVE (NEG-TRACE); UROBILINOGEN,URINE 0.2 mg/dL (0.2 mg/dL)
[2019-04-14 01:38] LABS: BACTERIA,URINE 0 /HPF (0-FEW); RBC,URINE 0 /HPF (0-2); SQUAMOUS EPITHELIAL CELL,UR OCC /LPF; WBC,URINE 0 /HPF (0-4)
[2019-04-14 01:44] LABS: AMPHETAMINE/METHAMPHETAMINE NEG (NEG); BARBITURATES NEG (NEG); BENZODIAZEPINES NEG (NEG); CANNABINOIDS NEG (NEG); COCAINE NEG (NEG); METHADONE NEG (NEG); OPIATES POS (NEG); PHENCYCLIDINE NEG (NEG)
== END 2019-04-14 01:35 | disposition home or self-care (01) ==
LOC: ER 23:06
DX: R10.84 Generalized abdominal pain (principal); R11.2 Nausea with vomiting, unspecified; K21.9 Gastro-esophageal reflux disease without esophagitis; E78.00 Pure hypercholesterolemia, unspecified; I10 Essential (primary) hypertension; Z96.649 Presence of unspecified artificial hip joint
CPT/HCPCS: 36415; 74177; 80053; 80307; 81001; 83690; 85025; 96361; 96374; 96375; 96376; 99285; G0480; J2270; J2405; J3490; J7030; Q9967

== ENCOUNTER 2020-10-07 10:10 | Emergency (ER) | payer OTHER, MEDICAID ==
[~2020-10-07] VITALS: Ht 190.5 cm; Wt 76.3 kg
[~2020-10-07 10:10] MED LIST changes: -DICL100G18 TP; +DICL100G54 TP; +DICY20TA3 PO; +LORA-169 PO; -LORA10TA55 PO; -MULT1TAB90 PO; +MULT1TAB92 PO; -OMEP20CA10 PO; +OMEP20CA16 PO; +ONDA4TAB12 PO; -POLY17PO28 PO; +POLY17PO52 PO; +SIMV10TA15 PO; -SIMV10TA3 PO
[2020-10-07 11:30] VITALS: BP 174/89
--- NOTE | 2020-10-07 12:18 | RAD ---
EXAM: 1. Frontal pelvis with two-view right hip. 2. Bilateral knee 2 views. HISTORY: Fall, cerebral palsy. COMPARISON: None. FINDINGS: A right total hip arthroplasty and a left hip bipolar hemiarthroplasty are in expected alig nment. There is a cerclage wire about the right femoral intertrochanteric region. There is some pelvi c rotation to the right, but no fractures are identified within the pelvis or either proximal femur. Atherosclerotic calcifications are noted. There are projectional limitations as the knees are contracted in flexion. No clear fractures are valeria ntified bilaterally. A suggested lucency traversing the right medial tibial plateau is likely an marc fact from an overlying skin fold. Joint spaces and alignment are grossly maintained bilaterally. Ther e is no joint effusion bilaterally. IMPRESSION: 1. Projectional limitations. No fractures are identified bilaterally. Correlate clinically. Electronically signed by: Jasmin Valenzuela MD (10/07/2020 12:16 PM) [id number]
--- NOTE | 2020-10-07 13:02 | RAD ---
EXAM: Right lower extremity CT without contrast. HISTORY: Pain status post fall. TECHNIQUE: Computed tomographic images of the right lower extremity were obtained without contrast. *One or more of the following individualized dose reduction techniques were utilized for this examina tion: 1. Automated exposure control. 2. Adjustment of the mA and/or kV according to patient size. 3. Use of iterative reconstruction technique. COMPARISON: Radiographs obtained on the same date. FINDINGS: There are bilateral hip arthroplasties, the left of which is only partially included on the [id number]. There is a cerclage wire traversing the right femoral stem component. There is no paxton dence of acute right hip periprosthetic fracture. Evaluation is limited due to motion and metallic ar tifact. The sacroiliac joints are intact. The pubis symphysis is intact. There is bilateral medial co mpartment joint space narrowing involving the knees. There is bilateral genu valgus. There is no knee effusion. There is bone demineralization and there are few small bone islands. There is atherosclero sis within the bilateral lower extremity arteries. There is a large fat-containing left inguinal ag ia. The bladder is unremarkable. IMPRESSION: 1. Bilateral hip arthroplasties, the right of which is in expected position and associated with the p roximal femoral stem component cerclage wire. The left hip arthroplasty is partially excluded from th e [id number]. There is no periprosthetic fracture. 2. 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 There is no acute finding involving the knees. 3. Large fat-containing left internal hernia. Electronically signed by: Victorina Greenwood MD (10/07/2020 12:59 PM) [id number]
--- NOTE | 2020-10-07 13:15 | PHYS DOC ---
Past Medical History Past Medical History: GERD, High Cholesterol, Hypertension, Other Additional Past Medical Histor: marfan syndrome, "heart problems", pectus excavatum Past Surgical History: Hip Replacement Additional Past Surgical Histo: right hip, Chest wall surgery?, BILAT HIP REPLACEMENTS Smoking Status: Never Smoker Alcohol Use: None Drug Use: None General Adult EDM: Chief Complaint: MECHANICAL FALL HPI: HPI: Patient is a 60 year old male with a history of Marfan syndrome, hypertension, high cholesterol, developmental delay, who presents to the ED today complaining of 6 out of 10 right hip pain and right knee pain that began after he fell getting out of bed. Patient denies any loss of consciousness. Denies hitting his head on the ground. States the pain is worse on laying on the right side. Patient has history of bilateral hip replacements. Describes the pain as throbbing and intermittent. Review of Systems: Review of Systems: Constitutional: Denies fever or chills. [] Musculoskeletal: Reports right hip pain and right knee pain. Denies back pain Integument: Denies rash. [] Neurologic: Denies headache, focal weakness or sensory changes. [] Psychiatric: Denies depression or anxiety. [] Heart Score: C/O Chest Pain: N/A Risk Factors: Risk Factors: DM, Current or recent (<one month) smoker, HTN, HLP, family history of CAD, obesity. Risk Scores: Score 0 - 3: 2.5% MACE over next 6 weeks - Discharge Home Score 4 - 6: 20.3% MACE over next 6 weeks - Admit for Clinical Observation Score 7 - 10: 72.7% MACE over next 6 weeks - Early Invasive Strategies Allergies: Allergies: Allergies Coded Allergies Type Severity Reaction Last Updated Verified No Known Drug Allergies 05/31/18 No Physical Exam: PE: Constitutional: Well developed, well nourished, no acute distress, non-toxic appearance. [] Skin: Warm, dry, no erythema, no rash. [] Back: No tenderness, no CVA tenderness. [] Extremities: Right lateral hip with an old scar from previous hip replacement. Right knee is internally rotated chronically. Limited range of motion to the right lower extremity. +2 right pedal pulse. Cap refill less than 2 seconds of right lower extremity. Sensation intact to the right lower extremity Neurologic: Alert and oriented X 3, normal motor function, normal sensory function, no focal deficits noted. [] Psychologic: Affect normal, judgement normal, mood normal. [] Current Patient Data: Vital Signs: Vital Signs Date Time Temp Pulse Resp B/P (MAP) Pulse Ox O2 Delivery O2 Flow Rate FiO2 10/07/20 11:30 98.2 95 20 174/89 (117) 98 Room Air 98.2 EKG: EKG: [] Radiology/Procedures: Radiology/Procedures: PROCEDURE: KNEE BILAT 2V EXAM: 1. Frontal pelvis with two-view right hip. 2. Bilateral knee 2 views. HISTORY: Fall, cerebral palsy. COMPARISON: None. FINDINGS: A right total hip arthroplasty and a left hip bipolar hemiarthroplasty are in expected alignment. There is a cerclage wire about the right femoral intertrochanteric region. There is some pelvic rotation to the right, but no fractures are identified within the pelvis or either proximal femur. Atherosclerotic calcifications are noted. There are projectional limitations as the knees are contracted in flexion. No clear fractures are identified bilaterally. A suggested lucency traversing the right medial tibial plateau is likely an artifact from an overlying skin fold. Joint spaces and alignment are grossly maintained bilaterally. There is no joint effusion bilaterally. IMPRESSION: 1. Projectional limitations. No fractures are identified bilaterally. Correlate clinically. Electronically signed by: Jasmin Valenzuela MD (10/07/2020 12:16 PM) [id number] PROCEDURE: HIP RIGHT 2V WITH PELVIS EXAM: 1. Frontal pelvis with two-view right hip. 2. Bilateral knee 2 views. HISTORY: Fall, cerebral palsy. COMPARISON: None. FINDINGS: A right total hip arthroplasty and a left hip bipolar hemiarthroplasty are in expected alignment. There is a cerclage wire about the right femoral intertrochanteric region. There is some pelvic rotation to the right, but no fractures are identified within the pelvis or either proximal femur. Atherosclerotic calcifications are noted. There are projectional limitations as the knees are contracted in flexion. No clear fractures are identified bilaterally. A suggested lucency traversing the right medial tibial plateau is likely an artifact from an overlying skin fold. Joint spaces and alignment are grossly maintained bilaterally. There is no joint effusion bilaterally. IMPRESSION: 1. Projectional limitations. No fractures are identified bilaterally. Correlate clinically. Electronically signed by: Jasmin Valenzuela MD (10/07/2020 12:16 PM) [id number] DICTATED and SIGNED BY: YANICK VALENZUELA MD DATE: 10/07/20 [id number] DICTATED and SIGNED BY: YANICK VALENZUELA MD DATE: 10/07/20 [id number] 0 []PROCEDURE: CT LOWER EXTREMITY WO RIGHT EXAM: Right lower extremity CT without contrast. HISTORY: Pain status post fall. TECHNIQUE: Computed tomographic images of the right lower extremity were obtained without contrast. *One or more of the following individualized dose reduction techniques were utilized for this examination: 1. Automated exposure control. 2. Adjustment of the mA and/or kV according to patient size. 3. Use of iterative reconstruction technique. COMPARISON: Radiographs obtained on the same date. FINDINGS: There are bilateral hip arthroplasties, the left of which is only partially included on the [id number]. There is a cerclage wire traversing the right femoral stem component. There is no evidence of acute right hip periprosthetic fracture. Evaluation is limited due to motion and metallic artifact. The sacroiliac joints are intact. The pubis symphysis is intact. There is bilateral medial compartment joint space narrowing involving the knees. There is bilateral genu valgus. There is no knee effusion. There is bone demineralization and there are few small bone islands. There is atherosclerosis within the bilateral lower extremity arteries. There is a large fat-containing left inguinal hernia. The bladder is unremarkable. IMPRESSION: 1. Bilateral hip arthroplasties, the right of which is in expected position and associated with the proximal femoral stem component cerclage wire. The left hip arthroplasty is partially excluded from the [id number]. There is no peripro sthetic fracture. 2. 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 There is no acute finding involving the knees. 3. Large fat-containing left internal hernia. Electronically signed by: Victorina Do MD (10/07/2020 12:59 PM) [id number] DICTATED and SIGNED BY: VICTORINA DO MD DATE: 10/07/20 [id number] 0 Course & Med Decision Making: Course & Med Decision Making Pertinent Labs and Imaging studies reviewed. (See chart for details) This is a 60-year-old male patient presented to the ED today complaining of right hip pain and right knee pain after falling while getting out of bed. Right hip and right knee x-rays were done but projection was poor. Right lower extremity CT was done which had no acute findings. Patient was discharged home. Follow-up with his own orthopedic doctor and PCP. Yessica Disclaimer: Yessica Disclaimer: This electronic medical record was generated, in whole or in part, using a voice recognition dictation system. Departure Departure Impression: Primary Impression: Fall Qualified Codes: W19.XXXA - Unspecified fall, initial encounter Additional Impressions: Right hip pain Right knee pain Qualified Codes: M25.561 - Pain in right knee Disposition: HOME / SELF CARE / HOMELESS Condition: STABLE Referrals: IHSAN PLUMMER MD (PCP) GENARO DORADO MD follow up with your own orthopedic doctor or the one we provided in 1-2 weeks Patient Instructions: Hip Pain, Knee Pain Additional Instructions: You were seen for right hip and right knee pain, your right lower extremity CTs were negative for any acute findings. Try to ice and elevate the extremity. Follow-up with your own orthopedic doctor or the provided orthopedic doctor in 1 to 2 weeks TRENA BAEZ APRN Oct 07, 2020 13:15
== END 2020-10-07 14:12 | disposition home or self-care (01) ==
LOC: ER 10:10
DX: G89.11 Acute pain due to trauma (principal); M25.551 Pain in right hip; M25.561 Pain in right knee; M25.562 Pain in left knee; K21.9 Gastro-esophageal reflux disease without esophagitis; E78.00 Pure hypercholesterolemia, unspecified; I10 Essential (primary) hypertension; Z98.890 Other specified postprocedural states; W06.XXXA Fall from bed, initial encounter; Y93.89 Activity, other specified; Y92.89 Other specified places as the place of occurrence of the external cause; Y99.8 Other external cause status
CPT/HCPCS: 73502; 73700; 99284; 73560-50

== ENCOUNTER → 2021-02-03 | Outpatient (CLI) | payer OTHER, MEDICAID ==
[~2021-02-03] MED LIST changes: +DALBAVANCIN HCL 1,500 MG in IV DEXTROSE 5% 500 ML IV ONE; +DAPT350V IV; +HYDR-2761 PO; +IV DEXTROSE 5% 50 ML IV ONE; +NAPR500T8 PO
[2021-02-03 11:03] VITALS: BP 141/70
== END ==
LOC: EDSTATUS 10:00 → OPS 10:10
PROVIDERS: ATTEND Internal Medicine Infectious Disease
DX: L08.9 Local infection of the skin and subcutaneous tissue, unspecified (principal); I10 Essential (primary) hypertension; K21.9 Gastro-esophageal reflux disease without esophagitis
CPT/HCPCS: 96365; J0875; J7060